=== PATIENT | male | born 1950 | race Caucasian/White ===

== ENCOUNTER 2016-09-10 08:25 | Emergency (ER) | payer OTHER, MEDICAID ==
--- NOTE | 2016-09-10 08:35 | EDPHY ---
H & P Time Seen by Provider: 09/10/16 08:34 HPI/ROS: CHIEF COMPLAINT: Right-sided rib pain HISTORY OF PRESENT ILLNESS: This 66-year-old man fell yesterday morning in the bathroom. He has chronic right-sided weakness after stroke and was getting up off the toilet and slipped. 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 He hit the right side of his chest on tub but was able to get up after about 5 minutes. He presents to the emergency department this morning with right-sided rib pain which started immediately after the fall. He drove himself to the hospital. Does not radiate and it is worse with movement or breathing. Moderate to severe in nature. Slightly alleviated by 1 Vicodin which he took at home. REVIEW OF SYSTEMS: Eye: no change in vision ENT: no sore throat Cardiac: HPI, no syncope. Traumatic chest pain only. Pulmonary: No coughing. Not short of breath. Right-sided chest pain worse with breathing. Abdomen: no vomiting, diarrhea, abdominal pain Musculoskeletal: no back pain or neck pain or extremity pain Skin: no rash Neuro: no headache or loss of consciousness. He has chronic right-sided weakness but walks with a cane and is able to drive. Constitutional: no fever : no urinary symptoms A comprehensive 10 point review of systems is otherwise negative aside from elements mentioned in the history of present illness. PAST MEDICAL HISTORY: Emergency department chart dated 07/28/2016 personally reviewed. Includes stroke in 2009, hypertension, cervical fusion, hepatitis-C, urinary retention, reactive airway disease. Social history: Nonsmoker, lives independently General Appearance: Alert and conversant, cooperative. Eyes: No scleral icterus. ENT, Mouth: Normal mucous membranes. No evidence of external head trauma on exam. Respiratory: Decreased respiratory effort from splinting, breath sounds equal, lungs are clear to auscultation. Cardiovascular: Regular rate and rhythm. Gastrointestinal: Right upper quadrant abdominal tenderness at the costal margin. No rebound or guarding. Neurological: Alert and oriented x3. Normally conversant. Patient has right- sided weakness but is able to move his right arm and leg and is able to walk with a cane. Skin: Scattered bruising. No laceration. Musculoskeletal: No cervical thoracic or lumbar spine tenderness. He is tender to palpation in the mid axillary line and anteriorly over the 10th 11th and 12th ribs on the right. Psychiatric: Not agitated. Emergency Department course/MDM: Percocet 1 p. o.. I-STAT and abdominal pelvis CT for right upper quadrant abdominal tenderness after trauma who is anticoagulated. Chest x-ray. 906: CBC noted but slightly elevated white blood cell count, hematocrit, and platelet count are similar to previous values. 1032: Results discussed, warned no driving, stable for discharge. Likely chest wall contusion without evidence for internal injury. Smoking Status: Never smoked Constitutional: Initial Vital Signs Temperature (C) 37 C 09/10/16 08:29 Heart Rate 78 09/10/16 08:29 Respiratory Rate 20 09/10/16 08:29 Blood Pressure 166/103 H 09/10/16 08:29 O2 Sat (%) 95 09/10/16 08:29 O2 Delivery Mode Room Air Allergies/Adverse Reactions: No Known Allergies Allergy (Verified 09/10/16 08:28) Home Medications: Medication Instructions Recorded Lisinopril 08/22/09 COUMADIN 04/27/11 Flomax 0.4 MG (RX) 07/29/13 Albuterol [Proventil Inhaler HFA 1 - 2 puffs IH Q4H 10/01/14 (RX)] amLODIPine BESYLATE [Norvasc 5 mg 5 mg PO DAILY 10/01/14 (RX)] oxyCODONE/APAP 5/325 [Percocet] 1 tab PO Q4-6PRN PRN #11 tab 09/10/16 Medical Decision Making - Diagnostics Imaging: Chest x-ray and left shoulder x-ray viewed by myself personally in the computer system are negative for acute traumatic injury. CT abdomen and pelvis to evaluate for liver injury reviewed personally by myself and discussed with Dr. Ravi at 10:25 a.m.. No traumatic injury. Specifically no chest pneumothorax or hemothorax, no rib fracture, no liver injury. Differential Diagnosis: Differential for right-sided pain after trauma considered including but not limited to pneumothorax, hemothorax, liver contusion, rib fracture. - Data Points Laboratory Results: Laboratory Results 09/10/16 08:49 09/10/16 09/10/16 08:49 08:48 WBC 12.46 H 10^3/uL (3.80-9.50) RBC 7.02 H 10^6/uL (4.40-6.38) Hgb 19.9 H g/dL (13.7-17.5) POC Hgb 20.7 H* gm/dL (14.5-17.3) Hct 56.5 H % (40.0-51.0) POC Hct 61 H* % (42.8-50.6) MCV 80.5 L fL (81.5-99.8) MCH 28.3 pg (27.9-34.1) MCHC 35.2 g/dL (32.4-36.7) RDW 19.8 H % (11.5-15.2) Plt Count 564 H 10^3/uL (150-400) MPV 10.3 fL (8.7-11.7) Neut % (Auto) 56.0 % (39.3-74.2) Lymph % (Auto) 27.5 % (15.0-45.0) Meagher % (Auto) 10.5 % (4.5-13.0) Eos % (Auto) 3.5 % (0.6-7.6) Baso % (Auto) 1.9 H % (0.3-1.7) Nucleat RBC Rel Count 0.0 % (0.0-0.2) Absolute Neuts (auto) 6.97 H 10^3/uL (1.70-6.50) Absolute Lymphs (auto) 3.43 H 10^3/uL (1.00-3.00) Absolute Monos (auto) 1.31 H 10^3/uL (0.30-0.80) Absolute Eos (auto) 0.43 H 10^3/uL (0.03-0.40) Absolute Basos (auto) 0.24 H 10^3/uL (0.02-0.10) Absolute Nucleated RBC 0.00 10^3/uL (0-0.01) Immature Gran % 0.6 % (0.0-1.1) Immature Gran # 0.08 10^3/uL (0.00-0.10) PT 27.5 H SEC (12.0-15.0) INR 2.53 H (0.83-1.16) POC Sodium 144 mEq/L (134-144) POC Potassium 3.7 mEq/L (3.3-5.0) POC Chloride 105 mEq/L (96-108) POC BUN 16 mg/dL (7-23) POC Creatinine 0.9 mg/dL (0.8-1.5) POC Glucose 122 H mg/dL (70-100) Medications Given: Discontinued Medications Hydromorphone HCl (Dilaudid) 0.5 mg IVP EDNOW ONE Stop: 09/10/16 08:46 Last Admin: 09/10/16 09:00 Dose: Not Given Ondansetron HCl (Zofran) 4 mg IVP EDNOW ONE Stop: 09/10/16 08:46 Last Admin: 09/10/16 09:17 Dose: Not Given Oxycodone/Acetaminophen (Percocet 5/325) 1 tab PO EDNOW ONE Stop: 09/10/16 08:47 Last Admin: 09/10/16 09:00 Dose: 1 tab Point of Care Test Results: 09/10/16 08:48 POC Sodium 144 POC Potassium 3.7 POC Chloride 105 POC BUN 16 POC Creatinine 0.9 POC Glucose 122 H Departure - Departure Disposition: Home, Routine, Self-Care Clinical Impression: Chest wall contusion Qualifiers: Encounter type: initial encounter Laterality: right Qualifier Code: (S20.211A) Contusion of right front wall of thorax, initial encounter Condition: Good Instructions: Contusion in Adults (ED) Referrals: Flower Daniel MD [Non Staff Provider (MD)] - As per Instructions Prescriptions: oxyCODONE/APAP 5/325 [Percocet] 1 tab PO Q4-6PRN PRN #11 tab PRN Reason: Pain
[2016-09-10] MEDS ORDERED: ONDANSETRON 4 MG/2 ML VIAL IVP ONE (08:45)
[2016-09-10] MEDS ORDERED: HYDROmorphONE/DILAUDID 1 MG/ML SYR IVP ONE (08:45)
[2016-09-10] MEDS ORDERED: OXYCODONE/APAP 5/325 TAB PO ONE (08:46)
[2016-09-10 09:03] LABS: % IMMATURE GRANULYOCYTES 0.6 % (0.0-1.1); ABSOLUTE IMMATURE GRANULOCYTES 0.08 10^3/uL (0.00-0.10); ADD DIFF? NO; ADD MORPH? NO; ADD SCAN? NO; ATYPICAL LYMPHOCYTE FLAG 0 (0-99); FRAGMENT RBC FLAG 20 (0-99); HEMATOCRIT 56.5 % (40.0-51.0); HEMOGLOBIN 19.9 g/dL (13.7-17.5); LEFT SHIFT FLG 0 (0-99); LIPEMIA HEMOLYSIS FLAG 90 (0-99); MEAN CELL HEMOGLOBIN 28.3 pg (27.9-34.1); MEAN CELL HEMOGLOBIN CONCENTR. 35.2 g/dL (32.4-36.7); MEAN CELL VOLUME 80.5 fL (81.5-99.8); MEAN PLATELET VOLUME 10.3 fL (8.7-11.7); PLATELET CLUMPS FLAG 10 (0-99); PLATELET COUNT 564 10^3/uL (150-400); RED BLOOD CELL COUNT 7.02 10^6/uL (4.40-6.38); RED CELL DISTRIBUTION WIDTH 19.8 % (11.5-15.2)
[2016-09-10 09:17] LABS: INR 2.53 (0.83-1.16); PROTIME(PATIENT) 27.5 SEC (12.0-15.0)
[2016-09-10] MEDS ORDERED: IOPAMIDOL (ISOVUE-300) 50 ML VIAL IV ONE (09:18)
--- NOTE | 2016-09-10 10:25 | DX ---
Left Shoulder, Three Views Clinical Indications: Pain. Findings: The humeral head is normally located in the glenoid fossa. No fracture or dislocation. Mi ld arthritis is present as expected for age. No calcifications of soft tissues. Impression: Mild arthritic changes. No fracture.
--- NOTE | 2016-09-10 10:33 | CT ---
CT Scan of the Abdomen and Pelvis With Contrast Indication: Pain following trauma. Technique: Multidetector CT images of the abdomen and pelvis were obtained following the uneventful i ntravenous administration of 95 mL Isovue-300 contrast. No oral contrast is administered. Axial image s are obtained at 5 mm intervals and reformatted at 1.5 mm thickness. The examination is reviewed on the workstation at multiple window/level settings. Sagittal and coronal reformations are performed. Dose reduction techniques were utilized for this examination. Abdomen: Lung bases: Bibasilar atelectasis is noted. The heart is enlarged. No displaced rib fracture is seen. No pneumothorax is identified. Liver: The liver enhances normally and the liver contour is normal. Biliary system: The gallbladder is contracted. There is no cholelithiasis. No abnormal fluid collecti ons are seen adjacent to the gallbladder. 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 Pancreas: Normal. Adrenals: Normal. Kidneys: No obstruction or solid masses. Nonobstructive renal calculi are seen bilaterally. Also, sim ple cyst are noted bilaterally with a 3 cm diameter cyst in the left and a 1.5 cm diameter cyst on th e right. Abdominal Aorta: Minimal calcified aortic plaque formation is seen with no aneurysmal dilatation iden tified. No bowel obstruction, ascites, or retroperitoneal lymphadenopathy. CT Pelvis Findings: By history, the appendix is surgically absent. No ascites is identified. The pros boggs is enlarged measuring 6 cm transverse x 5 cm AP x 5 cm cephalocaudal. Moderate fecal material is seen throughout the colon. There is mild straightening of the normal lumbar curvature. Multilevel spinal degenerative changes ar e seen most pronounced at L4-L5 where lumbar canal stenosis is suspected. Impression: 1. Negative for posttraumatic abnormality, specifically, a liver injury is not identified. 2. Basilar atelectasis and mild cardiac enlargement. Negative for pneumothorax. 3. See above report for additional findings. A preliminary report was called to Dr. Femi Reyes at 1030 hours in the Emergency Department.
--- NOTE | 2016-09-10 10:36 | DX ---
PA and Lateral Chest Clinical Indications: Chest pain. History of trauma. Findings: No focal pulmonary consolidation is identified. Basilar atelectasis is noted. Hilar and med iastinal contours are normal. There is no pneumothorax. A displaced rib fracture is not identified. T he heart is enlarged. Pulmonary vascularity is normal. No significant pleural effusions are seen. Postoperative changes of previous cervical spine surgery are noted. Impression: 1. Chest negative for acute posttraumatic sequela. 2. Cardiac enlargement without findings to suggest pulmonary edema.
[2016-09-10 10:37] VITALS: BP 174/104; PULSE 63; RESP 14; TEMP 97.3; O2SAT 92
== END 2016-09-10 10:41 | disposition home or self-care (01) ==
DX: S20.211A Contusion of right front wall of thorax, initial encounter (principal); I10 Essential (primary) hypertension; J45.909 Unspecified asthma, uncomplicated; Z79.01 Long term (current) use of anticoagulants; W18.11XA Fall from or off toilet without subsequent striking against object, initial encounter; Y92.002 Bathroom of unspecified non-institutional (private) residence as the place of occurrence of the external cause
CPT/HCPCS: 71020; 73030; 74177; 99285; Q9967; 82947-QW

== ENCOUNTER 2016-10-09 19:40 | Emergency (ER) | payer OTHER, MEDICAID ==
[2016-10-09 19:56] VITALS: TEMP 97.3
--- NOTE | 2016-10-09 19:58 | EDPHY ---
H & P Stated Complaint: urinary retention Time Seen by Provider: 10/09/16 19:57 - Medical/Surgical History Hx Asthma: Yes Hx Chronic Respiratory Disease: No Hx Diabetes: No Hx Cardiac Disease: Yes Hx Renal Disease: No Hx Cirrhosis: No Hx Alcoholism: No Hx HIV/AIDS: No Hx Splenectomy or Spleen Trauma: No Other PMH: CVA (2009), HTN, Cervical fusion, Chronic hep C, urinary retention, asthma. vertigo x 6 mos - Social History Smoking Status: Never smoked Constitutional: Initial Vital Signs Temperature (C) 36.3 C 10/09/16 19:55 Heart Rate 106 H 10/09/16 19:55 Respiratory Rate 20 10/09/16 19:55 Blood Pressure 202/119 H 10/09/16 19:55 O2 Sat (%) 91 L 10/09/16 19:55 O2 Delivery Mode Room Air Allergies/Adverse Reactions: No Known Allergies Allergy (Verified 10/09/16 19:55) Home Medications: Medication Instructions Recorded Lisinopril 08/22/09 COUMADIN 04/27/11 Flomax 0.4 MG (RX) 07/29/13 Albuterol [Proventil Inhaler HFA 1 - 2 puffs IH Q4H 10/01/14 (RX)] amLODIPine BESYLATE [Norvasc 5 mg 5 mg PO DAILY 10/01/14 (RX)] Medical Decision Making ED Course/Re-evaluation: CHIEF COMPLAINT: Urinary retention HISTORY OF PRESENT ILLNESS: The patient is a 66 y/o male complaining of urinary retention onset earlier this afternoon. He reports his last urination was around 14:00 today. He says, "I've been drinking beer all day" and apparently drove to the ED tonight. He is followed by a urologist for this issue and has required catheterization previously. REVIEW OF SYSTEMS: A 10 point review of systems was performed and is negative with the exception of the elements mentioned in the history of present illness. PHYSICAL EXAM: HR, BP, O2 Sat, RR. Temp noted General Appearance: Alert, well hydrated, appropriate, and non-toxic appearing. Smells of alcohol. Head: Atraumatic without scalp tenderness or obvious injury Eyes: Pupils equal, round, reactive to light and accommodation, EOMI, no trauma , bilateral conjunctival injection Ears: Clear bilaterally, no perforation, normal landmarks Nose: Atraumatic, no rhinorrhea, clear. Throat: There is no erythema or exudates, no lesions, normal tonsils, mucus membranes moist. Poor dentition Neck: Supple, 2+ carotid upstroke, nontender, no lymphadenopathy. Respiratory: No retractions, no distress, no wheezes, and no accessory muscle use. Lungs are clear to auscultation bilaterally. Cardiovascular: Regular rate and rhythm, no murmurs, rubs, or gallops. Bilateral carotid, radial, dorsalis pedis, and posterior tibial pulses intact. Good capillary refill all extremities. Gastrointestinal: Abdomen is soft, nontender, non-distended, no masses, no rebound, no guarding, no peritoneal signs. Musculoskeletal: Normal active ROM of all extremities, atraumatic. Neurological: Alert, appropriate, and interactive. The patient has normal DTRs and non-focal cranial nerves, motor, sensory, and cerebellar exam. Skin: No rashes, good turgor, no nodules on palpation. Face is flushed. Past medical history: Urinary retention, CVA, hepatitis C, asthma Past surgical history: cervical fusion Family history: noncontributory Social history: Heavy alcohol use DIFFERENTIAL DIAGNOSIS: The differential diagnosis for the patient's urinary retention included but was not limited to medication side effect, neurologic causes, outflow obstruction including prostatic hypertrophy, and infection. MEDICAL DECISION MAKING: This is a 66 y/o male presenting with 6 hours of urinary retention after "drinking beer all day." He has a history of urinary retention requiring catheterization previously. He denies other complaints. Bladder scan shows 600mL. Ruggiero catheter placed by RN with alleviation of patient's symptoms. Breathalyzer is below legal limit. Patient will be discharged home with leg bag and referral to urology for removal of catheter in 2 days. He agrees with plan. Departure - Departure Disposition: Home, Routine, Self-Care Clinical Impression: Urinary retention Condition: Good Instructions: [facility] Patient Education, Infection Prevention, Urinary Retention in Men (ED), Ruggiero Catheter Placement and Care (ED) Additional Instructions: Follow up with urology in 2 days for catheter removal. Return to ED for worsening of condition. [place]errals: [place],. [Primary Care Provider] - As per Instructions Jacob Darnell MD [Medical Doctor] - As per Instructions Report Scribed for: Wood Garibay Report Scribed by: Kaylah Carrera Date of Report: 10/09/16 Time of Report: 20:00
[2016-10-09 21:24] VITALS: BP 178/65; PULSE 85; RESP 18; O2SAT 94
== END 2016-10-09 21:24 | disposition home or self-care (01) ==
PROC: 0T9B70Z Drainage of Bladder with Drainage Device, Via Natural or Artificial Opening (ICD-10-PCS; principal; 2016-10-09)
DX: R33.9 Retention of urine, unspecified (principal); J45.909 Unspecified asthma, uncomplicated; I10 Essential (primary) hypertension; Z86.73 Personal history of transient ischemic attack (TIA), and cerebral infarction without residual deficits; Z79.01 Long term (current) use of anticoagulants

== ENCOUNTER → 2016-11-04 | Outpatient (CLI) | payer OTHER, MEDICAID | LOC: BHFA 10:00 | PROVIDERS: ATTEND Internal Medicine | DX: I10 Essential (primary) hypertension (principal); E78.5 Hyperlipidemia, unspecified; I27.2 Other secondary pulmonary hypertension; I73.9 Peripheral vascular disease, unspecified; I63.9 Cerebral infarction, unspecified ==

== ENCOUNTER → 2016-11-07 | Outpatient (CLI) | payer OTHER, MEDICAID | LOC: FIMAGING 10:13 | PROVIDERS: ATTEND Internal Medicine | DX: Z01.810 Encounter for preprocedural cardiovascular examination (principal); Z98.1 Arthrodesis status ==

== ENCOUNTER → 2016-11-14 | Outpatient (CLI) | payer OTHER, MEDICAID | LOC: BHFA 08:30 | PROVIDERS: ATTEND Internal Medicine Cardiovascular Disease | DX: R06.00 Dyspnea, unspecified (principal) ==

== ENCOUNTER → 2016-11-17 | Outpatient (CLI) | payer OTHER, MEDICAID | LOC: BHFA 13:00 | PROVIDERS: ATTEND Internal Medicine Cardiovascular Disease | DX: R06.09 Other forms of dyspnea (principal) | CPT/HCPCS: 78452; 93017; A9500; J2785 ==

== ENCOUNTER 2016-11-22 09:07 | Emergency (ER) | payer OTHER, MEDICAID ==
[2016-11-22 09:12] VITALS: BP 177/97; PULSE 88; RESP 18; O2SAT 92
--- NOTE | 2016-11-22 09:29 | EDPHY ---
H & P Stated Complaint: Wants pack removed-pranay Contreras - Personal History Current Tetanus/Diphtheria Vaccine: No - Medical/Surgical History Hx Asthma: Yes Hx Chronic Respiratory Disease: No Hx Diabetes: No Hx Cardiac Disease: Yes Hx Renal Disease: No Hx Cirrhosis: No Hx Alcoholism: No Hx HIV/AIDS: No Hx Splenectomy or Spleen Trauma: No Other PMH: CVA (2010), HTN, Cervical fusion, Chronic hep C, urinary retention, asthma. vertigo x 6 mos - Social History Smoking Status: Never smoked HPI/ROS: Chief complaint: Pack catheter removal History of present illness: This is a 66-year-old male with a history of BPH who presents to the emergency department requesting his Pack catheter be removed. Patient is followed by Dr. Lakhwinder Medina of Urology. He reports he had a catheter placed just over a month ago. It was replaced just over a week ago after it became heavily sedimented and bloody. He states the catheter has become sedimented and bloody again and would just like it removed. He denies any other complaints at this time. (Tj Adams) - Physical Exam Exam: General: Alert, nontoxic Abdomen: Soft, nondistended, nontender Genitourinary: Pack catheter in place, catheter bag does have some blood in it and is heavily sedimented (Tj Adams) Constitutional: Initial Vital Signs Heart Rate 88 11/22/16 09:10 Respiratory Rate 18 11/22/16 09:10 Blood Pressure 177/97 H 11/22/16 09:10 O2 Sat (%) 92 11/22/16 09:10 O2 Delivery Mode Room Air Allergies/Adverse Reactions: No Known Allergies Allergy (Verified 11/22/16 09:13) Home Medications: Medication Instructions Recorded Lisinopril 08/22/09 COUMADIN 04/27/11 Flomax 0.4 MG (RX) 07/29/13 Albuterol [Proventil Inhaler HFA 10/01/14 (RX)] amLODIPine BESYLATE [Norvasc 5 mg 10/01/14 (RX)] Medical Decision Making ED Course/Re-evaluation: Patient seen under the supervision of my secondary supervising physician Dr. Suze Negro. Patient presents to the emergency department requesting his Pack catheter be removed. He is afebrile, vital signs are stable. He is nontoxic. Pack catheter bag does appear to be heavily sedimented with blood in it. I have discussed options with him including following up with his urologist, just changing out the Pack catheter but he wants it to be completely removed and to be discharged. I have discussed that it is likely he will have recurrence of urinary retention. He states he will follow up with his urologist, Dr. Contreras. I have consulted with his Urology group, Dr. Willis who is aware the Pack catheter has been removed. (Tj Adams) This patient was primarily evaluated and managed by the physician planning assistant. I am the secondary supervising physician. (Suze Negro) Departure - Departure Disposition: Home, Routine, Self-Care Clinical Impression: Encounter for Pack catheter removal Condition: Good Instructions: Pack Catheter Placement and Care (ED) Additional Instructions: Follow-up with your urologist this week for recheck If symptoms worsen or new symptoms develop return to the emergency room for recheck Referrals: Cathy Ying, [Primary Care Provider] - As per Instructions
[2016-11-22 09:54] VITALS: TEMP 97.7
== END 2016-11-22 09:55 | disposition home or self-care (01) ==
DX: Z46.6 Encounter for fitting and adjustment of urinary device (principal); J45.909 Unspecified asthma, uncomplicated; I10 Essential (primary) hypertension; Z79.01 Long term (current) use of anticoagulants; Z86.73 Personal history of transient ischemic attack (TIA), and cerebral infarction without residual deficits

== ENCOUNTER 2016-12-22 10:16 | Observation (INO) | payer OTHER, MEDICAID ==
[~2016-12-22 10:16] MED LIST: levOFLOXACIN 500 MG/DEXTROSE 100 ML IV ONE
[2016-12-22] MEDS ORDERED: levOFLOXACIN 500 MG/DEXTROSE/100 ML BAG IV ONE (10:53)
[2016-12-22] MEDS ORDERED: LIDOCAINE 1% 2 ML INJ ONE (10:54)
[2016-12-22] MEDS ORDERED: LIDOCAINE 1% 5 ML SDV ID PRN (11:19)
[2016-12-22] MEDS ORDERED: LR 1,000 ML IV ONE (11:19)
[2016-12-22 11:36] LABS: INR 1.06 (0.83-1.16); PROTIME(PATIENT) 13.7 SEC (12.0-15.0)
[2016-12-22 11:37] LABS: APTT 31.5 SEC (23.0-38.0)
[2016-12-22] MEDS ORDERED: LIDOCAINE 2% 5 ML SDV ONE (16:49)
[2016-12-22] MEDS ORDERED: fentaNYL 100 MCG/2 ML INJ ONE ×3 (16:49→18:12)
[2016-12-22] MEDS ORDERED: PROPOFOL 200 MG/20 ML VIAL ONE ×2 (16:49)
[2016-12-22] MEDS ORDERED: DEXAMETHASONE 4 MG/ML VIAL ONE (16:50)
--- NOTE | 2016-12-22 16:50 | POSTOPPROG ---
Post Op Note Date of Operation: 12/22/16 Surgeon: Marina Medina (# [id number]) Anesthesia: GET(General Endotracheal) Pre-op Diagnosis: BPH w/ urinary retention Post-op Diagnosis: 1. BPH w/ urinary retention 2. Bladder calculi Procedure: 1. Complex cystolitholapaxy w/ holmium laser 2. Greenlight PVP Findings: See op note Inf/Abcess present in the surg proc area at time of surgery?: No EBL: 50-100 (100 cc) Complications: None Specimen(s): Bladder calculus fragments
[2016-12-22] MEDS ORDERED: DIAZEPAM 10 MG/2 ML SYR ONE (16:58)
[2016-12-22] MEDS ORDERED: LABETALOL HCL 5 MG/ML 20 ML MDV ONE (18:12)
[2016-12-22] MEDS ORDERED: morphINE *ANESTHESIA ONLY* 10 MG/ML VIAL ONE (18:33)
[2016-12-22] MEDS ORDERED: LIDOCAINE 2% JELLY 5 ML TUBE TP PRN (19:16)
[2016-12-22] MEDS ORDERED: ONDANSETRON 4 MG/2 ML VIAL IVP PRN (19:16)
[2016-12-22] MEDS ORDERED: OPIUM/BELLADONNA ALKALO SUPP PR PRN (19:16)
[2016-12-22] MEDS ORDERED: LABETALOL HCL 50 MG/10 ML SYR ONE (19:22)
[2016-12-22] MEDS ORDERED: D5W 1/2 NS 1,000 ML IV SCH (19:30)
--- NOTE | 2016-12-22 19:43 | GOP ---
[f rep st] OPERATIVE REPORT DATE OF OPERATION: 12/22/2016 SURGEON: Marina Medina MD ANESTHESIA: General endotracheal. PREOPERATIVE DIAGNOSIS: Benign prostatic hypertrophy with urinary retention. POSTOPERATIVE DIAGNOSIS: 1. Benign prostatic hypertrophy with urinary retention. 2. Bladder calculi. PROCEDURE PERFORMED: 1. Complex cystolitholapaxy with holmium laser. 2. GreenLight photovaporization of the prostate. FINDINGS: 1. Significant BPH. 2. Multiple wafer thin bladder calculi. SPECIMENS: Bladder calculus fragments. ESTIMATED BLOOD LOSS: Approximately 100 cc. INDICATIONS: This gentleman has had recurrent urinary retention requiring indwelling Ruggiero catheter for the last several months. He has been noted to have BPH with significant obstruction on office cystoscopy and urodynamics. He had an indwelling Ruggiero catheter until approximately 2 weeks ago when he requested to have it removed. He presents for operative management at this time. The indications for the procedures, as well as potential risks and complications, were discussed with the patient preoperatively. He appeared to understand, his questions were answered, and he wished to proceed. Written informed surgical consent was thereafter obtained. DESCRIPTION OF PROCEDURE: The patient was brought to the operating room and administered general endotracheal anesthesia. He was carefully placed in the dorsal lithotomy position on the cystoscopic table. The genital area was sterilely prepped with Betadine scrub and paint then draped in the usual sterile fashion. Cystoscopy was initially performed with the GreenLight XPS laser bridge and sheath utilizing the 30 degree lens. Anterior urethra was unremarkable. Posterior urethra revealed significant circumferential BPH and secondary obstruction with a prominent intravesical median lobe. Noted within the bladder were several wafer thin calculi that measured up to approximately 2 cm in length each. The bladder was heavily trabeculated. Full cystoscopy was previously performed and was not repeated here. These calculi were not present at the time of office cystoscopy, which was performed about 2 months ago. The 550 micron holmium laser fiber was advanced through the laser bridge and utilized to fragment the calculi into minute pieces. These were extracted from the bladder using an Ellik evacuator. I then turned my attention to performing the GreenLight photovaporization of the prostate. The GreenLight XPS fiber was brought onto the field and inserted through the laser bridge. Starting with 60 joshi of energy, I painted the prostatic mucosal surface from the bladder neck and extending back toward the verumontanum. I gradually increased to a maximum of 120 joshi of energy, which was the maximum setting used throughout the laser vaporization portion of the case. While vaporizing the anterior tissue near the bladder neck, I did encounter some significant venous bleeding, and possibly arterial bleeding, that I could not control with the laser. Therefore, I temporarily inserted the Sprague resectoscope with a button electrode and thoroughly cauterized the bleeding area until hemostasis was achieved. I then resumed GreenLight photovaporization of the prostate with the GreenLight XPS fiber. Vaporization was performed circumferentially down to approximately capsular fibers. The adenoma near the verumontanum was vaporized with no more than 100 joshi of energy in order to minimize heat exposure to the external urinary sphincter. At the conclusion of the procedure, the prostatic fossa was widely patent, ureteral orifices were well-preserved, and no vaporization had taken place distal to the verumontanum. The instruments were removed and a 22-Turkish, 3- way Ruggiero catheter inserted with the use of a catheter guide. 35 cc of sterile fluid was placed in the balloon and the catheter irrigated manually at the end of the case with the return being dark pink. The catheter was connected to continuous irrigation, and gauze traction was placed around the catheter against the penile glans to assist with initial hemostasis. The patient was then awakened, extubated, transferred to his bed, then taken to the recovery room. He tolerated the procedure well overall. COMPLICATIONS: None. DISPOSITION: He was transferred to the recovery room in stable condition. Because of his coagulopathy history and somewhat more bleeding that was encountered intraoperatively than would be typically seen, I will be admitting him overnight for continuous bladder irrigation. /[id number]/MODL MTDD
[2016-12-22] MEDS ORDERED: ENALAPRILAT DIHYDRATE 1.25 MG/ML VIAL ONE (19:49)
[2016-12-22] MEDS: HYDROCODONE/APAP 5/325 TAB PO PRN (21:21)
[2016-12-23] MEDS: HYDROCODONE/APAP 5/325 TAB PO PRN (01:52)
[2016-12-23] MEDS ORDERED: amLODIPine BESYLATE 5 MG TAB PO SCH (09:00)
[2016-12-23] MEDS ORDERED: ALBUTEROL 200 PUFFS/18 GM MDI IH SCH (09:00)
[2016-12-23 09:19] VITALS: RESP 18
--- NOTE | 2016-12-23 10:00 | SOAPPROG ---
SOAP Progress Note Assessment/Plan: Assessment: POD 1 s/p TURBT - doing well. Plan: D/C w/ Ruggiero. Office removal on Monday. Resume anticoags as ordered. Objective: Vital Signs Temp Pulse Resp BP Pulse Ox 36.4 C 72 18 130/85 H 92 12/23/16 07:32 12/23/16 09:11 12/23/16 09:11 12/23/16 08:24 12/23/16 09:11 12/22/16 12/23/16 12/24/16 05:59 05:59 05:59 Intake Total 1440 Output Total 0 1750 Balance 1440 -1750 PT 13.7 SEC (12.0-15.0) 12/22/16 11:00 INR 1.06 (0.83-1.16) 12/22/16 11:00 Physical Exam - Physical Exam General Appearance: WD/WN, alert, no apparent distress Abdomen: non-tender, soft Male Genitalia: other (urine slightly blood tinged off CBI) Skin: warm/dry Extremities: non-tender Neuro/Psych: alert, normal mood/affect ICD10 Worksheet Patient Problems: Problems Problem Status Onset Acute retention of urine Acute
[2016-12-23] MEDS ORDERED: chlorproMAZINE HCL 25 MG TAB PO ONE (11:30)
[2016-12-23 12:16] VITALS: BP 140/84; PULSE 71; TEMP 97.9; O2SAT 91
== END 2016-12-23 12:30 | disposition home or self-care (01) ==
LOC: FSGY 10:16 → F1N 19:15
PROVIDERS: ADMIT Specialist; ATTEND Specialist
DX: R33.9 Retention of urine, unspecified (principal); N40.0 Benign prostatic hyperplasia without lower urinary tract symptoms; R35.1 Nocturia; R03.0 Elevated blood-pressure reading, without diagnosis of hypertension; R97.20 Elevated prostate specific antigen [PSA]; Z87.442 Personal history of urinary calculi; Z85.828 Personal history of other malignant neoplasm of skin; Z86.19 Personal history of other infectious and parasitic diseases; Z86.73 Personal history of transient ischemic attack (TIA), and cerebral infarction without residual deficits; Z79.01 Long term (current) use of anticoagulants
CPT/HCPCS: 52317; 52648; J1100; J1956; J2704; J3010; J3490; 82365-90

== ENCOUNTER → 2017-12-08 | Outpatient (CLI) | payer OTHER, MEDICAID | LOC: FIMAGING 08:09 | PROVIDERS: ATTEND Internal Medicine | DX: K80.20 Calculus of gallbladder without cholecystitis without obstruction (principal); N28.1 Cyst of kidney, acquired; B18.2 Chronic viral hepatitis C ==

== ENCOUNTER 2018-06-20 09:49 | Emergency (ER) | payer OTHER, MEDICAID ==
[2018-06-20 10:03] VITALS: BP 153/100
--- NOTE | 2018-06-20 10:16 | EDPHY ---
H & P Stated Complaint: right foot- ingrown toenail big toe, blood blister pinky toe, heel problem Source: Patient Exam Limitations: No limitations - Personal History Current Tetanus Diphtheria and Acellular Pertussis (TDAP): Yes - Medical/Surgical History Hx Asthma: Yes Hx Chronic Respiratory Disease: No Hx Diabetes: No Hx Cardiac Disease: Yes Hx Renal Disease: No Hx Cirrhosis: No Hx Alcoholism: No Hx HIV/AIDS: No Hx Splenectomy or Spleen Trauma: No Other PMH: CVA (2010), HTN, Cervical fusion, Chronic hep C, urinary retention, asthma. vertigo x 6 mos - Social History Smoking Status: Never smoked Time Seen by Provider: 06/20/18 10:15 HPI/ROS: HPI: This is a 60-year-old male who presents with Chief Complaint: right foot- ingrown toenail big toe, blood blister pinky toe, heel problem Location: Right foot Quality: Ingrown toenail, blood blister, heel Duration: 1 month Signs and Symptoms: No bleeding, no radiation, no numbness, no weakness, no tingling, no incontinence, no decreased range of motion, no swelling, + pain, no fever Timing: Daily Severity: Mild Context: Patient has a history of CVA in 2009 On Coumadin, presents with multiple complaints on his right foot. He reports that his heel is dry and cracked, he has an ingrown toenail on his right great toe and his right pinky toe has a blood blister on the medial aspect. He saw Podiatry last week and was given antibiotics and had his ingrown toenail removed but he reports that he has not taken antibiotics and still has pain. Uses a cane to aid ambulation. Denies drainage, bleeding, radiation, weakness, decreased range of motion. Reports he had a blood draw this morning to determine if he has"bone cancer." Modifying Factors: See above Comment: ROS: A comprehensive 10 system review of systems is otherwise negative aside from elements mentioned in the history of present illness. MEDICAL/SURGICAL/SOCIAL HISTORY: Medical history: CVA (2010), HTN, Cervical fusion, Chronic hep C, urinary retention, asthma vertigo x 6 mos Surgical history: Denies Social history: Disabled. Never smoked. CONSTITUTIONAL: Nontoxic-appearing, chronically ill-appearing, elderly white male, awake and alert, no obvious distress HEENT: Atraumatic and normocephalic. NECK: supple. EXTREMITIES: 2/2 pulses, strength 5/5, right Ankle: Plantar flexion to 50, dorsiflexion to 20. Foot inversion to 35 degree. No tenderness/swelling Anterior talofibular ligament. No tenderness/swelling Calcaneofibular ligament , no tenderness/swelling posterior talofibular ligament, no tenderness/swelling posterior inferior tibiofibular ligament. Achilles tendon intact. Right great toe shows no significant erythema in the lateral or proximal nail fold; no fluctuance. Right little pinky toe on the medial aspect DIP/PIP/MCP flexion/ extension intact with good light touch sensation. no deformities, no clubbing, no cyanosis or edema. NEUROLOGICAL: no focal neuro deficits. GCS 15. Light touch sensation intact. SKIN: Warm and dry, no erythema. no rash. Good capillary refill. (Anisha Rizvi) Constitutional: Initial Vital Signs Temperature (C) 36.4 C 06/20/18 09:59 Heart Rate 78 06/20/18 09:59 Respiratory Rate 16 06/20/18 09:59 Blood Pressure 153/100 H 06/20/18 09:59 O2 Sat (%) 92 06/20/18 09:59 O2 Delivery Mode Room Air Allergies/Adverse Reactions: No Known Allergies Allergy (Verified 11/22/16 09:13) Home Medications: Medication Instructions Recorded Albuterol [Proventil Inhaler HFA 1 - 2 puffs IH DAILY PRN 12/22/16 (*)] Atorvastatin Calcium [Lipitor 40 40 mg PO DAILY 12/22/16 mg (*)] Gabapentin [Neurontin 100 MG (*)] 100 mg PO DAILY PRN 12/22/16 Lisinopril [Zestril 10 mg (*)] 10 mg PO DAILY 12/22/16 amLODIPine BESYLATE [Norvasc 5 mg 5 mg PO DAILY 12/22/16 (*)] Albuterol [Ventolin Hfa Inhaler] 2 puffs IH DAILY #0 mdi 12/23/16 Enoxaparin [Lovenox 80 MG (*)] 80 mg SQ [id number] #0 12/23/16 Hydrocodone/APAP 5/325 [[place] 1 - 2 tab PO Q4 PRN #15 tab 12/23/16 5/325 (*)] Warfarin Sodium [Coumadin 5MG (*)] 2.5 mg PO MOWEFR #0 12/23/16 Warfarin Sodium [Coumadin 5MG (*)] 5 mg PO SUTUTHSA #0 12/23/16 amLODIPine BESYLATE [Norvasc 5 mg 5 mg PO DAILY #0 tab 12/23/16 (*)] Medical Decision Making - Diagnostics Imaging Results: Imaging Impressions Foot X-Ray 06/20/18 10:40 Impression: 1. Mild degenerative changes right first toe with mild hallux valgus is detailed above. ED Course/Re-evaluation: Vital signs reviewed and show mildly elevated blood pressure. I provided local anesthesia of 1% lidocaine at his right great toe lateral nail folds for immediate relief and discomfort. Cleaned with soap and water; bacitracin and clean sterile dressing applied. Given Augmentin in the ER and advised to continue antibiotic prescribed by Podiatry. Right little toe overlaps the right 4th toe causing rubbing and abrasion; 2 x 2 gauze placed in between the 4th and 5th toes to prevent rubbing. Right foot x-ray my read shows degenerative changes, no calcaneal spur, no fracture. No signs of neurovascular compromise/tenting of skin/compartment syndrome/ extremities and joints examined above and below area of concern and are neurovascularly intact. This patient was seen under the supervision of my secondary supervising physician. I evaluated care for this patient independently. Discussed this patient with Dr. Quinonez. (Anisha Rizvi) Differential Diagnosis: Differential diagnosis includes but is not limited to ingrown toenail infection , blood blister, cellulitis, abscess, dry skin. (Anisha Rizvi) Other Provider: PHYSICIAN DOCUMENTATION: The patient was evaluated and managed by the Physician Helicopter Specialist. My co- signature indicates that I have reviewed this chart and I agree with the findings and plan of care as documented. I am the secondary supervising physician. (Erasmo Quinonez) - Data Points Medications Given: Discontinued Medications Amoxicillin/Clavulanate Potassium (Augmentin 875mg) 875 mg PO EDNOW ONE PRN Reason: Protocol Stop: 06/20/18 10:41 Last Admin: 06/20/18 10:43 Dose: 875 mg Departure - Departure Disposition: Home, Routine, Self-Care Clinical Impression: Ingrown nail of great toe of right foot, Cracked skin on feet Abrasion of toe, right, infected Qualifiers: Encounter type: initial encounter Qualified Code(s): S90.414A - Abrasion, right lesser toe(s), initial encounter Condition: Good Instructions: Ingrown Nail (ED), Bunion (ED) Additional Instructions: Place gauze in between the 4th and 5th toes on the right foot to prevent rubbing. Do not wear tight shoes. Wash feet daily with antibacterial soap and pat dry. Apply lotion to heels and wear socks at night. Take Tylenol 650 mg every 4 hours and/or Ibuprofen 600 mg every 8 hours with food as needed for pain. Take antibiotic as directed by Podiatry. Do not skip a dose. Complete entire course. Follow-up with primary care provider or Podiatry in 5-7 days if no improvement. Right foot X-rays today in the emergency room show degenerative changes but no fracture. Referrals: Cathy Ying, [Primary Care Provider] - 5-7 days, if not improved
[2018-06-20] MEDS ORDERED: AMOXICILLIN/CLAVULANATE POT 875/125 MG TAB PO ONE (10:40)
== END 2018-06-20 11:36 | disposition home or self-care (01) ==
DX: S90.414A Abrasion, right lesser toe(s), initial encounter (principal); L60.0 Ingrowing nail; B18.2 Chronic viral hepatitis C; I10 Essential (primary) hypertension

== ENCOUNTER 2018-07-10 13:19 | Inpatient (IN) | payer OTHER, MEDICAID ==
[2018-07-10] MEDS ORDERED: HYDROCODONE/APAP 5/325 TAB PO ONE (14:54)
[2018-07-10] MEDS ORDERED: fentaNYL 100 MCG/2 ML INJ IVP ONE (14:55)
--- NOTE | 2018-07-10 14:56 | EDPHY ---
H & P Stated Complaint: sent from pc for wound infection r foot - Personal History Current Tetanus Diphtheria and Acellular Pertussis (TDAP): Yes - Medical/Surgical History Hx Asthma: Yes Hx Chronic Respiratory Disease: No Hx Diabetes: No Hx Cardiac Disease: Yes Hx Renal Disease: No Hx Cirrhosis: No Hx Alcoholism: No Hx HIV/AIDS: No Hx Splenectomy or Spleen Trauma: No Other PMH: CVA (2009), HTN, Cervical fusion, Chronic hep C, urinary retention, asthma. vertigo x 6 mos - Social History Smoking Status: Never smoked <Jim Tripp N - Last Filed: 07/10/18 17:21> <Zoë Rowell - Last Filed: 07/10/18 21:03> Time Seen by Provider: 07/10/18 14:23 HPI/ROS: CLINICAL IMPRESSION: ASSESSMENT/PLAN: 60-year-old male with multiple comorbidities including polycythemia vera, previous CVA with chronic hemiparesis, atrial fibrillation, hypertension, and chronic anticoagulated presents to the emergency department by primary care for evaluation of chronic right foot ulcers associated with new temperature change to the right foot and new sensory changes to the foot. On exam, patient has chronic appearing ulcers to the right 5th toe and calcaneus of the right foot. He is a sensate to the medial aspect of the foot with reports of pain to palpation of the right 5th toe. No overlying erythema, purulent discharge, significant swelling. Unable to palpate or obtain Doppler pedal pulses or posterior tibialis pulses. Lower leg and upper leg are normal in temperature with no reproducible pain and patient has normal femoral pulses. Abdomen is soft with no focal peritoneal findings. Concern for vascular insufficiency as a cause for his chronic nonhealing wounds. Labs obtained and CTA abdomen with bilateral runoff ordered. Patient was signed out to Dr. Rowell at 5:30 p.m. Pending completion of diagnostic workup. He received IV and oral analgesics with improvement in pain and is stable at time of sign-out. DIFFERENTIAL DX: Differential diagnosis includes but not limited to chronic lower extremity ulcers, osteomyelitis, peripheral vascular insufficiency, vascular or arterial thrombus. ED PROCEDURES: ED COURSE: 1545: Labs reviewed, CT a orders, case discussed with Dr. Rowell CHIEF COMPLAINT: Chronic foot ulcers HPI: This is a 68-year-old male sent to the ED by [facility] with past medical history of polycythemia vera, atrial fibrillation on anticoagulation, CVA with hemiparesis, and chronic right foot ulcers who presents to the ED today with worsening foot pain, a loss of sensation to the inner aspect of the foot, and a cold sensation to the foot. Patient reports he has developed sores on the bottom of his foot over the last month. He has been working with primary care and wound care. He was supposed appointment with wound care today but did not attend due to pain. He ran out of Lyrica 3 days ago which was helping his pain and he did receive a refill today. He does not report a history of diabetes. No associated fever or chills. He was also working with Podiatry who advised he changed his footwear. No complaints of discharge or bleeding from his wounds. He does have increased pain over the right 5th toe and reports he has a new numbness to the inner aspect of the foot. No calf swelling or discomfort. No abdominal pain, nausea or vomiting. No chest pain or shortness of breath. His last INR was approximately week and half ago was 2.3. He is also working with [facility] for his polycythemia vera. PMH: Polycythemia vera, chronic hemiparesis secondary to CVA, asthma, chronic hep C, hypertension, peripheral vascular disease, atrial fibrillation Pertinent Past Surgical History: Noncontributory Family History: Not asked Social History: Nonsmoker ROS: All other systems negative Constitutional: No fever, no chills, appetite change. Cardiovascular: No chest pain, no palpitations. Respiratory: No cough, no shortness of breath. Gastrointestinal: No abdominal pain, no vomiting, diarrhea. Genitourinary: No hematuria, dysuria, flank pain, pelvic pain Musculoskeletal: No back pain, joint swelling, +joint pain, myalgias. Skin: No rashes, color change. Neurological: No headache, dizziness, weakness, positive numbness to right foot PHYSICAL EXAM: General Appearance: Alert, oriented, appropriate, cooperative, NAD, well hydrated, non-toxic appearing, VSS, no hypoxia. Respiratory: There are no retractions, lungs are clear to auscultation. Cardiac: Regular rate and rhythm, no murmurs or gallops. Gastrointestinal: Abdomen is soft, nontender, bowel sounds normal, no masses/ hernia, no rigidity, guarding or focal peritoneal findings. Neurological: Alert and oriented x 3, CN 2-12 grossly intact, decreased subjective sensation to dull and sharp touch on the inner aspect of the right foot. Intact sensation on the lateral right foot. Cap refill 3 sec on the right unable to palpate posterior tibialis and pedal pulses on the right Skin: Warm, dry, no rashes, no nodules on palpation, no cyanosis or pallor to the foot. Musculoskeletal: Extremities are symmetrical, full range of motion, necrotic ulcer to the tip of the right 5th toe, chronic appearing ulcer to the calcaneus of the right foot. No surrounding or overlying erythema, warmth, swelling, discharge. Reproducible pain to palpation of the right 5th toe. No pain or swelling to the right calf which is normal temperature although the right foot is cool to touch. Psychiatric: Patient is oriented X 3, there is no agitation. MEDICAL DECISION MAKING: Patient was seen independently by established practice protocols. Secondary supervising physician at time of evaluation was Dr. Rowell. Diagnosis: . New, requires workup Summary: See Assessment and Plan for summary of ED visit Clinical lab tests: ordered / reviewed. Independent visualization of images, tracing, or specimens: Yes. Decision to obtain medical records or history from someone other than the patient: Notes from [facility] Discussed patient with another provider: Dr. Rowell Risk of comlications, morbidity, mortality: Presenting problem moderate Diagnostic procedures mother Management Options mode Patient Progress: Stable at time of sign-out. (Jim Tripp) Constitutional: Initial Vital Signs Temperature (C) 36.5 C 07/10/18 13:27 Heart Rate 103 H 07/10/18 13:27 Respiratory Rate 17 07/10/18 13:27 Blood Pressure 153/103 H 07/10/18 13:27 O2 Sat (%) 94 07/10/18 13:27 O2 Delivery Mode Room Air Allergies/Adverse Reactions: No Known Allergies Allergy (Verified 07/10/18 13:25) Home Medications: Medication Instructions Recorded Albuterol [Proventil Inhaler HFA 1 - 2 puffs IH DAILY PRN 12/22/16 (*)] Atorvastatin Calcium [Lipitor 40 40 mg PO DAILY 12/22/16 mg (*)] amLODIPine BESYLATE [Norvasc 5 mg 5 mg PO DAILY 12/22/16 (*)] Ibuprofen [Ibuprofen] 800 mg PO TIDMEAL 07/10/18 Lisinopril/Hctz 20/12.5MG 1 tab PO DAILY 07/10/18 [Zestoretic/Prinzide 20/12.5MG (*)] Pregabalin [Lyrica 75mg (*)] 75 mg PO BID 07/10/18 Warfarin Sodium [Coumadin 5MG (*)] 2.5 mg PO SUMOWEFR@19 07/10/18 Warfarin Sodium [Coumadin 5MG (*)] 5 mg PO TUTHSA@19 07/10/18 Medical Decision Making <Jim Tripp - Last Filed: 07/10/18 17:21> - Diagnostics Imaging: Discussed imaging studies w/ call or contact centre operator Radiologist, I viewed and interpreted images myself <Zoë Rowell - Last Filed: 07/10/18 21:03> ED Course/Re-evaluation: This patient was seen and examined by me. He presents with a month long history of right lower extremity pain, now with inability to walk because of severe pain and numbness in the right foot. On physical exam his right foot is warm, no swelling, no palpable pulse. No pulse by Doppler. CT angiogram reveals a right SFA occlusion. Results were discussed with the patient. Risks and benefits of IV heparin discussed with the patient and he concurs with anticoagulation. Heparin per weight based protocol initiated. Dr. Zaldivar was consulted and saw the patient in the ED. The hospitalist service was consulted for admission. I spent a total of 35 minutes of critical care time in obtaining history, performing a physical exam, bedside monitoring of interventions, collecting and interpreting tests and discussion with consultants but not including time spent performing procedures. At risk: rt lower extremity (Zoë Rowell) Differential Diagnosis: Includes does not limited to DVT, cellulitis, osteomyelitis, necrotizing fasciitis, abscess (Zoë Rowell) - Data Points Laboratory Results: Laboratory Results 07/10/18 16:50 07/10/18 15:10 07/10/18 07/10/18 07/10/18 16:50 16:50 15:14 WBC 16.67 10^3/uL H 10^3/uL (3.80-9.50) RBC 7.45 10^6/uL H 10^6/uL (4.40-6.38) Hgb 17.9 g/dL H g/dL (13.7-17.5) Hct 54.1 % H % (40.0-51.0) MCV 72.6 fL L fL (81.5-99.8) MCH 24.0 pg L pg (27.9-34.1) MCHC 33.1 g/dL g/dL (32.4-36.7) RDW 21.2 % H % (11.5-15.2) Plt Count 760 10^3/uL H 10^3/uL (150-400) MPV 10.7 fL fL (8.7-11.7) Neut % (Auto) 67.7 % % (39.3-74.2) Lymph % (Auto) 17.8 % % (15.0-45.0) [place] % (Auto) 9.9 % % (4.5-13.0) Eos % (Auto) 2.3 % % (0.6-7.6) Baso % (Auto) 1.6 % % (0.3-1.7) Nucleat RBC Rel Count 0.0 % % (0.0-0.2) Absolute Neuts (auto) 11.29 10^3/uL H 10^3/uL (1.70-6.50) Absolute Lymphs (auto) 2.97 10^3/uL 10^3/uL (1.00-3.00) Absolute Monos (auto) 1.65 10^3/uL H 10^3/uL (0.30-0.80) Absolute Eos (auto) 0.38 10^3/uL 10^3/uL (0.03-0.40) Absolute Basos (auto) 0.27 10^3/uL H 10^3/uL (0.02-0.10) Absolute Nucleated RBC 0.00 10^3/uL 10^3/uL (0-0.01) Immature Gran % 0.7 % % (0.0-1.1) Immature Gran # 0.12 10^3/uL H 10^3/uL (0.00-0.10) RBC/WBC/PLT Morphology TNP Platelet Estimate INCREASED H (ADEQ) Large Platelets PRESENT H Giant Platelets PRESENT H Bizarre Platelets PRESENT H Polychromasia 1+ H Microcytic Cells 1+ H Target Cells 1+ H Oval Macrocytes 1+ H PT 19.6 SEC H SEC (12.0-15.0) INR 1.65 H (0.83-1.16) APTT 37.9 SEC SEC (23.0-38.0) Sodium Potassium Chloride Carbon Dioxide Anion Gap BUN Creatinine Estimated GFR Glucose Calcium Phosphorus POC Troponin I 0.00 ng/mL ng/mL (0.00-0.08) 07/10/18 07/10/18 07/10/18 15:10 15:10 15:10 WBC REJ RBC [employer]PER[employer]OR ROLL[employer] Hgb SUPERVISOR ROLL[employer]OP Hct SUPERVISOR [employer]LL[employer] MCV SUPER[employer] MCH [employer]PER[employer] MCHC [employer] RDW SUPER[employer] Plt Count SUPER[employer] MPV SUPERVISOR [employer] Neut % (Auto) Not Reported Lymph % (Auto) Not Reported [place] % (Auto) Not Reported Eos % (Auto) Not Reported Baso % (Auto) Not Reported Nucleat RBC Rel Count Not Reported Absolute Neuts (auto) Not Reported Absolute Lymphs (auto) Not Reported Absolute Monos (auto) Not Reported Absolute Eos (auto) Not Reported Absolute Basos (auto) Not Reported Absolute Nucleated RBC Not Reported Immature Gran % Not Reported Immature Gran # Not Reported RBC/WBC/PLT Morphology Platelet Estimate Not Reported Large Platelets Giant Platelets Bizarre Platelets Polychromasia Microcytic Cells Target Cells Oval Macrocytes PT REJ INR REJ APTT Sodium 142 mEq/L mEq/L (135-145) Potassium 4.8 mEq/L mEq/L (3.3-5.0) Chloride 109 mEq/L mEq/L (97-110) Carbon Dioxide 21 mEq/l L mEq/l (22-31) Anion Gap 12 mEq/L mEq/L (6-14) BUN 21 mg/dL mg/dL (7-23) Creatinine 0.9 mg/dL mg/dL (0.7-1.3) Estimated GFR > 60 Glucose 91 mg/dL mg/dL (70-100) Calcium 11.0 mg/dL H mg/dL (8.5-10.4) Phosphorus 3.0 mg/dL mg/dL (2.5-4.5) POC Troponin I Medications Given: Hydromorphone HCl (Dilaudid) 0.2 - 0.4 mg IVP Q4HRS PRN PRN Reason: Pain, Severe Unable to Take PO Stop: 07/20/18 18:13 Last Admin: 07/10/18 20:05 Dose: 0.4 mg Discontinued Medications Hydrocodone Bitart/Acetaminophen ([place] 5/325) 2 tab PO EDNOW ONE Stop: 07/10/18 14:55 Last Admin: 07/10/18 15:14 Dose: 2 tab Fentanyl (Sublimaze) 50 mcg IVP EDNOW ONE Stop: 07/10/18 14:56 Last Admin: 07/10/18 15:14 Dose: 50 mcg Heparin Sodium (Porcine) (Heparin Injection) 0 unit IVP EDNOW ONE Stop: 07/10/18 17:59 Last Admin: 07/10/18 18:14 Dose: 5,900 units Hydromorphone HCl (Dilaudid) 0.5 mg IVP EDNOW ONE Stop: 07/10/18 18:13 Last Admin: 07/10/18 18:30 Dose: 0.5 mg Heparin Sodium (Porcine) (Heparin 50 Units/Ml (Premix)) 500 mls @ 0 mls/hr IV EDNOW ONE; Per Protocol PRN Reason: Protocol Stop: 07/10/18 17:59 Last Admin: 07/10/18 18:15 Dose: 500 mls Ondansetron HCl (Zofran) 4 mg IVP EDNOW ONE Stop: 07/10/18 18:13 Last Admin: 07/10/18 18:31 Dose: 4 mg Point of Care Test Results: Chemistry 07/10/18 15:14 POC Troponin I 0.00 ng/mL ng/mL (0.00-0.08) Departure <Jim Tripp - Last Filed: 07/10/18 17:21> <Zoë Rowell - Last Filed: 07/10/18 21:03> - Departure Disposition: [facility] Acute Clinical Impression: Arterial occlusion Condition: Serious
[2018-07-10] MEDS ORDERED: IOPAMIDOL (ISOVUE 370) 100 ML BTL IV ONE (16:18)
[2018-07-10 17:30] LABS: PLATELET COUNT 760 10^3/uL (150-400)
[2018-07-10 17:40] LABS: INR 1.65 (0.83-1.16); PROTIME(PATIENT) 19.6 SEC (12.0-15.0)
[2018-07-10] MEDS ORDERED: HEPARIN 10,000 UNIT/10 ML MDV (1,000 UNIT/ML) IVP ONE (17:58)
[2018-07-10] MEDS ORDERED: HEPARIN/DEXTROSE 500 ML IV ONE (17:58)
[2018-07-10] MEDS ORDERED: HYDROmorphONE/DILAUDID 2 MG/ML INJ IVP ONE (18:12)
[2018-07-10] MEDS ORDERED: ONDANSETRON 4 MG/2 ML VIAL IVP ONE (18:12)
[2018-07-10] MEDS ORDERED: ACETAMINOPHEN 325 MG TAB PO PRN (18:14)
[2018-07-10] MEDS ORDERED: ONDANSETRON DISINTEGRATING 4 MG TAB PO PRN (18:14)
[2018-07-10] MEDS ORDERED: ONDANSETRON 4 MG/2 ML VIAL IVP PRN (18:14)
[2018-07-10] MEDS ORDERED: HEPARIN 10,000 UNIT/10 ML MDV (1,000 UNIT/ML) IVP PRN (18:16)
[2018-07-10 18:46] LABS: INR 1.57 (0.83-1.16); PROTIME(PATIENT) 18.9 SEC (12.0-15.0)
--- NOTE | 2018-07-10 19:38 | PDGENHP ---
History and Physical - Chief Complaint Right foot pain/infection - History of Present Illness 68 y/o male, who for the past month has been working with primary and wound care in regards to his chronic right foot ulcers, presents to the ED by [facility] for worsening right foot pain, loss of sensation to the inner aspect of the foot and a cold sensation to the foot. No pulse by Doppler. CT angiogram reveals a right SFA occlusion. Past Medical/Surgical History 1. A-fib (Warfarin) 2. CVA with hemiparesis 3. HTN 4. Polycythemia vera (working with [facility]) 5. Chronic right foot ulcers 6. Asthma 7. Chronic Hep C 8. PVD Social: Denies alcohol or cigarettes, smokes cannabis History Information - Allergies/Home Medication List Allergies/Adverse Reactions: No Known Allergies Allergy (Verified 07/10/18 13:25) Home Medications: Albuterol [Proventil Inhaler HFA (*)] 1 - 2 puffs IH DAILY PRN 12/22/16 [Last Taken Unknown] Atorvastatin Calcium [Lipitor 40 mg (*)] 40 mg PO DAILY 12/22/16 [Last Taken ] amLODIPine BESYLATE [Norvasc 5 mg (*)] 5 mg PO DAILY 12/22/16 [Last Taken ] Ibuprofen [Ibuprofen] 800 mg PO TIDMEAL 07/10/18 [Last Taken 07/10/18 09:00] Lisinopril/Hctz 20/12.5MG [Zestoretic/Prinzide 20/12.5MG (*)] 1 tab PO DAILY [Last Taken 07/10/18] Pregabalin [Lyrica 75mg (*)] 75 mg PO BID 07/10/18 [Last Taken 07/10/18 09:00] Warfarin Sodium [Coumadin 5MG (*)] 2.5 mg PO SUMOWEFR@19 07/10/18 [Last Taken ] Warfarin Sodium [Coumadin 5MG (*)] 5 mg PO TUTHSA@19 07/10/18 [Last Taken ] I have personally reviewed and updated: family history, medical history, social history, surgical history Past Medical History: See HPI List - Surgical History Additional surgical history: See HPI list - Family History Positive for: non-pertinent - Social History Smoking Status: Never smoked Alcohol Use: None Drug Use: Marijuana (Smokes) Review of Systems Review of Systems: ROS: 10pt was reviewed & negative except for what was stated in HPI & below Constitutional: Reports: other (Pain) EENMT: Reports: no symptoms Cardiac: Reports: no symptoms Respiratory: Reports: no symptoms Gastrointestinal: Reports: no symptoms Genitourinary: Reports: no symptoms Muscolosketal: Reports: no symptoms Skin: Reports: lesions (Right foot) Neurological: Reports: pre-existing deficit Hematologic/Lymphatic: Reports: other (Polycythemia vera) Immunologic/Allergy: Reports: no symptoms Physical Exam Physical Exam: Temp Pulse Resp BP Pulse Ox 36.9 C 69 18 162/107 H 98 07/10/18 16:54 07/10/18 18:32 07/10/18 18:32 07/10/18 18:32 07/10/18 18:32 O2 (L/minute) 6 Constitutional: appears nourished, uncomfortable Eyes: PERRL, anicteric sclera, EOMI Ears, Nose, Mouth, Throat: moist mucous membranes, hearing normal, ears appear normal, no oral mucosal ulcers Cardiovascular: regular rate and rhythym, no murmur, rub, or gallop, No edema Peripheral Pulses: 0: dorsalis-pedis (R) (Femoral pulse 2+, Radial 2+), 2+: dorsalis-pedis (L) (Radial 2+) Respiratory: no respiratory distress, no rales or rhonchi, clear to auscultation Gastrointestinal: normoactive bowel sounds, soft, non-tender abdomen, no palpable masses Genitourinary: no bladder fullness, no bladder tenderness Skin: warm, erythema, other (Right foot skin lesions noted; eschar wounds. Foot was warm to the touch, no sensation to touch per pt.) Musculoskeletal: full muscle strength, no muscle tenderness, normal joint ROM, no joint effusions Neurologic: AAOx3, numbness (RLE), CN II-XII Intact Psychiatric: interacting appropriately, not anxious, not encephalopathic, thought process linear Lymph, Heme, Immunologic: no cervical LAD, no supraclavicular LAD Lab Data & Imaging Review 07/10/18 16:50 07/10/18 15:10 WBC 16.67 10^3/uL (3.80-9.50) H 07/10/18 16:50 RBC 7.45 10^6/uL (4.40-6.38) H 07/10/18 16:50 Hgb 17.9 g/dL (13.7-17.5) H 07/10/18 16:50 Hct 54.1 % (40.0-51.0) H 07/10/18 16:50 MCV 72.6 fL (81.5-99.8) L 07/10/18 16:50 MCH 24.0 pg (27.9-34.1) L 07/10/18 16:50 MCHC 33.1 g/dL (32.4-36.7) 07/10/18 16:50 RDW 21.2 % (11.5-15.2) H 07/10/18 16:50 Plt Count 760 10^3/uL (150-400) H 07/10/18 16:50 MPV 10.7 fL (8.7-11.7) 07/10/18 16:50 Neut % (Auto) 67.7 % (39.3-74.2) 07/10/18 16:50 Lymph % (Auto) 17.8 % (15.0-45.0) 07/10/18 16:50 [place] % (Auto) 9.9 % (4.5-13.0) 07/10/18 16:50 Eos % (Auto) 2.3 % (0.6-7.6) 07/10/18 16:50 Baso % (Auto) 1.6 % (0.3-1.7) 07/10/18 16:50 Nucleat RBC Rel Count 0.0 % (0.0-0.2) 07/10/18 16:50 Absolute Neuts (auto) 11.29 10^3/uL (1.70-6.50) H 07/10/18 16:50 Absolute Lymphs (auto) 2.97 10^3/uL (1.00-3.00) 07/10/18 16:50 Absolute Monos (auto) 1.65 10^3/uL (0.30-0.80) H 07/10/18 16:50 Absolute Eos (auto) 0.38 10^3/uL (0.03-0.40) 07/10/18 16:50 Absolute Basos (auto) 0.27 10^3/uL (0.02-0.10) H 07/10/18 16:50 Absolute Nucleated RBC 0.00 10^3/uL (0-0.01) 07/10/18 16:50 Immature Gran % 0.7 % (0.0-1.1) 07/10/18 16:50 Immature Gran # 0.12 10^3/uL (0.00-0.10) H 07/10/18 16:50 RBC/WBC/PLT Morphology TNP 07/10/18 16:50 Platelet Estimate INCREASED (ADEQ) H 07/10/18 16:50 Large Platelets PRESENT H 07/10/18 16:50 Giant Platelets PRESENT H 07/10/18 16:50 Bizarre Platelets PRESENT H 07/10/18 16:50 Polychromasia 1+ H 07/10/18 16:50 Microcytic Cells 1+ H 07/10/18 16:50 Target Cells 1+ H 07/10/18 16:50 Oval Macrocytes 1+ H 07/10/18 16:50 PT 18.9 SEC (12.0-15.0) H 07/10/18 18:15 INR 1.57 (0.83-1.16) H 07/10/18 18:15 APTT 37.9 SEC (23.0-38.0) 07/10/18 18:15 Sodium 142 mEq/L (135-145) 07/10/18 15:10 Potassium 4.8 mEq/L (3.3-5.0) 07/10/18 15:10 Chloride 109 mEq/L (97-110) 07/10/18 15:10 Carbon Dioxide 21 mEq/l (22-31) L 07/10/18 15:10 Anion Gap 12 mEq/L (6-14) 07/10/18 15:10 BUN 21 mg/dL (7-23) 07/10/18 15:10 Creatinine 0.9 mg/dL (0.7-1.3) 07/10/18 15:10 Estimated GFR > 60 07/10/18 15:10 Glucose 91 mg/dL (70-100) 07/10/18 15:10 Calcium 11.0 mg/dL (8.5-10.4) H 07/10/18 15:10 Phosphorus 3.0 mg/dL (2.5-4.5) 07/10/18 15:10 POC Troponin I 0.00 ng/mL (0.00-0.08) 07/10/18 15:14 Assessment & Plan Plan: 68 y/o male, who for the past month has been working with primary and wound care in regards to his chronic right foot ulcers, presents to the ED by [facility] for worsening right foot pain, loss of sensation to the inner aspect of the foot and a cold sensation to the foot. No pulse by Doppler. CT angiogram reveals a right SFA occlusion. 1. R SFA occlusion -Dr. Mic Zaldivar consulted and aware; does not believe surgery is warranted at this time. RLE is warm and pulse ox on right hallux is 95%. Recommended for pt to walk, increasing his distance 5 ft each time. -IV Heparin drip started; possibly transition to Lovenox SubQ or PO anti-coag tomorrow -Cilostazol started -Manage pain with PO/IV 2. Right Foot wounds -Wound consult 3. HTN: continue home medications. 4. A-Fib: continue to monitor. Holding warfarin since on hep drip. May transition to warfarin once off hep drip. 5. Asthma: continue home medications Diet: Regular VTE ppx: Heparin Code: Full Dispo: Admit to inpatient
--- NOTE | 2018-07-10 19:45 | HOSPPROG ---
Hospitalist Progress Note Assessment/Plan: I have seen and evaluated patient independently and agree with plan outlined by Keke LAMB. Objective: Vital Signs Temp Pulse Resp BP Pulse Ox 36.9 C 93 18 168/113 H 96 07/10/18 16:54 07/10/18 19:36 07/10/18 19:36 07/10/18 19:36 07/10/18 19:36 PT 18.9 SEC (12.0-15.0) H 07/10/18 18:15 INR 1.57 (0.83-1.16) H 07/10/18 18:15 ICD10 Worksheet Patient Problems: Problems Problem Status Onset Acute retention of urine Acute
[2018-07-10] MEDS ORDERED: ALBUTEROL 60 PUFFS/8 GM MDI IH PRN (20:01)
[2018-07-10] MEDS: HYDROmorphONE/DILAUDID 1 MG/ML INJ IVP PRN (20:05)
--- NOTE | 2018-07-10 21:35 | GCON ---
REASON FOR CONSULTATION: Abnormal arterial runoff with focal ulcers, right foot. HISTORY: The patient is a 68-year-old male who complains of foot pain for the past month. It became somewhat worse in the last week. He has been seeing his family doctor, Dr. Cathy Ying, and a assistant professor of biochemistry. He has hard eschar approximately 4 mm in diameter on the lateral tip of his 5th digit, and approximately 3 mm similar change at the MTP joint laterally on the 5th digit. There is an approximately 2 x 10 area on the lateral aspect of his calcaneus, and a second smaller 1 more medially. He states that he is able to sleep through the night, though occasionally rolls onto his stomach. He does not report getting up and sitting at the side of the bed because of pain or stamping his feet (no rest pain). He is able to walk approximately 10 feet before pain interruption. He then stops, and then proceeds again. He has a history of atrial fibrillation and a CVA ( 10 years ago). He is currently on Coumadin because of the CVA. Note is made he is currently subtherapeutic. He has no history of myocardial infarction. He is a nonsmoker. He currently does not drink. His father had a CVA at age 55. He is not a diabetic. When seen in the ER, he had a CAT scan with runoff which shows that he has 3 right renal arteries, the inferior of which has a 95% stenosis. There is some cortical atrophy in the right kidney. There are some atherosclerotic changes and soft plaque in the aorta. There is approximately 50% stenosis of the proximal right common iliac artery. He has a complete occlusion of his right SFA. The profunda femoris artery is intact. There is reconstruction below the knee of his anterior tibial. There is a wispy presence of both the peroneal and the posterior tibial below the knee. There is no muscle atrophy. In the left leg, which is not currently a problem for him, in the mid SFA there are 2 areas of narrowing. There is an area of muscle atrophy in the left gastroc. PAST MEDICAL HISTORY: He has no known drug allergies. He does not drink. 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 CURRENT MEDICATIONS: Include amlodipine, lisinopril, another blood pressure medication. He uses an inhaler 2 puffs twice a day for asthma. He is chronically on Coumadin and Lyrica. 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 He had a bone marrow examination 3 weeks ago. He has been treated for melanoma in the past. He has had a "GreenLight" ablation of his prostate. There is no history of rheumatic fever or tuberculosis. He did develop hepatitis C after his heroin use, but he has been on Harvoni and is thought to be in remission. He did have, because of his polycythemia vera, a phlebotomy of 1 pint of blood last week. REVIEW OF SYSTEMS: He only has 2 lower teeth. He has upper and lower dentures , but does not use them. He does have asthma. He has a history of a kidney stone 20 years ago. ROS otherwise negative. PHYSICAL EXAMINATION: GENERAL: He is awake, alert, and quite pleasant. VITAL SIGNS: When on oxygen, his toe has a saturation of 95%. HEENT: His skull is normocephalic. He is missing all teeth except for the 2 lower teeth, which appear to be canines. NECK: I do not detect any carotid bruits. LUNGS: Clear to auscultation. Specifically, there is no wheezing. CARDIAC: Exam at this point shows a regular rate and rhythm. ABDOMEN: Soft, nontender, with normoactive bowel sounds. EXTREMITIES: Bilaterally, there are 2+ femoral pulses. As mentioned before, the left leg is not tender for him, he presented for pain in his right lower extremity, and currently does not bother him. As mentioned, the capillary refill is approximately 2 seconds. The foot is warm and pink. IMPRESSION: I feel we do not have a critically-threatened extremity at this time but rather claudication with possible embolic issues. Certainly, his right leg issue is a chronic one. Whether there is a critical stenosis that has resulted in total occlusion of his superficial femoral artery is probable. The stenosis at the proximal common iliac is 50% should not be necessarily hemodynamically compromising. A dilatation and a stent graft in his aorta to prevent any of these soft clots from breaking off would be a possibility. A femoral-popliteal bypass graft is a possibility, but I do not believe either are necessary at this time. I do recommend that we keep him on supplemental oxygen to keep the saturations up in his toe, that we treat the toe wounds with an agent which can penetrate intact eschar such as Bactroban or Sulfamylon. I do recommend we start him on rheologic agents and gauge his progress. We certainly can proceed to other interventions as they become necessary, but I certainly would recommend that we start him on a walking regimen of walking to the point of pain then 5 more steps , stopping, turning around and repeating the exercise at least twice a day. This should help him with auto revascularization. /[id number]/MODL MTDD
[2018-07-10] MEDS: PREGABALIN 75 MG CAP PO SCH (22:06)
[2018-07-10] MEDS: CILOSTAZOL 100 MG TAB PO SCH (22:06)
[2018-07-11] MEDS: HYDROmorphONE/DILAUDID 1 MG/ML INJ IVP PRN (05:50)
[2018-07-11 09:11] LABS: PLATELET COUNT 764 10^3/uL (150-400)
[2018-07-11] MEDS: PREGABALIN 75 MG CAP PO SCH ×2 (09:33→20:29)
[2018-07-11] MEDS: amLODIPine BESYLATE 5 MG TAB PO SCH (09:34)
[2018-07-11] MEDS: LISINOPRIL/HCTZ 20/12.5MG 1 EA TAB PO SCH (09:34)
[2018-07-11] MEDS: CILOSTAZOL 100 MG TAB PO SCH ×2 (09:34→22:40)
[2018-07-11] MEDS: ATORVASTATIN CALCIUM 40 MG TAB PO SCH (09:34)
--- NOTE | 2018-07-11 09:58 | PDMN ---
Medical Necessity Medical necessity: Pt meets IP criteria as of 07/10/2018 per and [facility] ( Vascular Disease). est los > 2 mn for ongoing tx and management of R SFA occlusion causing wounds with eschar to R foot; requiring heparin gtt, wound consult, therapies; comorbids PVD, HTN, CVA, A-fib, asthma, chronic hep C, polycythemia vera.
[2018-07-11] MEDS: HEPARIN/DEXTROSE 500 ML IV SCH (12:48)
[2018-07-11] MEDS: oxyCODONE IR 5 MG TAB PO PRN ×3 (12:58→20:29)
--- NOTE | 2018-07-11 13:17 | HOSPPROG ---
Hospitalist Progress Note Assessment/Plan: Rt SFA occlusion - discussed with surg and IR. Dr. Zaldivar advises against catheter directed thrombolysis given no resting pain and no current e/o ischemic limb. In addition, occlusive thrombus seems sub-acute, possibly chronic. -Cont heparin drip. Given no plans for intervention at this time, will resume coumadin and d/c heparin when INR near therapeutic -Cont Pletal -Manage pain with PO/IV Infrarenal abdominal aortic plaque/thrombus - consider outpt elective stenting to prevent further source of embolic phenomenon. Discussed with IR. L SFA mod - severe stenosis - again, outpt elective angioplasty is an option Right Foot wounds -cont wound care HTN: continue Norvasc, lisinopril / hctz A-Fib: Sinus on arrival, not on AV elisa blockers -resume warfarin, d/c heparin drip when INR near therapeutic Asthma: no e/o exacerbation -cont home meds PCV: received phlebotomy last week, hgb now >18.5 -with occlusive vascular disease, will proceed with therapeutic phlebotomy -recheck in am Diet: Regular VTE ppx: Heparin Code: Full Dispo: Change to inpt for ongoing management of occlusive vascular disease Subjective: Pt feels ok, denies LE pain. No fevers/chills. No CP or SOB. Objective: Vital Signs Temp Pulse Resp BP Pulse Ox 36.9 C 62 16 138/89 H 96 07/10/18 16:54 07/11/18 10:25 07/10/18 21:26 07/11/18 10:25 07/11/18 10:25 Laboratory Results 07/11/18 09:00 07/10/18 07/11/18 07/12/18 05:59 05:59 05:59 Intake Total 385 120 Output Total 350 50 Balance 35 70 PT 18.9 SEC (12.0-15.0) H 07/10/18 18:15 INR 1.57 (0.83-1.16) H 07/10/18 18:15 - Physical Exam Constitutional: no apparent distress Eyes: PERRL Ears, Nose, Mouth, Throat: moist mucous membranes Cardiovascular: regular rate and rhythym Respiratory: no respiratory distress, clear to auscultation Gastrointestinal: normoactive bowel sounds, soft, non-tender abdomen Skin: warm Musculoskeletal: full muscle strength, other (RLE with no palpable pulses distally, toe and heel ulcers with black eschar) Neurologic: AAOx3 Psychiatric: interacting appropriately ICD10 Worksheet Patient Problems: Problems Problem Status Onset Arterial occlusion Acute Acute retention of urine Acute
--- NOTE | 2018-07-11 13:49 | WOCRNPDOC ---
SYD Advanced Assessment Note - Skin Integrity Problem, Advanced Assess Right Lateral Heel Dressing Type: Open to Air Exudate Amount: None Wound Bed Constitution: Stable Eschar (100%) Site Measurement - Head-to-Toe Length X Width X Depth (cm): 2x1.8xeschar Pressure Injury Stage: Unstageable Pressure Injury Present on Admit: Yes Skin Integrity Problem Comment: This wound along with the other wounds on his foot are likely mixed etiology from pressure/ischemia due to significantly reduced blood flow. The lack of blood flow to the foot makes it extremely vulnerable to pressure injuries. This wound will be categorized as an unstagable pressure injury. It is at least a few months old. No sign of infection except there is pain and some erythema yeison wound, however erythema is only to 2-3 cm and is light pink. May be painful from ischemia rather than infection. Wound care will follow all wounds. Shu HOBBS in room for evaluation. Right Medial Heel Dressing Type: Open to Air Exudate Amount: None Wound Bed Constitution: Red/[place] - Non Granular Tissue (100%), Scab Site Measurement - Head-to-Toe Length X Width X Depth (cm): 0.9x0.4x0.2 Skin Integrity Problem Comment: Fissure in heel. Right Fifth Toe Dressing Type: Open to Air Exudate Amount: None Wound Bed Constitution: Stable Eschar (100%) Site Measurement - Head-to-Toe Length X Width X Depth (cm): 0.7x1.5xeschar Skin Integrity Problem Comment: Likely arterial ulcer. Do not moisten wound bed. Will paint with betadine. 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 Partial thickness. No sign of infection. Wound care will follow. Right Lateral Foot Dressing Type: Open to Air Exudate Amount: None Yeison Wound Tissue: Erythema (minimal yeison wound only), Painful/Tender Wound Bed Constitution: Stable Eschar (100%) Site Measurement - Head-to-Toe Length X Width X Depth (cm): 0.5x0.7xscab Pressure Injury Stage: Unstageable Pressure Injury Present on Admit: Yes Skin Integrity Problem Comment: Wound on lateral 5th metatarsal head. Unknown cause but may be from shoes. Older wound of at least a month or two. Patient reports it is painful to pressure.
[2018-07-11] MEDS ORDERED: NS 250 ML IV ONE (15:28)
[2018-07-11] MEDS ORDERED: WARFARIN SODIUM 5 MG TAB PO ONE (16:00)
--- NOTE | 2018-07-11 16:15 | ASMTCMCOM ---
CM Note CM Note Notes: Pt admitted for arterial occlusion and rt lower extremity vascular ulcers. Pt lives alone in an apartment and states he has friends who are helpful. Pt is current with [facility] and [facility] who support him in the home. PT is recommending SNF v [facility] and pt is refusing SNF. [facility] contacted, cannot accept him before Monday as he will need an RN for wound care, so referrals sent to other agencies as well. Deena Johnson at [facility] notified via email. D/C Plan: [facility] RN/PT/OT Date Signed: 07/11/2018 04:14 PM Electronically Signed By:Gosia Thompson
[2018-07-12 06:06] LABS: INR 1.85 (0.83-1.16); PROTIME(PATIENT) 21.4 SEC (12.0-15.0)
[2018-07-12] MEDS: oxyCODONE IR 5 MG TAB PO PRN ×3 (10:10→20:41)
[2018-07-12] MEDS: ATORVASTATIN CALCIUM 40 MG TAB PO SCH (10:11)
[2018-07-12] MEDS: amLODIPine BESYLATE 5 MG TAB PO SCH (10:11)
[2018-07-12] MEDS: PREGABALIN 75 MG CAP PO SCH ×2 (10:11→20:41)
[2018-07-12] MEDS: LISINOPRIL/HCTZ 20/12.5MG 1 EA TAB PO SCH (10:11)
[2018-07-12] MEDS: CILOSTAZOL 100 MG TAB PO SCH ×2 (11:32→20:55)
[2018-07-12] MEDS: HEPARIN/DEXTROSE 500 ML IV SCH (12:41)
[2018-07-12] MEDS ORDERED: HYDROmorphONE/DILAUDID 1 MG/ML INJ IVP PRN ×2 (12:43→12:53)
[2018-07-12] MEDS: traMADol 50 MG TAB PO PRN (13:15)
--- NOTE | 2018-07-12 15:25 | HOSPPROG ---
Hospitalist Progress Note Assessment/Plan: Rt SFA occlusion - discussed with surg and IR. Dr. Zaldivar advises against catheter directed thrombolysis given no resting pain and no current e/o ischemic limb. In addition, occlusive thrombus seems sub-acute, possibly chronic. -Cont heparin drip. Given no plans for intervention at this time, will resume coumadin and d/c heparin when INR near therapeutic, 1.85 today, goal 2-3 -Cont Pletal -Manage pain with PO/IV Infrarenal abdominal aortic plaque/thrombus - consider outpt elective stenting to prevent further source of embolic phenomenon. Discussed with IR. L SFA mod - severe stenosis - again, outpt elective angioplasty is an option Right Foot wounds -cont wound care HTN: continue Norvasc, lisinopril / hctz A-Fib: Sinus on arrival, not on AV elisa blockers -resume warfarin, d/c heparin drip when INR near therapeutic Asthma: no e/o exacerbation -cont home meds PCV: received phlebotomy last week, hgb now >18.5 -with occlusive vascular disease, s/p therapeutic phlebotomy -repeat 17.4 this AM Diet: Regular VTE ppx: Heparin Code: Full Dispo: Pending clinical course Subjective: Patient reports foot pain this morning Objective: Vital Signs Temp Pulse Resp BP Pulse Ox 36.9 C 77 18 124/74 H 92 07/12/18 11:57 07/12/18 11:57 07/12/18 11:57 07/12/18 11:57 07/12/18 11:57 Laboratory Results 07/12/18 05:19 07/11/18 07/12/18 07/13/18 05:59 05:59 05:59 Intake Total 385 1113 Output Total 350 650 350 Balance 35 463 -350 PT 21.4 SEC (12.0-15.0) H 07/12/18 05:19 INR 1.85 (0.83-1.16) H 07/12/18 05:19 - Physical Exam Constitutional: no apparent distress, unkempt Eyes: PERRL Ears, Nose, Mouth, Throat: moist mucous membranes, poor dentition Cardiovascular: regular rate and rhythym Respiratory: no respiratory distress Gastrointestinal: soft, non-tender abdomen Skin: normal color Neurologic: AAOx3 Psychiatric: interacting appropriately ICD10 Worksheet Patient Problems: Problems Problem Status Onset Arterial occlusion Acute Acute retention of urine Acute
[2018-07-12] MEDS ORDERED: WARFARIN SODIUM 5 MG TAB PO ONE (16:00)
[2018-07-13 05:52] LABS: INR 1.96 (0.83-1.16); PROTIME(PATIENT) 22.4 SEC (12.0-15.0)
[2018-07-13 07:57] VITALS: BP 140/76
[2018-07-13] MEDS: ATORVASTATIN CALCIUM 40 MG TAB PO SCH (07:57)
[2018-07-13] MEDS: PREGABALIN 75 MG CAP PO SCH (07:58)
[2018-07-13] MEDS: amLODIPine BESYLATE 5 MG TAB PO SCH (07:58)
[2018-07-13] MEDS: traMADol 50 MG TAB PO PRN (07:58)
[2018-07-13] MEDS: LISINOPRIL/HCTZ 20/12.5MG 1 EA TAB PO SCH (07:58)
[2018-07-13] MEDS ORDERED: LACTULOSE 20 GM/30 ML UDCUP PO PRN (08:15)
[2018-07-13] MEDS ORDERED: MAGNESIUM HYDROXIDE 30 ML UDCUP PO PRN (08:15)
[2018-07-13] MEDS ORDERED: POLYETHYLENE GLYCOL 3350 17 GM PKT PO PRN (08:15)
[2018-07-13] MEDS ORDERED: BISACODYL 10 MG SUPP PR PRN (08:15)
[2018-07-13] MEDS ORDERED: PROTOCOL POTASSIUM 1 DOSE MISC PRN (08:30)
[2018-07-13] MEDS ORDERED: SENNOSIDES/DOCUSATE SODIUM TAB PO SCH (09:00)
--- NOTE | 2018-07-13 09:30 | WOCRNPDOC ---
SYD Advanced Assessment Note - Skin Integrity Problem, Advanced Assess Right Lateral Heel Dressing Type: [place]lev[employer] Life Dressing Description: Clean/Dry, Intact Exudate Amount: Scant Exudate Characteristic(s): Serous Integumentary Issue Intervention: Visualized Under Dressing Wound Bed Constitution: Stable Eschar (100%) Site Measurement - Head-to-Toe Length X Width X Depth (cm): [id number] Pressure Injury Stage: Unstageable Pressure Injury Present on Admit: Yes Skin Integrity Problem Comment: No real change noted to wound. Patient states it is painful. Radha HOBBS informed me that the patient thought he should be resting his heel on the pillow rather than off-loading. Patient had heels offloaded when I went into the room. Wound care will round again next week. Right Medial Heel Dressing Type: Allevyn Life Dressing Description: Clean/Dry, Intact Wound Bed Constitution: Red/[place] - Non Granular Tissue (100%), Scab Site Measurement - Head-to-Toe Length X Width X Depth (cm): 1x0.5x0.2 Skin Integrity Problem Comment: Fissure in heel Right Fifth Toe Dressing Type: Open to Air Exudate Amount: None Wound Bed Constitution: Stable Eschar (100%) Site Measurement - Head-to-Toe Length X Width X Depth (cm): 0.8x1.5xeschar Skin Integrity Problem Comment: Painted with betadine Right Posterior Ankle Dressing Type: [place]lev[employer] Life Dressing Description: Clean/Dry, Intact Exudate Amount: None Integumentary Issue Intervention: Visualized Under Dressing Wound Bed Constitution: Red/[place] - Non Granular Tissue Site Measurement - Head-to-Toe Length X Width X Depth (cm): 0.8x0.8x0.2 Pressure Injury Stage: Stage 2, Sand Bobber Related Pressure Injury Pressure Injury Present on Admit: Yes Right Anterior Ankle Dressing Type: [place] Life Dressing Description: Clean/Dry, Intact Exudate Amount: None Integumentary Issue Intervention: Visualized Under Dressing Wound Bed Constitution: Red/[place] - Non Granular Tissue (100%) Site Measurement - Head-to-Toe Length X Width X Depth (cm): 0.5x1.5x0.1 Pressure Injury Stage: Stage 2 Pressure Injury Present on Admit: Yes Right Lateral Foot Dressing Type: Open to Air Exudate Amount: None Wound Bed Constitution: Stable Eschar (100%) Site Measurement - Head-to-Toe Length X Width X Depth (cm): 0.5x0.5xeschar Pressure Injury Stage: Unstageable Pressure Injury Present on Admit: Yes
[2018-07-13] MEDS ORDERED: POTASSIUM CL 10 MEQ TAB PO ONE (09:55)
[2018-07-13] MEDS: CILOSTAZOL 100 MG TAB PO SCH (10:08)
--- NOTE | 2018-07-13 11:08 | PDIAF ---
- Diagnosis Diagnosis: Peripheral Vascular Disease Code Status: Full Code - Medication Management Discharge Medications: electronically signed and located in the Home Medication List. - Orders Services needed: Registered Nurse, Physical Therapy, Occupational Therapy Additional Instructions: Please follow up within 3- 4 weeks of discharge with outpatient [facility]: You may reach them at [phone] for an appointment and continued management of your wounds. Please call them zane to schedule your appointment as they fill up quickly. If before that time you have any issues, please follow up with your PCP. [place] right lateral heel and lateral foot wound with betadine daily Change dressings to right ankle (anterior and posterior wounds) and right medial heel fissure every 2 days and prn. 1. Clean with ns and gauze 2. Silvasorb gel to wound bed 3. Cover with Allevyn Life gentle either 2x2 or 2x5 (can find in wound cart or from wound RN) Hetal Gauthier CWON - Labs/Radiology PT/INR Date: 07/16/18 - Follow Up Care Current Providers and Referrals: Cathy Ying DO [Primary Care Provider] - As per Instructions
[2018-07-13] MEDS ORDERED: WARFARIN SODIUM 5 MG TAB PO ONE (12:00)
--- NOTE | 2018-07-13 12:07 | ASDISCHSUM ---
Discharge Information Plan Status:Home with Home Health Medically Cleared to Leave:07/12/2018 Discharge Date:07/12/2018 CM D/C Disposition: ADT D/C Disposition: Projected Discharge Date:07/13/2018 11:00 AM Transportation at D/C: Discharge Delay Reason: Follow-Up Date:07/13/2018 11:00 AM Discharge Slot: Final Diagnosis: Placement Information Referral Type:*Home Health Care Services Referral ID:[id number] Provider Name:[facility] ([facility]) Address 1:[address] [facility] Address 2: City:[place] Selection Factors: State:[place] Patient Contact Information Contact Name:MIGUEL Relationship:Son Address: Work Phone: City:[facility] Phone: State/Zip Code:[place] Email: Financial Information Financial Class:Medicare Primary Plan Desc:MEDICARE INPATIENT Primary Plan Number:[id number] Secondary Plan Desc:MED[place] Secondary Plan Number:[id number] Assessment Information [facility] CM Progress Note CM Note CM Note Notes: Pt admitted for arterial occlusion and rt lower extremity vascular ulcers. Pt lives alone in an apartment and states he has friends who are helpful. Pt is current with [facility] and [facility] who support him in the home. PT is recommending SNF v [facility] and pt is refusing SNF. [facility] contacted, cannot accept him before Monday as he will need an RN for wound care, so referrals sent to other agencies as well. Deena Johnson at [facility] notified via email. D/C Plan: [facility] RN/PT/OT Date Signed: 07/11/2018 04:14 PM Electronically Signed By:Gosia Thompson Case Management Discharge Plan Note Case Management Discharge Discharge Order Complete? Answers: Yes Patient to Obtain Answers: via Family Medications Transportation Arranged Answers: Family/Friends EMTALA Complete Answers: No Case Management Transport Answers: No Form Complete Faxed Final Orders Answers: Yes Agency/Facility Transfer Answers: Yes Report Printed & Faxed to Receiving Agency Family Notified Answers: No Discharge Comments Notes: CM spoke to Dr. Urias. Pt is being discharged today. CM notified Becki kincaid/ [facility]. Becki stopped by to speak w/ pt. DC orders sent. CM available for changes. Plan: [facility]; PT, OT, RN Date Signed: 07/13/2018 11:50 AM Electronically Signed By:ADRYAN Bhandari Intervention Information
--- NOTE | 2018-07-13 12:55 | PDDCSUM ---
Discharge Summary Discharge Summary: Date of Admission: 07/10/2018 Date of Discharge: 07/13/2018 Consults: Vascular Surgery, IR Procedures: CTA lower extremities, Duplex U/S LE F/u: PCP, IR Hospital Course problem List: Rt SFA occlusion - discussed with surg and IR. Dr. Zaldivar advises against catheter directed thrombolysis given no resting pain and no current e/o ischemic limb. In addition, occlusive thrombus seems sub-acute, possibly chronic. -Transitioned from Heparin gtt, back to home coumadin, goal INR 2-3 -Cont Pletal, will discharge on -Manage pain with PO Tramadol Infrarenal abdominal aortic plaque/thrombus - consider outpt elective stenting to prevent further source of embolic phenomenon. Discussed with IR. L SFA mod - severe stenosis - again, outpt elective angioplasty is an option Right Foot wounds -cont wound care, ordered home health care upon d/c HTN: continue Norvasc, lisinopril / hctz A-Fib: Sinus on arrival, not on AV elisa blockers -resume warfarin Asthma: no e/o exacerbation -cont home meds PCV: received phlebotomy last week, hgb now >18.5 -with occlusive vascular disease, s/p therapeutic phlebotomy -repeat 17.4 Time spent on d/c was >35 minutes with > 50% of time spent on patient education and counseling.
--- NOTE | 2018-07-13 16:26 | ASMTLACE ---
LACE Length of stay for Answers: 3 days current admission Acuity / Level of Answers: Yes Care: Did the patient have an inpatient admission? Comorbidities - select Answers: Cerebrovascular disease all that apply (CVA, TIA, aneurysms, vasc ular dementia) Peripheral vascular disease Other Notes: HTN; Hep C; AFib # of Emergency department Answers: 1-2 visits in the last 6 months Score: 10 Date Signed: 07/13/2018 04:25 PM Electronically Signed By:ADRYAN Bhandari
== END 2018-07-13 12:24 | disposition home health service (06) | DRG 300 ==
LOC: F2N 19:50 → F3E 07-11 18:35
PROVIDERS: ADMIT Internal Medicine; ATTEND Internal Medicine
DX: I70.203 Unspecified atherosclerosis of native arteries of extremities, bilateral legs (principal); I69.359 Hemiplegia and hemiparesis following cerebral infarction affecting unspecified side; I70.235 Atherosclerosis of native arteries of right leg with ulceration of other part of foot; I70.0 Atherosclerosis of aorta; J45.909 Unspecified asthma, uncomplicated; L89.610 Pressure ulcer of right heel, unstageable; L89.512 Pressure ulcer of right ankle, stage 2; I10 Essential (primary) hypertension; D45 Polycythemia vera; I48.91 Unspecified atrial fibrillation; B18.2 Chronic viral hepatitis C; Z79.01 Long term (current) use of anticoagulants
CPT/HCPCS: 84484-PO; 85520-90; 96374; 97162-GP; G8978-GP-CK; G8979-GP-CJ; J1170; J1644; J2405; J3010; Q9967

== ENCOUNTER → 2018-07-27 | Outpatient (CLI) | payer OTHER, MEDICAID | LOC: FIMAGING 18:52 | PROVIDERS: ATTEND Family Medicine | DX: M79.671 Pain in right foot (principal) ==

== ENCOUNTER 2018-08-13 10:41 | Inpatient (IN) | payer OTHER, MEDICAID ==
[2018-08-13] MEDS ORDERED: FLUMAZENIL 0.5 MG/5 ML MDV IVP PRN (12:36)
[2018-08-13] MEDS ORDERED: PROTAMINE SULFATE 50 MG/5 ML VIAL IVP PRN (12:36)
[2018-08-13] MEDS ORDERED: MEPERIDINE 25 MG/ML SYR IVP PRN (12:36)
[2018-08-13] MEDS ORDERED: HEPARIN 10,000 UNIT/10 ML MDV (1,000 UNIT/ML) IVP PRN (12:36)
[2018-08-13] MEDS ORDERED: ALTEPLASE 2 MG VIAL IVP PRN (12:36)
[2018-08-13] MEDS ORDERED: NALOXONE HCL 0.4 MG/ML INJ IVP PRN (12:36)
[2018-08-13 12:38] LABS: PLATELET COUNT 913 10^3/uL (150-400)
[2018-08-13 13:07] LABS: INR 1.55 (0.83-1.16); PROTIME(PATIENT) 18.7 SEC (12.0-15.0)
[2018-08-13] MEDS: NS 1,000 ML IV SCH (14:20)
[2018-08-13] MEDS: fentaNYL 100 MCG/2 ML INJ IVP PRN (14:21)
[2018-08-13] MEDS: MIDAZOLAM 2 MG/2 ML VIAL IVP PRN (14:21)
[2018-08-13] MEDS ORDERED: MIDAZOLAM 2 MG/2 ML VIAL ONE (14:48)
[2018-08-13] MEDS ORDERED: fentaNYL 100 MCG/2 ML INJ ONE (14:48)
[2018-08-13] MEDS ORDERED: HYDROmorphONE/DILAUDID 1 MG/ML INJ IVP PRN (15:00)
[2018-08-13] MEDS ORDERED: HEPARIN/DEXTROSE 25,000 UNIT/500 ML BAG ONE (15:23)
[2018-08-13] MEDS ORDERED: HYDROmorphONE/DILAUDID 2 MG/ML INJ ONE (15:27)
[2018-08-13] MEDS ORDERED: ALTEPLASE 5 MG in NS 100 ML IV SCH (15:30)
[2018-08-13] MEDS ORDERED: PROMETHAZINE HCL 25 MG/ML INJ IVP PRN (15:50)
--- NOTE | 2018-08-13 16:03 | PDRADPRE ---
Radiology History & Physical Indication for procedure: thromboembolism Home medications: Albuterol [Proventil Inhaler HFA (*)] 1 - 2 puffs IH DAILY PRN 12/22/16 [Last Taken 08/07/18] Atorvastatin Calcium [Lipitor 40 mg (*)] 40 mg PO DAILY 12/22/16 [Last Taken ] amLODIPine BESYLATE [Norvasc 5 mg (*)] 5 mg PO DAILY 12/22/16 [Last Taken ] Ibuprofen 800 mg PO TIDMEAL 07/10/18 [Last Taken 08/09/18] Lisinopril/Hctz 20/12.5MG [Zestoretic/Prinzide 20/12.5MG (*)] 1 tab PO DAILY [Last Taken 08/09/18] Pregabalin [Lyrica 75mg (*)] 75 mg PO BID 07/10/18 [Last Taken 08/09/18] Warfarin Sodium [Coumadin 5MG (*)] 2.5 mg PO SUMOWEFR@19 07/10/18 [Last Taken ] Warfarin Sodium [Coumadin 5MG (*)] 5 mg PO TUTHSA@19 07/10/18 [Last Taken ] Allergies/Adverse Reactions: No Known Allergies Allergy (Verified 07/10/18 13:25) Mental status: A&Ox3
--- NOTE | 2018-08-13 16:03 | PDPROPOC ---
Sedation Plan of Care ASA Classification: ASA 2 Mallampati Score: Class 2 Mallampati Reference Image:
--- NOTE | 2018-08-13 16:04 | PDRADPN ---
Radiology Procedure Note Date of Procedure: 08/13/18 Radiologist: Wallace Russell Anesthesia: IV Sedation Pre-op Diagnosis: SFA occlusion Post-op Diagnosis: same Procedure: Day 1 lysis Finding(s): complete occlusion of SFA with chronic thrombus; lysis catheter extends from CHECK GRADER to popliteal Inf/Abcess present in the surg proc area at time of surgery?: No
[2018-08-13] MEDS ORDERED: ACETAMINOPHEN 325 MG TAB PO PRN (16:08)
[2018-08-13] MEDS ORDERED: ONDANSETRON 4 MG/2 ML VIAL IVP PRN (16:08)
[2018-08-13] MEDS ORDERED: ONDANSETRON DISINTEGRATING 4 MG TAB PO PRN (16:08)
--- NOTE | 2018-08-13 16:11 | PDGENHP ---
History and Physical - Chief Complaint SFA Occlusion - History of Present Illness Doc Zelaya is a 68 yo M with a PMHx of PVD, Asthma, HLD, HTN who presents to [facility] for SFA occlusion. He had lysis of R SFA today by IR and will be receiving tPA. Patient was recently admitted last month for chronic right foot ulcers. CT angiogram at that time revealed a right SFA occlusion. He reports pain in R foot with ambulation. He is currently having 8/10 pain in RLE after procedure today. He was given IV Dilaudid with some improvement in pain. History Information - Allergies/Home Medication List Allergies/Adverse Reactions: No Known Allergies Allergy (Verified 07/10/18 13:25) Home Medications: Albuterol [Proventil Inhaler HFA (*)] 1 - 2 puffs IH DAILY PRN 12/22/16 [Last Taken 08/07/18] Atorvastatin Calcium [Lipitor 40 mg (*)] 40 mg PO DAILY 12/22/16 [Last Taken ] amLODIPine BESYLATE [Norvasc 5 mg (*)] 5 mg PO DAILY 12/22/16 [Last Taken ] Ibuprofen 800 mg PO TIDMEAL PRN 07/10/18 [Last Taken 08/09/18] Lisinopril/Hctz 20/12.5MG [Zestoretic/Prinzide 20/12.5MG (*)] 1 tab PO DAILY [Last Taken 08/13/18] Pregabalin [Lyrica 75mg (*)] 75 mg PO BID 07/10/18 [Last Taken 08/13/18 08:00] Warfarin Sodium [Coumadin 5MG (*)] 2.5 mg PO SUMOWEFR@19 07/10/18 [Last Taken ] Warfarin Sodium [Coumadin 5MG (*)] 5 mg PO TUTHSA@19 07/10/18 [Last Taken ] Hydrocodone/APAP 5/325 [[place] 5/325 (*)] 1 tab PO BID PRN 08/13/18 [Last Taken 08/13/18] I have personally reviewed and updated: family history, medical history, social history, surgical history Past Medical History: See HPI List - Past Medical History hypertension, hyperlipidemia, peripheral artery disease - Surgical History Additional surgical history: See HPI list - Family History Positive for: non-pertinent - Social History Smoking Status: Never smoked Review of Systems Review of Systems: ROS: 10pt was reviewed & negative except for what was stated in HPI & below Physical Exam Physical Exam: Temp Pulse Resp BP Pulse Ox 36.9 C 85 20 179/106 H 95 08/13/18 13:21 18 13:21 08/13/18 13:21 08/13/18 15:48 08/13/18 15:50 Constitutional: no apparent distress Eyes: PERRL Ears, Nose, Mouth, Throat: moist mucous membranes Cardiovascular: regular rate and rhythym Respiratory: no respiratory distress Gastrointestinal: soft, non-tender abdomen Skin: warm Musculoskeletal: pain with ROM Neurologic: AAOx3 Psychiatric: interacting appropriately Lab Data & Imaging Review 08/14/18 06:00 08/14/18 06:00 WBC 14.32 10^3/uL (3.80-9.50) H 08/13/18 12:15 RBC 7.33 10^6/uL (4.40-6.38) H 08/13/18 12:15 Hgb 17.5 g/dL (13.7-17.5) 08/13/18 12:15 Hct 52.7 % (40.0-51.0) H 08/13/18 12:15 MCV 71.9 fL (81.5-99.8) L 08/13/18 12:15 MCH 23.9 pg (27.9-34.1) L 08/13/18 12:15 MCHC 33.2 g/dL (32.4-36.7) 08/13/18 12:15 RDW 21.9 % (11.5-15.2) H 08/13/18 12:15 Plt Count 913 10^3/uL (150-400) H 08/13/18 12:15 MPV 10.5 fL (8.7-11.7) 08/13/18 12:15 Neut % (Auto) 71.2 % (39.3-74.2) 08/13/18 12:15 Lymph % (Auto) 15.0 % (15.0-45.0) 08/13/18 12:15 [place] % (Auto) 8.9 % (4.5-13.0) 08/13/18 12:15 Eos % (Auto) 2.2 % (0.6-7.6) 08/13/18 12:15 Baso % (Auto) 2.0 % (0.3-1.7) H 08/13/18 12:15 Nucleat RBC Rel Count 0.0 % (0.0-0.2) 08/13/18 12:15 Absolute Neuts (auto) 10.18 10^3/uL (1.70-6.50) H 08/13/18 12:15 Absolute Lymphs (auto) 2.15 10^3/uL (1.00-3.00) 08/13/18 12:15 Absolute Monos (auto) 1.28 10^3/uL (0.30-0.80) H 08/13/18 12:15 Absolute Eos (auto) 0.32 10^3/uL (0.03-0.40) 08/13/18 12:15 Absolute Basos (auto) 0.29 10^3/uL (0.02-0.10) H 08/13/18 12:15 Absolute Nucleated RBC 0.00 10^3/uL (0-0.01) 08/13/18 12:15 Immature Gran % 0.7 % (0.0-1.1) 08/13/18 12:15 Immature Gran # 0.10 10^3/uL (0.00-0.10) 08/13/18 12:15 PT 18.7 SEC (12.0-15.0) H 08/13/18 12:15 INR 1.55 (0.83-1.16) H 08/13/18 12:15 APTT 33.4 SEC (23.0-38.0) 08/13/18 12:15 Fibrinogen 346 mg/dL (214-456) 08/13/18 12:15 Creatinine 0.9 mg/dL (0.7-1.3) 08/13/18 12:15 Estimated GFR > 60 08/13/18 12:15 Assessment & Plan Assessment: R SFA occlusion- Acute - S/p Lysis by IR today - Per IR patient will require multiple days of tPA therefore admitted to ICU - IR to manage tPA, f/u their recommendations - Holding home Warfarin on tPA - NPO at midnight per IR - Pain medications PRN PAD - Management of SFA occlusion as above - Continue home meds pending med rec including Gabapentin, Lyrica Right Foot wounds - S/p R SFA lysis as above, followed by [facility] as OP - WBC elevated on admission, will hold off on abx for now - Wound care consulted Hypertensive Urgency - BP elevated on admission, 170/100's - Restart home Norvasc, lisinopril / hctz this evening - PRN Hydralazine for SBP >180 A-Fib - HR WNL, not on home AV elisa blockers - Holding coumadin in setting of tPA as above Asthma - no e/o exacerbation - cont home meds including Albuterol pending med rec PCV - has received phlebotomy in the past - Continue to monitor H/H FEN: Regular, IVF Code: FULL Dispo: Admit to Medicine, pending clinical course
[2018-08-13] MEDS: HYDROCODONE/APAP 5/325 TAB PO PRN ×2 (17:22→21:50)
[2018-08-13] MEDS: LISINOPRIL/HCTZ 20/12.5MG 1 EA TAB PO SCH (17:22)
[2018-08-13] MEDS: DEXMEDETOMIDINE HCL 400 MCG in NS 100 ML IV SCH (18:16)
[2018-08-13] MEDS: HYDROmorphONE/DILAUDID 1 MG/ML INJ IVP PRN (18:16)
[2018-08-13] MEDS: amLODIPine BESYLATE 5 MG TAB PO SCH (18:17)
--- NOTE | 2018-08-13 19:21 | PDMN ---
Medical Necessity Medical necessity: Pt meets IP criteria as of 08/13/2018 per and MCG MG-VAS ( vascular disease GRG); est los > 2 mn for ongoing tx and evaluation of SFA occlusion causing pain as well as wounds to the limb; requiring multiple days of tPA, ICU level care, IR consultation with planned intervention, pain management and wound care.
[2018-08-14 06:51] LABS: PLATELET COUNT 793 10^3/uL (150-400)
[2018-08-14] MEDS: ALTEPLASE 5 MG in NS 100 ML IV SCH ×4 (07:00→19:48)
[2018-08-14] MEDS ORDERED: IOPAMIDOL (ISOVUE-300) 100 ML BTL ONE ×3 (08:42→15:47)
[2018-08-14] MEDS ORDERED: ALBUTEROL 60 PUFFS/8 GM MDI IH PRN (09:11)
--- NOTE | 2018-08-14 09:11 | HOSPPROG ---
Hospitalist Progress Note Assessment/Plan: #SFA occlusion: s/p lysis by IR. Cont heparin gtt #PAD: statin #Chronic right foot wounds: no acute infection. Wound care #Hypertensive urgency: improved with home meds #Permanent a fib: not on rate-control med. On heparin gtt #Asthma: no signs of exacerbation #Polycythemia vera: stable #Diet: resume after IR today #Disp: inpatient admission for lysis, heparin Subjective: pain in right foot Objective: Vital Signs Temp Pulse Resp BP Pulse Ox 36.6 C 67 22 H 123/76 H 93 08/13/18 22:00 08/14/18 06:00 08/14/18 06:00 08/14/18 06:00 08/14/18 06:00 Laboratory Results 08/14/18 06:00 08/14/18 06:00 08/13/18 08/14/18 08/15/18 05:59 05:59 05:59 Intake Total 1946 Output Total 1125 Balance 821 PT 18.7 SEC (12.0-15.0) H 08/13/18 12:15 INR 1.55 (0.83-1.16) H 08/13/18 12:15 - Time Spent With Patient Time Spent with Patient: greater than 35 minutes Time Spent with Patient: Greater than 35 minutes spent on this patients care, greater than 50% of time spent counseling, educating, and coordinating care regarding the above mentioned plan. - Physical Exam Constitutional: unkempt Ears, Nose, Mouth, Throat: poor dentition Cardiovascular: regular rate and rhythym Respiratory: no respiratory distress Gastrointestinal: normoactive bowel sounds Genitourinary: no bladder fullness Skin: other Musculoskeletal: other (right pedal pulse by doppler. Chronic wounds right foot with escar. No cellulitis) Neurologic: AAOx3, CN II-XII Intact Psychiatric: interacting appropriately, flat affect ICD10 Worksheet Patient Problems: Problems Problem Status Onset Acute retention of urine Acute Arterial occlusion Acute
[2018-08-14] MEDS: LISINOPRIL/HCTZ 20/12.5MG 1 EA TAB PO SCH (09:39)
[2018-08-14] MEDS: LORazepam 1 MG TAB PO PRN ×2 (09:39→19:48)
[2018-08-14] MEDS: HYDROmorphONE/DILAUDID 1 MG/ML INJ IVP PRN ×5 (09:39→22:30)
[2018-08-14] MEDS: amLODIPine BESYLATE 5 MG TAB PO SCH (09:40)
--- NOTE | 2018-08-14 09:50 | GCON ---
SHIPPING AND RECEIVING CONSULTATION REASON FOR ADMISSION: Peripheral vascular disease, SFA occlusion, status post localized tPA and lysi s per Interventional Radiology. HISTORY OF PRESENT ILLNESS: The patient is a very pleasant 68-year-old white male with a past medica l history including hypertension, peripheral vascular disease, and asthma. He presented with complai nts of leg pain. He has a history of chronic foot ulcers. CT angio of the lower extremity revealed a right SFA occlusion. He has undergone localized tPA with Interventional Radiology. Currently, he is resting comfortably and only complaining of some leg pain. He denies any cough or production of s putum. There is no chest pain, pleuritic-type chest pain or angina equivalent. There is no fever or night sweats. He is currently resting comfortably. REVIEW OF SYSTEMS: Ten-point review of systems is performed and negative, except for what is listed in HPI. PAST MEDICAL HISTORY: Significant for peripheral vascular disease, asthma, hypertension. ALLERGIES: No known allergies to medications. FAMILY HISTORY: Noncontributory. SOCIAL HISTORY: No history of tobacco use. MEDICATIONS: At home include Coumadin, Lyrica, Zestoretic, ibuprofen, Norvasc, Lipitor, and Proventi l. PHYSICAL EXAM: VITAL SIGNS: Blood pressure is 123/76, pulse 67, respirations 22, temperature 36.6, oxygen saturation 92% on room air. GENERALL he is a thin, but well-developed elderly white male who is resting comfortably, in no acute distress. HEENT: Eyes: PERRL, EOMI. Throat shows no erythema or tonsillar hypertrophy. NECK: Supple. There is no cervical adenopathy. HEART: Regular rate an d rhythm, without murmurs, rubs, or gallops. LUNGS: Diminished breath sounds, but no wheeze. ABDOM EN: Soft, nontender. Bowel sounds are present. EXTREMITIES: No clubbing, cyanosis, or edema. LABORATORIES: White count is 17.3, hemoglobin 16, hematocrit 50, platelet count of 793. Sodium 143, potassium 3.9, chloride 116. CO2 is 19, BUN 17, creatinine 0.7. Glucose is 135. IMPRESSION: 1. Peripheral vascular disease with superficial femoral artery occlusion. 2. History of asthma. 3. History of peripheral vascular disease. 4. Leg pain. RECOMMENDATIONS: 1. Adequate pain control. 2. DVT and PE prophylaxis. 3. Stress ulcer prophylaxis. 4. Continue the majority of his home medications. 5. Continue with Interventional Radiology. /[id number]/MODL
--- NOTE | 2018-08-14 09:56 | ASMTCMCOM ---
CM Note CM Note Notes: 68yo male admitted for Arterial occlusion, Urinary retention. He has a Hx of PVD, Asthma, HLD, HTN. Last month admitted for R foot ulcers. Getting TPA Wound Care to eval, Therapies to eval. Patient lives alone. CM to follow. Date Signed: 08/14/2018 09:55 AM Electronically Signed By:Gaby Boswell LCSW
[2018-08-14] MEDS ORDERED: CILOSTAZOL 100 MG TAB PO SCH (10:00)
[2018-08-14] MEDS: NS 1,000 ML IV SCH ×2 (11:17→17:12)
[2018-08-14] MEDS: HYDROCODONE/APAP 5/325 TAB PO PRN ×2 (12:01→18:46)
[2018-08-14] MEDS ORDERED: FLUMAZENIL 0.5 MG/5 ML MDV IVP ONE (14:39)
[2018-08-14] MEDS ORDERED: fentaNYL 100 MCG/2 ML INJ ONE ×2 (14:39→16:28)
[2018-08-14] MEDS ORDERED: MIDAZOLAM 2 MG/2 ML VIAL ONE ×2 (14:39→16:28)
[2018-08-14] MEDS ORDERED: fentaNYL 100 MCG/2 ML INJ IVP PRN (14:40)
[2018-08-14] MEDS ORDERED: NALOXONE HCL 0.4 MG/ML INJ IVP PRN (14:40)
[2018-08-14] MEDS ORDERED: NALOXONE HCL 0.4 MG/ML INJ ONE (14:40)
[2018-08-14] MEDS ORDERED: FLUMAZENIL 0.5 MG/5 ML MDV IVP PRN (14:40)
[2018-08-14] MEDS ORDERED: MIDAZOLAM 2 MG/2 ML VIAL IVP PRN (14:40)
[2018-08-14] MEDS ORDERED: NS 1,000 ML IV SCH (14:45)
--- NOTE | 2018-08-14 16:27 | WOCRNPDOC ---
SYD Advanced Assessment Note - Skin Integrity Problem, Advanced Assess Right Lateral Heel Dressing Type: Honey Alginate, Telfa, Other Dressing Description: Intact, Shadowed Exudate Amount: Minimal Exudate Color: Reddish/Yellow Exudate Characteristic(s): Serosanguinous Integumentary Issue Intervention: Dressing Changed Yeison Wound Tissue: Macerated, Painful/Tender Wound Bed Color: Brown Wound Bed Constitution: Unstable Eschar Wound Edges: Well Defined Site Measurement - Head-to-Toe Length X Width X Depth (cm): [id number] Pressure Injury Stage: Unstageable Pressure Injury Present on Admit: Yes Skin Integrity Problem Comment: Patient states that he has been [facility] and has a home health extrusion press supervisor a few times a week to change dressings to his foot. Removal of dressings is very painful to the patient. RN Jaime medicated for pain. Once dressing removed, wound bed found to be wet and boggy. Gently mechanical debridement attempted but patient was unable to tolerate. Wound cleaned with NS and gauze and skin prep applied to yeison-wound tissue. I supplied honey gel to the patient for further debridement of the wound but he preferred the Medihoney he uses at home. Covered with Mepilex Border Ag and reinforced with medipore tape. Aside from continued wound care, heel should be elevated on pillows as restrictions allow. If patient is able to tolerate, he may be placed in heel boots. Wound care will round again early next week. This wound previously noted by wound care at this facility to be a pressure injury. Right Fifth Toe Dressing Type: Open to Air Exudate Amount: None Yeison Wound Tissue: Intact Wound Bed Color: Brown Wound Bed Constitution: Stable Eschar (100%) Wound Edges: Attached, Well Defined Site Measurement - Head-to-Toe Length X Width X Depth (cm): 0.9p9epfuafy Skin Integrity Problem Comment: Likely arterial wound, noted present at last admission in June. Continue to paint with betadine BID and keep wound dry. Right Posterior Ankle Dressing Type: Honey Alginate, Telfa, Other Other Dressing Type: medipore tape Dressing Description: Intact, Shadowed Closure Description: Not Approximated Exudate Amount: Minimal Exudate Color: Reddish/Yellow Exudate Characteristic(s): Serosanguinous Integumentary Issue Intervention: Dressing Changed Yeison Wound Tissue: Intact, Thin, Painful/Tender Wound Bed Color: [place] Wound Bed Constitution: Red/[place] - Non Granular Tissue Wound Edges: Attached, Well Defined Site Measurement - Head-to-Toe Length X Width X Depth (cm): 0.8x0.8x0.2 Pressure Injury Stage: Stage 3, Iron Miner Related Pressure Injury Pressure Injury Present on Admit: Yes Skin Integrity Problem Comment: This wound was documented on prior admission in June as a er medical technician related pressure injury related to a dressing. At the time, it was documented as a stage 2 wound. Currently, this is a full thickness wound so, if it originated as a pressure injury, it is now considered a stage 3 wound. Wound cleaned with NS and gauze. Skin prep applied to yeison- wound tissue, Medihoney placed in wound bed, covered with Mepilex Border Ag and reinforced with medipore tape. Wound care will round again early next week. Right Lateral Distal Foot Dressing Type: Open to Air Exudate Amount: None Yeison Wound Tissue: Intact, Dry Wound Bed Color: Brown Wound Bed Constitution: Stable Eschar (100%) Wound Edges: Attached Site Measurement - Head-to-Toe Length X Width X Depth (cm): 0.5x0.5xeschar Pressure Injury Stage: Unstageable Pressure Injury Present on Admit: Yes Skin Integrity Problem Comment: Wound of unknown etiology, but documented on last admission as pressure injury. Wound bed with stable eschar. Will paint with betadine.
[2018-08-14] MEDS ORDERED: ceFAZolin 2 GM/DEXTROSE 100 ML IV ONE (16:30)
[2018-08-14] MEDS ORDERED: NITROGLYCERIN/D5W 50 MG/250 ML BOTTLE IV ONE (16:42)
--- NOTE | 2018-08-14 17:01 | PDRADPN ---
Radiology Procedure Note Date of Procedure: 08/14/18 Radiologist: Indy Webb Anesthesia: IV Sedation Pre-op Diagnosis: TPA LYSIS Post-op Diagnosis: SAME Indication: FOLLOW UP ARTERIAL THROMBOSIS Procedure: LYSIS FOLLOW UP, ANGIOPLASTY, CONTINUED LYSIS Finding(s): RECONSTITUTED ANTERIOR TIBIAL ARTERY ONLY IF CATHETER IS DOWN THE POP. NO ANTEGRADE FLOW FROM SMALL BUSINESS CONSULTANT. NOT MUCH COLLATERALS. CONTINUING TPA IN HOPES OF OPENING MORE COLLATERALS. Inf/Abcess present in the surg proc area at time of surgery?: No
[2018-08-14] MEDS: fentaNYL 100 MCG/2 ML INJ IVP PRN (17:12)
[2018-08-14] MEDS: MIDAZOLAM 2 MG/2 ML VIAL IVP PRN (17:12)
[2018-08-14] MEDS: hydrALAZINE 20 MG/ML VIAL IVP PRN (17:44)
[2018-08-14] MEDS: PREGABALIN 75 MG CAP PO SCH (19:48)
[2018-08-14] MEDS: DEXMEDETOMIDINE HCL 400 MCG in NS 100 ML IV SCH (22:30)
[2018-08-14] MEDS ORDERED: ALTEPLASE 5 MG in NS 100 ML IV SCH (23:30)
[2018-08-15] MEDS: NS 1,000 ML IV SCH ×3 (01:13→21:06)
[2018-08-15] MEDS: DEXMEDETOMIDINE HCL 400 MCG in NS 100 ML IV SCH ×2 (01:13→16:17)
[2018-08-15] MEDS: HYDROmorphONE/DILAUDID 1 MG/ML INJ IVP PRN (03:08)
[2018-08-15] MEDS: LORazepam 1 MG TAB PO PRN ×2 (04:08→18:45)
[2018-08-15] MEDS: HYDROCODONE/APAP 5/325 TAB PO PRN ×3 (04:08→16:03)
[2018-08-15] MEDS ORDERED: HYDROmorphONE/DILAUDID 1 MG/ML INJ IVP PRN (05:21)
[2018-08-15] MEDS ORDERED: ALTEPLASE 5 MG in NS 100 ML IV ONE (06:30)
[2018-08-15] MEDS: HEPARIN/DEXTROSE 500 ML IV SCH ×2 (06:39→14:26)
[2018-08-15] MEDS: amLODIPine BESYLATE 5 MG TAB PO SCH (08:24)
[2018-08-15] MEDS: LISINOPRIL/HCTZ 20/12.5MG 1 EA TAB PO SCH (08:24)
[2018-08-15] MEDS: PREGABALIN 75 MG CAP PO SCH ×2 (08:24→21:04)
[2018-08-15] MEDS: ATORVASTATIN CALCIUM 40 MG TAB PO SCH (08:24)
[2018-08-15] MEDS: ALTEPLASE 5 MG in NS 100 ML IV SCH ×2 (08:24→14:25)
--- NOTE | 2018-08-15 08:46 | PDINTPN ---
Sausage Smoker Progress Note Assessment/Plan: Assessment/plan: * Peripheral vascular disease * SFA occlusion-status post tPA -per interventional Radiology -continue bedrest * Pain-well controlled * History of asthma * Hypertension-well controlled Subjective: Resting comfortably. No current complaints. Pain well tolerated. Objective: Vital Signs Temp Pulse Resp BP Pulse Ox 36.6 C 75 19 120/77 95 08/15/18 04:00 08/15/18 08:00 08/15/18 08:00 08/15/18 08:00 08/15/18 08:00 Laboratory Results 08/14/18 06:00 08/14/18 06:00 08/14/18 08/15/18 08/16/18 05:59 05:59 05:59 Intake Total 1946 3942 Output Total 1125 1250 275 Balance 821 2692 -275 PT 18.7 SEC (12.0-15.0) H 08/13/18 12:15 INR 1.55 (0.83-1.16) H 08/13/18 12:15 - Time Spent With Patient Time Spent With Patient: 35 min of time spent with patient, over 1/2 involved with coordination of care or counseling. Case discussed with nursing Physical Exam - Physical Exam General Appearance: WD/WN, alert, no apparent distress EENT: PERRL/EOMI Neck: non-tender, full range of motion Respiratory: chest non-tender, lungs clear, normal breath sounds Cardiac/Chest: normal peripheral pulses, regular rate, rhythm Abdomen: normal bowel sounds, non-tender, soft Male Genitalia: deferred Rectal: deferred Skin: normal color, warm/dry Extremities: normal inspection Neuro/Psych: no motor/sensory deficits, alert, normal mood/affect, oriented x 3 ICD10 Worksheet Patient Problems: Problems Problem Status Onset Acute retention of urine Acute Arterial occlusion Acute
[2018-08-15] MEDS ORDERED: amLODIPine BESYLATE 5 MG TAB PO SCH (09:00)
--- NOTE | 2018-08-15 10:38 | SOAPPROG ---
SOAP Progress Note Assessment/Plan: Assessment/Plan: 68 Y M c hx PAD, asthma, HTN c painful R leg for several months now s/p angioplasty of R BUSINESS PROCESS COORDINATOR, SFA, popliteal A. c compromised runoff now undergoing TPA lysis. Seen and examined c Dr. Oconnell last evening and this am. Yesterday RLE c cyanotic , cold, and painful c loss of sensation. Today shows some improvement--more pink , more warm, less painful, +sensation but still cannot appreciate any doppler pedal pulses. Dr. Oconnell d/w'ed Dr. Webb. Repeat angiography later today. If runoff is open but limb still symptomatic then could evaluate for revascularization surgery. Patient is at risk for amputation. 08/15/18 10:33 Objective: Vital Signs Temp Pulse Resp BP Pulse Ox 36.6 C 73 25 H 138/76 H 91 L 08/15/18 04:00 08/15/18 10:00 08/15/18 10:00 08/15/18 10:00 08/15/18 10:00 Laboratory Results 08/14/18 06:00 08/14/18 06:00 08/14/18 08/15/18 08/16/18 05:59 05:59 05:59 Intake Total 1946 3942 Output Total 1125 1250 275 Balance 821 2692 -275 PT 18.7 SEC (12.0-15.0) H 08/13/18 12:15 INR 1.55 (0.83-1.16) H 08/13/18 12:15 ICD10 Worksheet Patient Problems: Problems Problem Status Onset Acute retention of urine Acute Arterial occlusion Acute
--- NOTE | 2018-08-15 11:16 | HOSPPROG ---
Hospitalist Progress Note Assessment/Plan: #SFA occlusion: foot warmer, pinker today. Cannot get pulses with doppler. -cont TPA lysis -may need revascularization surgery #PAD: statin #Chronic right foot wounds: no acute infection. Wound care #Hypertensive urgency: normotensive now back on home meds #Permanent a fib: not on rate-control med. On heparin gtt #Asthma: no signs of exacerbation #Polycythemia vera: stable #Diet: resume after IR today #Disp: inpatient admission for lysis, heparin Subjective: less pain today in foot Objective: Vital Signs Temp Pulse Resp BP Pulse Ox 36.6 C 73 25 H 138/76 H 91 L 08/15/18 04:00 08/15/18 10:00 08/15/18 10:00 08/15/18 10:00 08/15/18 10:00 Laboratory Results 08/14/18 06:00 08/14/18 06:00 08/14/18 08/15/18 08/16/18 05:59 05:59 05:59 Intake Total 1946 3942 Output Total 1125 1250 385 Balance 821 2692 -385 PT 18.7 SEC (12.0-15.0) H 08/13/18 12:15 INR 1.55 (0.83-1.16) H 08/13/18 12:15 - Time Spent With Patient Time Spent with Patient: greater than 35 minutes Time Spent with Patient: Greater than 35 minutes spent on this patients care, greater than 50% of time spent counseling, educating, and coordinating care regarding the above mentioned plan. - Physical Exam Constitutional: unkempt Ears, Nose, Mouth, Throat: poor dentition Cardiovascular: irregularly irregular Respiratory: no respiratory distress Gastrointestinal: normoactive bowel sounds Musculoskeletal: other (right foot more pink and warmer today. No palpable pulse. Chronic wound 5th toe, heel.) Neurologic: CN II-XII Intact Psychiatric: interacting appropriately ICD10 Worksheet Patient Problems: Problems Problem Status Onset Acute retention of urine Acute Arterial occlusion Acute
[2018-08-15] MEDS ORDERED: MIDAZOLAM 2 MG/2 ML VIAL IVP PRN (16:17)
[2018-08-15] MEDS ORDERED: fentaNYL 100 MCG/2 ML INJ IVP PRN (16:17)
[2018-08-15] MEDS ORDERED: FLUMAZENIL 0.5 MG/5 ML MDV IVP PRN (16:17)
[2018-08-15] MEDS ORDERED: NALOXONE HCL 0.4 MG/ML INJ IVP PRN (16:17)
[2018-08-15] MEDS ORDERED: NS 1,000 ML IV SCH (16:30)
--- NOTE | 2018-08-15 17:41 | PDRADPN ---
Radiology Procedure Note Date of Procedure: 08/15/18 Radiologist: Jay Guerrero Anesthesia: IV Sedation Pre-op Diagnosis: PAD, RLE SFA-pop-MENDEZ thrombosis Post-op Diagnosis: PAD, RLE SFA-pop-MENDEZ thrombosis Indication: PAD, RLE SFA-pop-MENDEZ thrombosis Procedure: Followup angiogram Finding(s): Orthodox of wide patency of Anterior tibial artery. Multifocal, chronic appearing stenoses throughout SFA and Pop. Discussed with Dr. Oconnell and plan to bypass tomorrow. Resume full heparin anticoagulation now. Inf/Abcess present in the surg proc area at time of surgery?: No EBL: Minimal
[2018-08-15] MEDS ORDERED: HEPARIN 10,000 UNIT/10 ML MDV (1,000 UNIT/ML) IVP PRN (18:07)
[2018-08-16] MEDS: DEXMEDETOMIDINE HCL 400 MCG in NS 100 ML IV SCH ×2 (01:57→22:24)
[2018-08-16] MEDS: NS 1,000 ML IV SCH (06:44)
[2018-08-16] MEDS ORDERED: IOPAMIDOL (ISOVUE-300) 100 ML BTL ONE (08:18)
--- NOTE | 2018-08-16 08:21 | SOAPPROG ---
SOAP Progress Note Assessment/Plan: Assessment: FOOT WARMER BUT STILL PAINFUL ANT TIB VESSEL REASONABLY OPEN RISKS AND OPTIONS FULLY DISCUSSED Plan:FEM-TIB BYPASS/ POSSIBLY WILL NEED FASCIOTOMIES/ WILL SCHEDULE IN AM PROBABLY 08/16/18 08:19 Objective: Vital Signs Temp Pulse Resp BP Pulse Ox 36.6 C 72 21 H 147/76 H 95 08/16/18 04:00 08/16/18 06:00 08/16/18 06:00 08/16/18 06:00 08/16/18 06:00 Laboratory Results 08/16/18 06:15 08/14/18 06:00 08/15/18 08/16/18 08/17/18 05:59 05:59 05:59 Intake Total 3942 3135.7 Output Total 1250 1940 Balance 2692 1195.7 PT 18.7 SEC (12.0-15.0) H 08/13/18 12:15 INR 1.55 (0.83-1.16) H 08/13/18 12:15 ICD10 Worksheet Patient Problems: Problems Problem Status Onset Acute retention of urine Acute Arterial occlusion Acute
--- NOTE | 2018-08-16 08:26 | PDINTPN ---
Keg Raiser Progress Note Assessment/Plan: Assessment/plan: * Peripheral vascular disease * SFA occlusion-status post tPA -to OR tomorrow for fem-pop bypass * Pain-well controlled * History of asthma * Hypertension-well controlled Subjective: Resting comfortably. No complaints. Objective: Vital Signs Temp Pulse Resp BP Pulse Ox 36.6 C 72 21 H 147/76 H 95 08/16/18 04:00 08/16/18 06:00 08/16/18 06:00 08/16/18 06:00 08/16/18 06:00 Laboratory Results 08/16/18 06:15 08/14/18 06:00 08/15/18 08/16/18 08/17/18 05:59 05:59 05:59 Intake Total 3942 3135.7 Output Total 1250 1940 Balance 2692 1195.7 PT 18.7 SEC (12.0-15.0) H 08/13/18 12:15 INR 1.55 (0.83-1.16) H 08/13/18 12:15 - Time Spent With Patient Time Spent With Patient: 35 min of time spent with patient, over 1/2 involved with coordination of care counseling. Case discussed with nursing Physical Exam - Physical Exam General Appearance: alert, no apparent distress, moderate distress EENT: normal ENT inspection Neck: non-tender, full range of motion Respiratory: chest non-tender, lungs clear, normal breath sounds Cardiac/Chest: normal peripheral pulses, regular rate, rhythm Abdomen: normal bowel sounds, non-tender, soft Male Genitalia: deferred Skin: normal color, warm/dry Extremities: non-tender Neuro/Psych: no motor/sensory deficits, alert, normal mood/affect, oriented x 3 ICD10 Worksheet Patient Problems: Problems Problem Status Onset Acute retention of urine Acute Arterial occlusion Acute
[2018-08-16] MEDS: LISINOPRIL/HCTZ 20/12.5MG 1 EA TAB PO SCH (10:08)
[2018-08-16] MEDS: ATORVASTATIN CALCIUM 40 MG TAB PO SCH (10:08)
[2018-08-16] MEDS: amLODIPine BESYLATE 5 MG TAB PO SCH (10:08)
[2018-08-16] MEDS: PREGABALIN 75 MG CAP PO SCH ×2 (10:08→20:00)
[2018-08-16] MEDS: HYDROCODONE/APAP 5/325 TAB PO PRN ×3 (11:07→19:43)
[2018-08-16] MEDS: HEPARIN/DEXTROSE 500 ML IV SCH (11:08)
--- NOTE | 2018-08-16 13:39 | HOSPPROG ---
Hospitalist Progress Note Assessment/Plan: #SFA occlusion: foot warmer, pinker today. No pulse with doppler. -s/p TPA lysis. On heparin gtt -plan for fem-pop bypass in morning by Dr. Oconnell #PAD: statin #Chronic right foot wounds: no acute infection. Wound care #Hypertensive urgency: normotensive now back on home meds #Permanent a fib: not on rate-control med. On heparin gtt #Asthma: no signs of exacerbation #Polycythemia vera: stable #Diet: NPO after MN #Disp: inpatient admission for lysis, heparin Subjective: mild pain right foot this morning Objective: Vital Signs Temp Pulse Resp BP Pulse Ox 36.6 C 69 22 H 162/77 H 94 08/16/18 04:00 08/16/18 10:00 08/16/18 10:00 08/16/18 10:00 08/16/18 10:00 Laboratory Results 08/16/18 06:15 08/14/18 06:00 08/15/18 08/16/18 08/17/18 05:59 05:59 05:59 Intake Total 3942 3135.7 Output Total 1250 1940 Balance 2692 1195.7 PT 18.7 SEC (12.0-15.0) H 08/13/18 12:15 INR 1.55 (0.83-1.16) H 08/13/18 12:15 - Time Spent With Patient Time Spent with Patient: greater than 35 minutes Time Spent with Patient: Greater than 35 minutes spent on this patients care, greater than 50% of time spent counseling, educating, and coordinating care regarding the above mentioned plan. - Physical Exam Constitutional: unkempt Ears, Nose, Mouth, Throat: poor dentition Cardiovascular: regular rate and rhythym Respiratory: no respiratory distress Gastrointestinal: normoactive bowel sounds Musculoskeletal: other (left groin site with mild surrounding erythema, no induration. Right foot 5th toe, heel wound with eschar) Neurologic: AAOx3, CN II-XII Intact Psychiatric: interacting appropriately ICD10 Worksheet Patient Problems: Problems Problem Status Onset Acute retention of urine Acute Arterial occlusion Acute
[2018-08-16] MEDS: hydrALAZINE 20 MG/ML VIAL IVP PRN (20:48)
[2018-08-16] MEDS: LORazepam 1 MG TAB PO PRN (21:59)
[2018-08-17] MEDS: NS 1,000 ML IV SCH (00:57)
[2018-08-17] MEDS: HEPARIN/DEXTROSE 500 ML IV SCH (03:59)
[2018-08-17] MEDS: DEXMEDETOMIDINE HCL 400 MCG in NS 100 ML IV SCH (04:43)
--- NOTE | 2018-08-17 09:07 | PDINTPN ---
Diamond Sizer And Grader Progress Note Assessment/Plan: Assessment/plan: * Peripheral vascular disease * SFA occlusion-status post tPA. -to OR today for fem-pop bypass * Acute blood-loss anemia-greater than 24 hr after pulling sheath * Pain-well controlled * History of asthma * Atrial fibrillation * Hypertension-well controlled Subjective: Resting comfortably. Currently on Precedex. Objective: Vital Signs Temp Pulse Resp BP Pulse Ox 36.8 C 71 21 H 114/67 94 08/17/18 04:00 08/17/18 04:00 08/17/18 04:00 08/17/18 04:00 08/17/18 04:00 Laboratory Results 08/16/18 06:15 08/14/18 06:00 08/16/18 08/17/18 08/18/18 05:59 05:59 05:59 Intake Total 3135.7 3720.6 Output Total 1940 1055 Balance 1195.7 2665.6 PT 18.7 SEC (12.0-15.0) H 08/13/18 12:15 INR 1.55 (0.83-1.16) H 08/13/18 12:15 - Time Spent With Patient Time Spent With Patient: 35 min of time spent with patient, over 1/2 involved with coordination of care or counseling. Case discussed with nursing Physical Exam - Physical Exam General Appearance: alert, no apparent distress EENT: PERRL/EOMI Neck: non-tender, supple Respiratory: prolonged expiration, No respiratory distress, No wheezing Cardiac/Chest: systolic murmur, irregularly irregular Abdomen: normal bowel sounds, non-tender, soft Male Genitalia: deferred Rectal: deferred Skin: normal color, warm/dry Extremities: non-tender Neuro/Psych: alert ICD10 Worksheet Patient Problems: Problems Problem Status Onset Acute retention of urine Acute Arterial occlusion Acute
--- NOTE | 2018-08-17 09:56 | HOSPPROG ---
Hospitalist Progress Note Assessment/Plan: #SFA occlusion: foot warmer, pinker today. No pulse with doppler. -s/p TPA lysis. On heparin gtt -plan for fem-pop bypass today #Left groin hematoma: bleeding last night at sheath site. H/H stable #PAD: statin #Chronic right foot wounds: no acute infection. Wound care #Hypertensive urgency: normotensive now back on home meds #Permanent a fib: not on rate-control med. On heparin gtt #Asthma: no signs of exacerbation #Polycythemia vera: stable #Diet: NPO after MN #Disp: inpatient admission for lysis, heparin Subjective: sheath site bled last night, now with left groin hematoma Objective: Vital Signs Temp Pulse Resp BP Pulse Ox 36.8 C 68 27 H 124/70 H 92 08/17/18 04:00 08/17/18 08:00 08/17/18 08:00 08/17/18 08:00 08/17/18 08:00 Laboratory Results 08/14/18 06:00 08/16/18 08/17/18 08/18/18 05:59 05:59 05:59 Intake Total 3135.7 3720.6 Output Total 1940 1055 Balance 1195.7 2665.6 PT 18.7 SEC (12.0-15.0) H 08/13/18 12:15 INR 1.55 (0.83-1.16) H 08/13/18 12:15 - Time Spent With Patient Time Spent with Patient: greater than 35 minutes Time Spent with Patient: Greater than 35 minutes spent on this patients care, greater than 50% of time spent counseling, educating, and coordinating care regarding the above mentioned plan. - Physical Exam Constitutional: no apparent distress Ears, Nose, Mouth, Throat: poor dentition Cardiovascular: regular rate and rhythym Respiratory: no respiratory distress Gastrointestinal: normoactive bowel sounds Musculoskeletal: other (left sheath site with moderate hematoma/hard. No TTP) Neurologic: AAOx3, CN II-XII Intact Psychiatric: interacting appropriately ICD10 Worksheet Patient Problems: Problems Problem Status Onset Acute retention of urine Acute Arterial occlusion Acute
[2018-08-17 10:33] LABS: PLATELET COUNT 728 10^3/uL (150-400)
[2018-08-17] MEDS ORDERED: IOTHALAMATE MEG (CONRAY) 50 ML VIAL IV ONE ×4 (10:53→18:06)
[2018-08-17] MEDS ORDERED: PROTAMINE SULFATE 50 MG/5 ML VIAL IVP ONE (10:53)
[2018-08-17] MEDS ORDERED: BUPIVACAINE 0.5% 30 ML SDV ONE (10:53)
[2018-08-17] MEDS ORDERED: ceFAZolin 2 GM/DEXTROSE 100 ML IV ONE (11:00)
--- NOTE | 2018-08-17 11:23 | PDANEPAE ---
ANE History of Present Illness Right SFA occlusion ANE Past Medical History - Cardiovascular History Hx Hypertension: Yes Hx Arrhythmias: Yes Hx Chest Pain: Yes Hx Coronary Artery / Peripheral Vascular Disease: Yes Hx CHF / Valvular Disease: Yes Hx Palpitations: No Cardiovascular History Comment: afib. chf. htn. pvd. see's dr whalen at [facility] - Pulmonary History Hx COPD: No Hx Asthma/Reactive Airway Disease: No Hx Recent Upper Respiratory Infection: No Hx Oxygen in Use at Home: No Hx Sleep Apnea: No Sleep Apnea Screening Result - Last Documented: Positive Pulmonary History Comment: yobany triggers no dx. has inhaler-instructed pt to bring dos. asthma. pulmonary htn - Neurologic History Hx Cerebrovascular Accident: Yes Hx Seizures: No Hx Dementia: No Neurologic History Comment: hx of neck surgery. cva 11/2009- right sided weakness. right leg and foot has neuropathy - Endocrine History Hx Diabetes: No Hypothyroid: No Hyperthyroid: No Obesity: no - Renal History Hx Renal Disorders: No Renal History Comment: bph. urinary retention. current catheter - Liver History Hx Hepatic Disorders: Yes Hepatic History Comment: hepatitis C - recieved cure about 6 months ago 2017 - Neurological & Psychiatric Hx Hx Neurological and Psychiatric Disorders: No - Cancer History Hx Cancer: Yes Cancer History Comment: melanoma - Congenital Disorder History Hx Congenital Disorders: No - GI History GERD: no Hx Gastrointestinal Disorders: No - Other Health History Other Health History: only has 2 teeth - wears dentures. - Chronic Pain History Chronic Pain: Yes - Surgical History Prior Surgeries: neck surgery. hernia. appy. splenectomy. cancer surgery- melanoma removed ANE Review of Systems Review of systems is: negative Review of Systems: - Exercise capacity Exercise capacity: limited by disability METS (RN): 2 METS ANE Patient History - Allergies Allergies/Adverse Reactions: No Known Allergies Allergy (Verified 07/10/18 13:25) - Home Medications Home medications: home medication list seen and reviewed Home Medications: Albuterol [Proventil Inhaler HFA (*)] 1 - 2 puffs IH DAILY PRN 12/22/16 [Last Taken 08/07/18] Atorvastatin Calcium [Lipitor 40 mg (*)] 40 mg PO DAILY 12/22/16 [Last Taken ] amLODIPine BESYLATE [Norvasc 5 mg (*)] 5 mg PO DAILY 12/22/16 [Last Taken ] Ibuprofen 800 mg PO TIDMEAL PRN 07/10/18 [Last Taken 08/09/18] Lisinopril/Hctz 20/12.5MG [Zestoretic/Prinzide 20/12.5MG (*)] 1 tab PO DAILY [Last Taken 08/13/18] Pregabalin [Lyrica 75mg (*)] 75 mg PO BID 07/10/18 [Last Taken 08/13/18 08:00] Warfarin Sodium [Coumadin 5MG (*)] 2.5 mg PO SUMOWEFR@19 07/10/18 [Last Taken ] Warfarin Sodium [Coumadin 5MG (*)] 5 mg PO TUTHSA@07/10/18 [Last Taken ] Hydrocodone/APAP 5/325 [[place] 5/325 (*)] 1 tab PO BID PRN 08/13/18 [Last Taken 08/13/18] - NPO status NPO Status: no food or drink >8 hours - Anes Hx Anes Hx: no prior problems - Smoking Hx Smoking Status: Never smoked - Family Anes Hx Family Hx Anesthesia Complications: none ANE Labs/Vital Signs - Labs Result Diagrams: 08/17/18 09:37 08/14/18 06:00 - Vital Signs Vital Signs: reviewed preoperatively; see RN documention for details Blood Pressure: 124/70 Heart Rate: 68 Respiratory Rate: 27 O2 Sat (%): 92 Height: 172.72 cm Weight: 73.936 kg ANE Physical Exam - Airway Neck exam: FROM Mallampati Score: Class 2 Mouth exam: poor dentition - Pulmonary Pulmonary: no respiratory distress - Cardiovascular Cardiovascular: regular rate and rhythym - ASA Status ASA Status: IV ANE Anesthesia Plan Anesthesia Plan: general endotracheal anesthesia Lines/Monitors: arterial line
[2018-08-17] MEDS ORDERED: fentaNYL 100 MCG/2 ML INJ ONE (14:00)
[2018-08-17] MEDS ORDERED: PROPOFOL 200 MG/20 ML VIAL ONE (14:01)
[2018-08-17] MEDS ORDERED: ROCURONIUM 50 MG/5 ML VIAL ONE (14:02)
[2018-08-17] MEDS ORDERED: ONDANSETRON 4 MG/2 ML VIAL ONE (14:06)
[2018-08-17] MEDS ORDERED: LIDOCAINE 2% 5 ML SDV ONE (14:06)
[2018-08-17] MEDS ORDERED: DEXAMETHASONE 4 MG/ML VIAL ONE ×2 (14:08→14:09)
[2018-08-17] MEDS: ATORVASTATIN CALCIUM 40 MG TAB PO SCH (14:17)
[2018-08-17] MEDS: amLODIPine BESYLATE 5 MG TAB PO SCH (14:17)
[2018-08-17] MEDS: PREGABALIN 75 MG CAP PO SCH ×2 (14:18→21:35)
[2018-08-17] MEDS: LISINOPRIL/HCTZ 20/12.5MG 1 EA TAB PO SCH (14:18)
[2018-08-17] MEDS ORDERED: HYDROmorphONE/DILAUDID 2 MG/ML INJ ONE ×2 (14:51→16:00)
[2018-08-17] MEDS ORDERED: PHENYLEPHRINE HCL 100 MCG/ML SYR ONE (15:07)
[2018-08-17] MEDS ORDERED: ceFAZolin 1 GM VIAL ONE ×2 (18:54)
--- NOTE | 2018-08-17 20:19 | POSTOPPROG ---
Post Op Note Date of Operation: 08/17/18 Surgeon: Rangel Oconnell Fullerette: Tristen Anesthesiologist: Billy Anesthesia: GET(General Endotracheal) Pre-op Diagnosis: PVD, R foot pain Post-op Diagnosis: same Indication: same Procedure: R fem-tib bypass with saphenous vein graft, SFA&profunda endarterectomy Findings: Dissected R popliteal artery Inf/Abcess present in the surg proc area at time of surgery?: No Depth: Deep Incisional (Fascial) EBL: 100-500
[2018-08-17] MEDS: ASPIRIN 81 MG CHEWABLE TAB PO SCH (21:35)
[2018-08-17] MEDS: HYDROCODONE/APAP 5/325 TAB PO PRN (22:04)
[2018-08-17] MEDS: LORazepam 1 MG TAB PO PRN (23:13)
[2018-08-18] MEDS: DEXMEDETOMIDINE HCL 400 MCG in NS 100 ML IV SCH ×3 (00:37→23:57)
[2018-08-18] MEDS: NS 1,000 ML IV SCH ×2 (04:14→13:03)
[2018-08-18] MEDS: PREGABALIN 75 MG CAP PO SCH ×2 (08:23→19:21)
[2018-08-18] MEDS: amLODIPine BESYLATE 5 MG TAB PO SCH (08:23)
[2018-08-18] MEDS: ATORVASTATIN CALCIUM 40 MG TAB PO SCH (08:23)
[2018-08-18] MEDS: LISINOPRIL/HCTZ 20/12.5MG 1 EA TAB PO SCH (08:23)
[2018-08-18] MEDS: ASPIRIN 81 MG CHEWABLE TAB PO SCH (08:23)
--- NOTE | 2018-08-18 09:36 | PDINTPN ---
Chemical Laboratory Tester Progress Note Assessment/Plan: Assessment/plan: * Peripheral vascular disease * SFA occlusion-status post right fem- tib bypass with saphenous vein graft, SFA and profunda endarterectomy * Acute blood-loss anemia-greater than 24 hr after pulling sheath * Pain-well controlled * History of asthma * Atrial fibrillation * Hypertension-well controlled * VT prophylaxis * Stress ulcer prophylaxis * PT/OT Subjective: Resting comfortably. No current complaints. Objective: Vital Signs Temp Pulse Resp BP Pulse Ox 36.3 C 78 21 H 117/68 94 08/18/18 03:54 08/18/18 08:03 08/18/18 08:03 08/18/18 08:23 08/18/18 08:03 Laboratory Results 08/18/18 05:59 08/18/18 05:59 08/17/18 08/18/18 08/19/18 05:59 05:59 05:59 Intake Total 3720.6 1752.6 Output Total 1055 385 Balance 2665.6 1367.6 PT 18.7 SEC (12.0-15.0) H 08/13/18 12:15 INR 1.55 (0.83-1.16) H 08/13/18 12:15 - Time Spent With Patient Time Spent With Patient: 35 min of time spent with patient, over 1/2 involved with coordination of care counseling. Physical Exam - Physical Exam General Appearance: alert, no apparent distress EENT: PERRL/EOMI Neck: non-tender Respiratory: chest non-tender, lungs clear Cardiac/Chest: normal peripheral pulses, regular rate, rhythm Abdomen: normal bowel sounds, non-tender, soft Male Genitalia: deferred Rectal: deferred Skin: normal color, warm/dry Extremities: non-tender Neuro/Psych: alert ICD10 Worksheet Patient Problems: Problems Problem Status Onset Acute retention of urine Acute Arterial occlusion Acute
--- NOTE | 2018-08-18 14:48 | SOAPPROG ---
ELVIS Progress Note Assessment/Plan: Assessment: FOOT WARMER BUT STILL PAINFUL ANT TIB VESSEL REASONABLY OPEN RISKS AND OPTIONS FULLY DISCUSSED Plan:FEM-TIB BYPASS/ POSSIBLY WILL NEED FASCIOTOMIES/ WILL SCHEDULE IN AM PROBABLY 08/16/18 08:19 08/18/18 14:47 STATUS POST FEM ANTERIOR TIBIAL BYPASS WITH SAPHENOUS VEIN/REASONABLY COMFORTABLE WITH NO COMPLAINTS AFEBRILE/VITAL SIGNS STABLE/URINE OUTPUT SLUGGISH WOUND OKAY/PALPABLE PEDAL PULSE AND PINK WARM TOES IMPRESSION: STABLE WITH THE VIABLE FOOT/NO NEED FOR FASCIOTOMIES AT THIS TIME Objective: Vital Signs Temp Pulse Resp BP Pulse Ox 36 C 64 24 H 122/62 H 94 08/18/18 11:59 08/18/18 11:59 08/18/18 11:59 08/18/18 11:59 08/18/18 11:59 Laboratory Results 08/18/18 05:59 08/18/18 05:59 08/17/18 08/18/18 08/19/18 05:59 05:59 05:59 Intake Total 3720.6 1752.6 Output Total 1055 385 Balance 2665.6 1367.6 PT 18.7 SEC (12.0-15.0) H 08/13/18 12:15 INR 1.55 (0.83-1.16) H 08/13/18 12:15 ICD10 Worksheet Patient Problems: Problems Problem Status Onset Acute retention of urine Acute Arterial occlusion Acute
--- NOTE | 2018-08-18 15:30 | PDGENHP ---
History & Physical Chief Complaint: RIGHT LEG PAIN History of Present Illness: 68-YEAR-OLD MALE WITH SEVERE PAIN IN HIS RIGHT LEG REQUIRING PRECEDEX AND OTHER NARCOTICS. HE HAS HAD THIS PAIN FOR OVER A MONTH HAS BEEN SEEN IN THE HOSPITAL TWICE. HE WAS DISCHARGED IN JUNE ON COUMADIN BUT APPARENTLY HAS NOT BEEN TAKING. HE HAS BEEN HERE FOR 2 DAYS WITH IR IT HIM SET OPENING UP HIS RIGHT SFA BUT WITH LITTLE SUCCESS. HE HAS ONLY SINGLE- VESSEL RUNOFF TO THE LEG THROUGH THE ANTERIOR TIBIAL ARTERY WHICH HAS BEEN OCCLUDED PROXIMALLY. I WAS CONSULTED FOR POSSIBLE LIMB SALVAGE HIS THROMBOLYSIS IS NOT SUCCEEDING. AT THE PRESENT TIME HE CAN BARELY MOVE HIS FOOT CANNOT WIGGLE HIS TOES AND HAS POOR PROPRIOCEPTION IN HIS TOES WITH NO PALPABLE PULSES AND NO SIGNIFICANT CAPILLARY REFILL Pertinent Past, Social, Family History: PAST MEDICAL HISTORY: HYPERTENSION, PERIPHERAL VASCULAR DISEASE, ASTHMA. ALLERGIES NONE. MEDICATIONS WARFARIN, ALUPENT, ASPIRIN. REVIEW OF SYSTEMS IS NEGATIVE ON A 10 POINT REVIEW FOR ANY MAJOR MEDICAL PROBLEMS. SPECIFICALLY DENIES SMOKING AND DIABETES. FAMILY HISTORY NONCONTRIBUTORY. SOCIAL HISTORY REVEALS HE DOES NOT SMOKE A MAY BE HOMELESS AT TIMES Relevant Physical Exam: 68-YEAR-OLD MALE APPEARING MUCH OLDER THAN HIS STATED AGE WHO IS IN SOME DISCOMFORT. HEENT NONICTERIC, NO ADENOPATHY, PERRLA, POOR DENTITION WITH MULTIPLE MISSING TEETH. NECK SUPPLE, FULL RANGE OF MOTION, NO BRUITS. CHEST CLEAR AND SYMMETRIC. COR REGULAR RHYTHM WITH MILD TACHYCARDIA. ABDOMEN SOFT NONTENDER WITHOUT MASSES OR HERNIAS. GENITALIA NORMAL. EXTREMITIES: LEFT LEG PALPABLE PULSES WITH FULL RANGE OF MOTION/ RIGHT LEG HAS ABSENT PEDAL AND POPLITEAL PULSES BUT GOOD FEMORAL PULSE. RIGHT FOOT IS CYANOTIC COLD AND PAINFUL WELL THE CALF IS PAINFUL AND HE HAS DECREASED RANGE OF MOTION. NEURO EXAM IS PHYSIOLOGIC AND SYMMETRIC EXCEPT FOR THE PAIN IN HIS RIGHT LOWER EXTREMITY. PSYCH EXAM HE IS ALERT, ORIENTED AND COOPERATIVE Cardiorespiratory Assessment: IMPRESSION: SEVERE LIFE-THREATENING PERIPHERAL VASCULAR DISEASE WITH RIGHT LEG SEVERELY COMPROMISED. THE PRESENT TIME HE HAS NO TARGETS FOR BYPASS BUT HE IS UNDERGOING THROMBOLYSIS OF THE ANTERIOR TIBIAL ARTERY. IF THAT IS SUCCESSFUL IN OPENING UP THAN HE MAY HAVE A TARGET FOR A FEMORAL TIBIAL BYPASS FOR LIMB SALVAGE. RISKS AND OPTIONS BEEN FULLY DISCUSSED AND HE UNDERSTANDS THAT HE IS AT HIGH RISK FOR AMPUTATION. PLAN: FOLLOW-UP TPA LYSIS OF THE ANTERIOR TIBIAL WITH FOLLOW-UP ANGIOGRAPHY AND FEMORAL TIBIAL BYPASS IF PATENT TO THE FOOT. OTHERWISE HE IS PROBABLY FACING A BK AMPUTATION. THIS IS ALL BEEN DISCUSSED WITH DR. JENNIFER BRUCE WITH DR. SOTO
--- NOTE | 2018-08-18 15:37 | SOAPPROG ---
ELVIS Progress Note Assessment/Plan: Assessment: FOOT WARMER BUT STILL PAINFUL ANT TIB VESSEL REASONABLY OPEN RISKS AND OPTIONS FULLY DISCUSSED Plan:FEM-TIB BYPASS/ POSSIBLY WILL NEED FASCIOTOMIES/ WILL SCHEDULE IN AM PROBABLY 08/16/18 08:19 08/18/18 14:47 STATUS POST FEM ANTERIOR TIBIAL BYPASS WITH SAPHENOUS VEIN/REASONABLY COMFORTABLE WITH NO COMPLAINTS AFEBRILE/VITAL SIGNS STABLE/URINE OUTPUT SLUGGISH WOUND OKAY/PALPABLE PEDAL PULSE AND PINK WARM TOES IMPRESSION: STABLE WITH THE VIABLE FOOT/NO NEED FOR FASCIOTOMIES AT THIS TIME 08/18/18 15:35 LEG HAS SHOWN SOME IMPROVEMENT IN ANGIOGRAPHY SHOWS A PATENT ANTERIOR TIBIAL ARTERY DOWN TO THE ANKLE WITH SOME RUNOFF TO THE DORSALIS PEDIS. HOWEVER TODAY HEAD ARTERIAL STUDY OF HIS LEG REVEALS NO FLOW IN THAT ANTERIOR TIBIAL ARTERY. RISKS AND OPTIONS BEEN FULLY DISCUSSED AND HE WISHES TO PROCEED WITH POSSIBLE FEM TIBIAL BYPASS FOR LIMB SALVAGE. HE FULLY UNDERSTANDS THE RISK THAT HE IS FACING INCLUDING NEED FOR AMPUTATION IF THIS IS UNSUCCESSFUL NO PALPABLE OR DOPPLERABLE PEDAL PULSES/MULTIPLE ISCHEMIC LESIONS IN HIS RIGHT FOOT CHEST CLEAR COR REGULAR RHYTHM Objective: Vital Signs Temp Pulse Resp BP Pulse Ox 36 C 64 24 H 122/62 H 94 08/18/18 11:59 08/18/18 11:59 08/18/18 11:59 08/18/18 11:59 08/18/18 11:59 Laboratory Results 08/18/18 05:59 08/18/18 05:59 08/17/18 08/18/18 08/19/18 05:59 05:59 05:59 Intake Total 3720.6 1752.6 Output Total 1055 385 Balance 2665.6 1367.6 PT 18.7 SEC (12.0-15.0) H 08/13/18 12:15 INR 1.55 (0.83-1.16) H 08/13/18 12:15 ICD10 Worksheet Patient Problems: Problems Problem Status Onset Acute retention of urine Acute Arterial occlusion Acute
[2018-08-18] MEDS ORDERED: WARFARIN SODIUM 5 MG TAB PO SCH (16:00)
--- NOTE | 2018-08-18 16:43 | HOSPPROG ---
Hospitalist Progress Note Assessment/Plan: * PVD with critical limb ischemia RLE -s/p fem - anterior tib bypass - attempt at limb salvage -s/p failed tpa lysis -on ASA/statin -at risk for amputation -IV precedex Gtt - difficult pain control RLE * Groin hematoma -follow * afib -resume warfarin -h/o non-compliance - presented with subtherapeutic INR * Chronic foot wounds -wound care * Polycythemia vera * HTN -home meds Subjective: Trying to wean precedex gtt Objective: Vital Signs Temp Pulse Resp BP Pulse Ox 36.4 C 79 24 H 138/71 H 98 08/18/18 15:42 08/18/18 15:42 08/18/18 15:42 08/18/18 15:42 08/18/18 15:42 Laboratory Results 08/18/18 05:59 08/18/18 05:59 08/17/18 08/18/18 08/19/18 05:59 05:59 05:59 Intake Total 3720.6 1752.6 Output Total 1055 385 Balance 2665.6 1367.6 PT 18.7 SEC (12.0-15.0) H 08/13/18 12:15 INR 1.55 (0.83-1.16) H 08/13/18 12:15 d/w Dr. Diaz regarding icu plan - wean precedex as able US - negative for DVT - Physical Exam Constitutional: no apparent distress, appears nourished, not in pain Cardiovascular: regular rate and rhythym, no murmur, rub, or gallop Respiratory: no respiratory distress, no rales or rhonchi, clear to auscultation Gastrointestinal: normoactive bowel sounds, soft, non-tender abdomen, no palpable masses Skin: no rashes or abrasions, no fluctuance, no induration Neurologic: AAOx3, sensation intact bilaterally Psychiatric: interacting appropriately, not anxious, not encephalopathic, thought process linear ICD10 Worksheet Patient Problems: Problems Problem Status Onset Acute retention of urine Acute Arterial occlusion Acute
[2018-08-18] MEDS: HYDROCODONE/APAP 5/325 TAB PO PRN (17:12)
[2018-08-18] MEDS: LORazepam 1 MG TAB PO PRN (19:21)
[2018-08-19 06:22] LABS: INR 1.46 (0.83-1.16); PROTIME(PATIENT) 17.9 SEC (12.0-15.0)
[2018-08-19 06:37] LABS: PLATELET COUNT 723 10^3/uL (150-400)
[2018-08-19] MEDS: PREGABALIN 75 MG CAP PO SCH ×2 (08:29→19:57)
[2018-08-19] MEDS: ASPIRIN 81 MG CHEWABLE TAB PO SCH (08:29)
[2018-08-19] MEDS: LISINOPRIL/HCTZ 20/12.5MG 1 EA TAB PO SCH (08:29)
[2018-08-19] MEDS: amLODIPine BESYLATE 5 MG TAB PO SCH (08:30)
[2018-08-19] MEDS: ATORVASTATIN CALCIUM 40 MG TAB PO SCH (08:30)
[2018-08-19] MEDS ORDERED: PROTOCOL POTASSIUM 1 DOSE MISC PRN (08:36)
[2018-08-19] MEDS ORDERED: POTASSIUM CL 10 MEQ TAB PO ONE (09:05)
--- NOTE | 2018-08-19 09:07 | PDINTPN ---
Production Trainer Progress Note Assessment/Plan: Assessment/plan: * Peripheral vascular disease * SFA occlusion-status post right fem- tib bypass with saphenous vein graft, SFA and profunda endarterectomy * Acute blood-loss anemia-stable -follow * Pain-poorly controlled. * History of asthma * Atrial fibrillation * Hypertension-well controlled * VT prophylaxis * Stress ulcer prophylaxis * PT/OT-unable to work with PT secondary to pain Subjective: Complains of pain Objective: Vital Signs Temp Pulse Resp BP Pulse Ox 36.3 C 71 18 131/67 H 95 08/19/18 08:00 08/19/18 08:00 08/19/18 08:00 08/19/18 08:30 08/19/18 08:00 Laboratory Results 08/19/18 06:00 08/19/18 06:00 08/18/18 08/19/18 08/20/18 05:59 05:59 05:59 Intake Total 1752.6 4457 Output Total 385 1625 Balance 1367.6 2832 PT 17.9 SEC (12.0-15.0) H 08/19/18 06:00 INR 1.46 (0.83-1.16) H 08/19/18 06:00 Laboratory Results 08/19/18 06:00 08/19/18 06:00 08/19/18 08/19/18 08/17/18 06:00 06:00 01:00 PT 17.9 SEC H SEC (12.0 - 15.0) INR 1.46 H (0.83 - 1.16) Heparin Anti-Xa, Unfract 0.72 IU/mL H* IU/mL (0.32 - 0.67) Calcium 8.0 mg/dL L mg/dL (8.5 - 10.4) 08/16/18 08/16/18 19:48 11:51 PT INR Heparin Anti-Xa, Unfract 0.63 IU/mL IU/mL 0.69 IU/mL H IU/mL (0.32 - 0.67) (0.32 - 0.67) Calcium - Time Spent With Patient Time Spent With Patient: 35 min of time spent with patient, over 1/2 involved with coordination of care or counseling. Case discussed with nursing Physical Exam - Physical Exam General Appearance: alert, mild distress EENT: PERRL/EOMI Neck: non-tender, supple Respiratory: lungs clear, No wheezing Cardiac/Chest: normal peripheral pulses, regular rate, rhythm, systolic murmur Abdomen: non-tender, soft Male Genitalia: deferred Rectal: deferred Skin: warm/dry Neuro/Psych: no motor/sensory deficits, alert, normal mood/affect, oriented x 3 ICD10 Worksheet Patient Problems: Problems Problem Status Onset Acute retention of urine Acute Arterial occlusion Acute
[2018-08-19] MEDS: HYDROCODONE/APAP 5/325 TAB PO PRN ×3 (09:19→23:20)
[2018-08-19] MEDS ORDERED: oxyCODONE IR 5 MG TAB PO PRN (11:41)
--- NOTE | 2018-08-19 12:23 | ASMTCMCOM ---
CM Note CM Note Notes: 08/19/2018 Case Management Note Met w/pt to discuss discharge needs. Pt had previous stay at [facility]. Faxed referrals to [facility] and [facility]. Discharge date unclear. Case Management d/c poc: SNF rehab pending acceptance. Case Management to follow. Date Signed: 08/19/2018 12:22 PM Electronically Signed By:Becky Kunz RN
--- NOTE | 2018-08-19 13:41 | GOP ---
DATE OF OPERATION: 08/17/2018 SURGEON: Rangel Oconnell MD SPA THERAPIST: Cathy Ramon, nurse-practitioner ANESTHESIOLOGIST: Jose Cervantes MD PREOPERATIVE DIAGNOSIS: Severe ischemia of the right leg. POSTOPERATIVE DIAGNOSIS: Severe ischemia of the right leg. PROCEDURE PERFORMED: Right femoral anterior tibial bypass with reverse saphenous vein graft, femoral and profunda femoris endarterectomies with patch graft, intraoperative angiography, and ultrasound v ein mapping and exploration of the popliteal artery. FINDINGS: The patient was found to have a reasonably adequate saphenous vein. The popliteal artery was a single vessel with no evidence of a tibioperoneal trunk leading right into the anterior tibial artery; however, the proximal portion of the popliteal artery was completely dissected probably from the previous angioplastic intervention and we could not maintain open flow in the vessel on angiograp hy. The distal anterior tibial artery was adequate and showed flow into the foot. The vein graft wa s adequate, but was insufficient in length to reach the common femoral artery requiring endarterectom y of the SFA, common femoral artery, and profunda femoral artery junction. DESCRIPTION OF PROCEDURE: The patient was taken to the operating room where he received a satisfacto ry general endotracheal anesthesia. He was prepped and draped in the usual sterile fashion. Incision was made in the medial aspect of the lower leg. Dissection extended down through the subcut aneous tissue. Prior to this, the saphenous vein had been mapped with ultrasound and appeared to be adequate for use as a conduit. This was marked on the skin with a marker to avoid injury. The incis ion was above this into the popliteal space and the popliteal artery was dissected free. It appeared to be an adequate artery, was dissected free, and isolated with vessel loops. A second incision was then made in the inguinal area and the common femoral, profunda femoris, and superficial femoral art eries were carefully dissected free and controlled with vessel loops. At that point, the saphenous vein was then mobilized and harvested with a long incision extending oscar n the medial aspect of the leg and well below the popliteal incision. The vein was mobilized. All b ranches were multiply ligated and divided. The vein was then divided distally and tested with hepari nized saline injection and any leakage spots were controlled with 6-0 Prolene sutures or with hemocli ps. The fossa ovalis was then doubly ligated with silk and the vein was divided and prepared for use as a conduit. At that point, the patient was systemically heparinized. The popliteal artery was occluded with vess el loops and an incision was made in the side of the popliteal artery, and entering the artery, there was some flow, however, appeared to be completely dissected. Multiple attempts to pass catheters rafael mendoza met with no real success. The angiography showed no flow distally despite having some run marielena k flow and inflow as well. It was felt necessary to abandon any attempt at successful anastomosis at that area. Incision was then made in the anterior compartment of the lower leg distally and dissection extended down between the extensor muscles down to the neurovascular bundle, and the anterior tibial artery wa s dissected free and controlled with vessel loops at that level, appeared to be an adequate vessel. Arteriotomy was then performed showing a patent artery going into the foot. Selected to proceed with a direct anastomosis. This was done with a running 6-0 Prolene suture securing the saphenous vein t o the artery. Suture line appeared to be hemostatic. It was irrigated with heparinized saline. The vein graft was then tunneled subcutaneously along the outside of the leg up to the groin incision wi th much care to avoid any twisting or kinking of the graft. The graft would just barely reach the co mmon femoral artery under significant tension and was elected to do an endarterectomy of the superfic ial femoral artery to reduce the tension on the anastomosis. Incision was made in the distal end of the common femoral artery into the superficial femoral artery. Superficial femoral was completely occluded. Endarterectomy was done for the first inch of the sup erficial femoral artery, as well as the origin of the profunda femorals, and the distal portion of th e common femoral artery with markedly improved backflow from the profunda femoris and established goo d inflow from the common femoral. The graft would not reach all the way to cover the arteriotomy inc ision, so it was sutured to the distal end of the endarterectomy incision with a running 6-0 Prolene suture, and then, a Satsop-Serjio patch graft was used to complete the closure of the common femoral arter iotomy. That was secured in place. The running 7 0 Hemashield suture. Flow was first established through the superficial femoral artery, then through the profunda, and the n finally through the vein graft. There was excellent pulse in the vein graft and subsequent pedal p ulse in the foot. Suture lines appeared to be hemostatic. Heparin was partially reversed with prota mine for better hemostasis. Wounds were copiously irrigated and hemostasis was thoroughly obtained. The wounds were sprayed with some topical thrombin. The groin incision was closed with 2-0 Vicryl f or the fascia, 3-0 Vicryl for the subcu, and skin david for the skin. The saphenous vein harvestin g site was closed with a running 2-0 Vicryl for the subcutaneous tissue, and skin david for the ski n. The distal anastomotic site was closed with short interrupted 2-0 Vicryl sutures in the subcutane ous tissue and skin david for the skin. He maintained a good pulse in the bypass graft and into th e foot. All wounds were infiltrated with 0.5% Marcaine, and he tolerated the procedure quite well. He was taken to the recovery room in satisfactory condition. /[id number]/MODL
[2018-08-19] MEDS ORDERED: WARFARIN SODIUM 5 MG TAB PO ONE (16:00)
--- NOTE | 2018-08-19 16:24 | HOSPPROG ---
Hospitalist Progress Note Assessment/Plan: * PVD with critical limb ischemia RLE -s/p fem-anterior tib bypass - attempt at limb salvage -s/p failed tpa lysis -on ASA/statin -at risk for amputation * Groin hematoma -follow * afib -resume warfarin -h/o non-compliance - presented with subtherapeutic INR -d/w Dr. Oconnell - no need for bridging heparin * Chronic foot wounds -wound care * Polycythemia vera * HTN -home meds * SIRS -very elevated WBC and tachycardia -doubt infection - suspect inflammation due to limb ischemia Subjective: Lots of leg pain still Objective: Vital Signs Temp Pulse Resp BP Pulse Ox 37.3 C 108 H 17 162/89 H 93 08/19/18 16:00 08/19/18 16:00 08/19/18 16:00 08/19/18 16:00 08/19/18 16:00 Laboratory Results 08/19/18 06:00 08/19/18 06:00 08/18/18 08/19/18 08/20/18 05:59 05:59 05:59 Intake Total 1752.6 4457 Output Total 385 1625 Balance 1367.6 2832 PT 17.9 SEC (12.0-15.0) H 08/19/18 06:00 INR 1.46 (0.83-1.16) H 08/19/18 06:00 d/w Dr. Diaz regarding transfer out of ICU tele - NSR - Physical Exam Constitutional: no apparent distress, appears nourished, not in pain Cardiovascular: regular rate and rhythym, no murmur, rub, or gallop Respiratory: no respiratory distress, no rales or rhonchi, clear to auscultation Gastrointestinal: normoactive bowel sounds, soft, non-tender abdomen, no palpable masses Skin: no rashes or abrasions, no fluctuance, no induration Neurologic: AAOx3, weakness (RLE) Psychiatric: interacting appropriately, not anxious, not encephalopathic, thought process linear ICD10 Worksheet Patient Problems: Problems Problem Status Onset Acute retention of urine Acute Arterial occlusion Acute
[2018-08-19] MEDS: hydrALAZINE 20 MG/ML VIAL IVP PRN (19:56)
[2018-08-19] MEDS: LORazepam 1 MG TAB PO PRN (23:21)
[2018-08-20 05:29] LABS: INR 2.01 (0.83-1.16); PROTIME(PATIENT) 22.8 SEC (12.0-15.0)
[2018-08-20 05:34] LABS: CREATINE KINASE 552 IU/L (0-224)
[2018-08-20 05:36] LABS: PLATELET COUNT 867 10^3/uL (150-400)
[2018-08-20] MEDS ORDERED: POTASSIUM CL 10 MEQ TAB PO ONE ×2 (07:24→20:48)
[2018-08-20] MEDS: hydrALAZINE 20 MG/ML VIAL IVP PRN ×2 (08:13→17:05)
--- NOTE | 2018-08-20 09:45 | SOAPPROG ---
ELVIS Progress Note Assessment/Plan: Assessment: FOOT WARMER BUT STILL PAINFUL ANT TIB VESSEL REASONABLY OPEN RISKS AND OPTIONS FULLY DISCUSSED Plan:FEM-TIB BYPASS/ POSSIBLY WILL NEED FASCIOTOMIES/ WILL SCHEDULE IN AM PROBABLY 08/16/18 08:19 08/18/18 14:47 STATUS POST FEM ANTERIOR TIBIAL BYPASS WITH SAPHENOUS VEIN/REASONABLY COMFORTABLE WITH NO COMPLAINTS AFEBRILE/VITAL SIGNS STABLE/URINE OUTPUT SLUGGISH WOUND OKAY/PALPABLE PEDAL PULSE AND PINK WARM TOES IMPRESSION: STABLE WITH THE VIABLE FOOT/NO NEED FOR FASCIOTOMIES AT THIS TIME 08/18/18 15:35 LEG HAS SHOWN SOME IMPROVEMENT IN ANGIOGRAPHY SHOWS A PATENT ANTERIOR TIBIAL ARTERY DOWN TO THE ANKLE WITH SOME RUNOFF TO THE DORSALIS PEDIS. HOWEVER TODAY HEAD ARTERIAL STUDY OF HIS LEG REVEALS NO FLOW IN THAT ANTERIOR TIBIAL ARTERY. RISKS AND OPTIONS BEEN FULLY DISCUSSED AND HE WISHES TO PROCEED WITH POSSIBLE FEM TIBIAL BYPASS FOR LIMB SALVAGE. HE FULLY UNDERSTANDS THE RISK THAT HE IS FACING INCLUDING NEED FOR AMPUTATION IF THIS IS UNSUCCESSFUL NO PALPABLE OR DOPPLERABLE PEDAL PULSES/MULTIPLE ISCHEMIC LESIONS IN HIS RIGHT FOOT CHEST CLEAR COR REGULAR RHYTHM 08/20/18 09:43 COMFORTABLE/FOOT WARM/GOOD PALPABLE PULSES/WOUNDS OKAY LABS REASONABLY GOOD BUT WBC STILL 26 K AND CPK 500 MAJOR COMPLAINT IS HICCUPS/ NO NEED FOR FURTHER FASCIOTOMY YET/AMBULATING ADEQUATELY/WANTS TO GO HOME TOMORROW Objective: Vital Signs Temp Pulse Resp BP Pulse Ox 37.0 C 108 H 18 176/84 H 91 L 08/20/18 07:54 08/20/18 07:54 08/20/18 07:54 08/20/18 08:13 08/20/18 07:54 Laboratory Results 08/20/18 05:07 08/20/18 05:07 08/19/18 08/20/18 08/21/18 05:59 05:59 05:59 Intake Total 4457 2606 Output Total 1625 2400 850 Balance 2832 206 -850 PT 22.8 SEC (12.0-15.0) H 08/20/18 05:07 INR 2.01 (0.83-1.16) H 08/20/18 05:07 ICD10 Worksheet Patient Problems: Problems Problem Status Onset Acute retention of urine Acute Arterial occlusion Acute
[2018-08-20] MEDS: PREGABALIN 75 MG CAP PO SCH ×2 (09:47→21:12)
[2018-08-20] MEDS: LISINOPRIL/HCTZ 20/12.5MG 1 EA TAB PO SCH (09:47)
[2018-08-20] MEDS: ATORVASTATIN CALCIUM 40 MG TAB PO SCH (09:47)
[2018-08-20] MEDS: amLODIPine BESYLATE 5 MG TAB PO SCH (09:47)
[2018-08-20] MEDS: ASPIRIN 81 MG CHEWABLE TAB PO SCH (09:48)
--- NOTE | 2018-08-20 13:11 | WOCRNPDOC ---
[facility] Advanced Assessment Note - Skin Integrity Problem, Advanced Assess Right Lateral Heel Dressing Type: Allevyn Life Exudate Amount: Minimal Exudate Characteristic(s): Serosanguinous Integumentary Issue Intervention: Dressing Removed Yeison Wound Tissue: Erythema (yeison wound to 2 cm), Painful/Tender Wound Bed Constitution: Mixed Loose & Adhered Slough/Eschar (100%) Site Odor: Very Strong, Foul, Pungent Site Measurement - Head-to-Toe Length X Width X Depth (cm): 2.2x2.4x0.3 Pressure Injury Stage: Unstageable Pressure Injury Present on Admit: Yes Skin Integrity Problem Comment: Soft moist odiferous wound. Patient refusing heel offloading boots. Education done with patient about the consequence of not offloading the heel and patient verbalizes "I know, I know". Heel offloaded with pillow. Wound will likely need surgical debridement if blood flow to foot is adequete, as autolytic debridment will be too slow. Discussed plan with Riddhi LAMB and will update wound care orders. Will D/C autolytic debridement and instead initiate painting with betadine to dry out all wounds, try and stabilize the eschar and reduce the chance of infection for now. Wound care will follow. Right Anterior Ankle Dressing Type: Open to Air Wound Bed Constitution: Scab, Stable Eschar Site Measurement - Head-to-Toe Length X Width X Depth (cm): 0.3x0.9xscab/eschar Pressure Injury Stage: Unstageable Skin Integrity Problem Comment: Likely from TEDS or other wrap/cover. Right Fifth Toe Dressing Type: Open to Air Site Measurement - Head-to-Toe Length X Width X Depth (cm): 1x1x0 Skin Integrity Problem Comment: Ischemic distal toe. No sign of infection. Peebles with betadine BID. Right Posterior Ankle Dressing Type: Allevyn Life Yeison Wound Tissue: Erythema, Painful/Tender Wound Bed Constitution: Mixed Loose & Adhered Slough/Eschar (100% soft/moist eschar), Unstable Eschar Site Measurement - Head-to-Toe Length X Width X Depth (cm): 1.7x1.3x0.3 Pressure Injury Stage: Unstageable, Veneer Lathe Operator Related Pressure Injury Pressure Injury Present on Admit: Yes Right Lateral Distal Foot Dressing Type: Open to Air Wound Bed Constitution: Stable Eschar Site Measurement - Head-to-Toe Length X Width X Depth (cm): 0.8x0.8x0 Pressure Injury Stage: Unstageable Pressure Injury Present on Admit: Yes
[2018-08-20] MEDS: chlorproMAZINE HCL 25 MG TAB PO PRN (13:16)
--- NOTE | 2018-08-20 14:36 | HOSPPROG ---
Hospitalist Progress Note Assessment/Plan: * PVD with critical limb ischemia RLE - s/p fem-anterior tib bypass - attempt at limb salvage, s/p failed tpa lysis -cont ASA/statin plus coumadin -discussed with Dr. Oconnell * Groin hematoma -follow * afib - on warfarin, INR therapeutic today at 2.0. Note h/o non-compliance - presented with subtherapeutic INR -cont warfarin, BB * tachycardia - doesn't seem volume depleted. H&H stable. He was sub- therapeutic on coumadin until this am and post-op status raises concern for PE -check ekg (sinus) -CTA now to r/o PE (neg) -add metoprolol * Chronic foot wounds -wound care * Polycythemia vera * HTN - poor control -cont norvasc, adding metoprolol * SIRS - elevated wbc's (36K --> 24K) and tachycardia. Doubt infection - suspect inflammation due to limb ischemia -CTA as above -trend wbc's * Full code * Dispo - cont inpt Subjective: Pt says his leg hurts. Also c/o SOB. Denies CP or pleuritic symptoms. No fevers. No cough. Taking po well, drinking a lot, urine is clear and copious. Objective: Vital Signs Temp Pulse Resp BP Pulse Ox 36.8 C 139 H 20 179/99 H 91 L 08/20/18 11:48 08/20/18 11:48 08/20/18 11:48 08/20/18 11:48 08/20/18 11:48 Laboratory Results 08/20/18 05:07 08/20/18 05:07 08/19/18 08/20/18 08/21/18 05:59 05:59 05:59 Intake Total 4457 2606 Output Total 1625 2400 1650 Balance 2832 206 -1650 PT 22.8 SEC (12.0-15.0) H 08/20/18 05:07 INR 2.01 (0.83-1.16) H 08/20/18 05:07 - Physical Exam Constitutional: no apparent distress Eyes: PERRL Ears, Nose, Mouth, Throat: moist mucous membranes Cardiovascular: tachycardia Respiratory: no respiratory distress, clear to auscultation Gastrointestinal: normoactive bowel sounds, soft, non-tender abdomen Skin: warm Musculoskeletal: full muscle strength, other (distal extremities warm, pulses present by doppler) Neurologic: AAOx3 Psychiatric: interacting appropriately ICD10 Worksheet Patient Problems: Problems Problem Status Onset Acute retention of urine Acute Arterial occlusion Acute
[2018-08-20] MEDS ORDERED: amLODIPine BESYLATE 5 MG TAB PO ONE (14:42)
[2018-08-20] MEDS ORDERED: IOPAMIDOL (ISOVUE 370) 100 ML BTL IV ONE (15:28)
[2018-08-20] MEDS: BACLOFEN 10 MG TAB PO SCH ×2 (16:51→21:12)
[2018-08-20] MEDS: WARFARIN SODIUM 5 MG TAB PO SCH (16:51)
[2018-08-20] MEDS: METOPROLOL TARTRATE 25 MG TAB PO SCH ×2 (17:00→21:12)
[2018-08-20] MEDS: LORazepam 1 MG TAB PO PRN (19:36)
[2018-08-20] MEDS: HYDROCODONE/APAP 5/325 TAB PO PRN (19:36)
[2018-08-21 05:04] LABS: PLATELET COUNT 931 10^3/uL (150-400)
[2018-08-21 05:13] LABS: INR 2.59 (0.83-1.16); PROTIME(PATIENT) 27.7 SEC (12.0-15.0)
[2018-08-21] MEDS: LISINOPRIL/HCTZ 20/12.5MG 1 EA TAB PO SCH (08:37)
[2018-08-21] MEDS: PREGABALIN 75 MG CAP PO SCH ×2 (08:37→21:13)
[2018-08-21] MEDS: ATORVASTATIN CALCIUM 40 MG TAB PO SCH (08:37)
[2018-08-21] MEDS: ASPIRIN 81 MG CHEWABLE TAB PO SCH (08:37)
[2018-08-21] MEDS: METOPROLOL TARTRATE 25 MG TAB PO SCH ×2 (08:37→21:13)
[2018-08-21] MEDS: BACLOFEN 10 MG TAB PO SCH ×3 (08:38→21:13)
[2018-08-21] MEDS ORDERED: amLODIPine BESYLATE 5 MG TAB PO SCH ×2 (09:00)
[2018-08-21] MEDS: chlorproMAZINE HCL 25 MG TAB PO PRN (09:47)
--- NOTE | 2018-08-21 10:00 | SOAPPROG ---
ELVIS Progress Note Assessment/Plan: Assessment: FOOT WARMER BUT STILL PAINFUL ANT TIB VESSEL REASONABLY OPEN RISKS AND OPTIONS FULLY DISCUSSED Plan:FEM-TIB BYPASS/ POSSIBLY WILL NEED FASCIOTOMIES/ WILL SCHEDULE IN AM PROBABLY 08/16/18 08:19 08/18/18 14:47 STATUS POST FEM ANTERIOR TIBIAL BYPASS WITH SAPHENOUS VEIN/REASONABLY COMFORTABLE WITH NO COMPLAINTS AFEBRILE/VITAL SIGNS STABLE/URINE OUTPUT SLUGGISH WOUND OKAY/PALPABLE PEDAL PULSE AND PINK WARM TOES IMPRESSION: STABLE WITH THE VIABLE FOOT/NO NEED FOR FASCIOTOMIES AT THIS TIME 08/18/18 15:35 LEG HAS SHOWN SOME IMPROVEMENT IN ANGIOGRAPHY SHOWS A PATENT ANTERIOR TIBIAL ARTERY DOWN TO THE ANKLE WITH SOME RUNOFF TO THE DORSALIS PEDIS. HOWEVER TODAY HEAD ARTERIAL STUDY OF HIS LEG REVEALS NO FLOW IN THAT ANTERIOR TIBIAL ARTERY. RISKS AND OPTIONS BEEN FULLY DISCUSSED AND HE WISHES TO PROCEED WITH POSSIBLE FEM TIBIAL BYPASS FOR LIMB SALVAGE. HE FULLY UNDERSTANDS THE RISK THAT HE IS FACING INCLUDING NEED FOR AMPUTATION IF THIS IS UNSUCCESSFUL NO PALPABLE OR DOPPLERABLE PEDAL PULSES/MULTIPLE ISCHEMIC LESIONS IN HIS RIGHT FOOT CHEST CLEAR COR REGULAR RHYTHM 08/20/18 09:43 COMFORTABLE/FOOT WARM/GOOD PALPABLE PULSES/WOUNDS OKAY LABS REASONABLY GOOD BUT WBC STILL 26 K AND CPK 500 MAJOR COMPLAINT IS HICCUPS/ NO NEED FOR FURTHER FASCIOTOMY YET/AMBULATING ADEQUATELY/WANTS TO GO HOME TOMORROW 08/21/18 09:59 DOING WELL THIS MORNING/AMBULATING/GOOD PULSE/SOME EDEMA IN HIS FOOT/COUMADIN THERAPEUTIC/INR 2.6/WBC IMPROVED TO 21 K PLAN TO REHAB SOON Objective: Vital Signs Temp Pulse Resp BP Pulse Ox 36.6 C 111 H 20 160/101 H 95 08/21/18 07:33 08/21/18 08:37 08/21/18 07:33 08/21/18 08:38 08/21/18 07:33 Laboratory Results 08/21/18 04:52 08/21/18 04:52 08/20/18 08/21/18 08/22/18 05:59 05:59 05:59 Intake Total 2606 2375 200 Output Total 2400 3900 475 Balance 206 -1525 -275 PT 27.7 SEC (12.0-15.0) H 08/21/18 04:52 INR 2.59 (0.83-1.16) H 08/21/18 04:52 ICD10 Worksheet Patient Problems: Problems Problem Status Onset Acute retention of urine Acute Arterial occlusion Acute
[2018-08-21] MEDS ORDERED: amLODIPine BESYLATE 5 MG TAB PO ONE (10:59)
--- NOTE | 2018-08-21 11:01 | HOSPPROG ---
Hospitalist Progress Note Assessment/Plan: * PVD with critical limb ischemia RLE - s/p fem-anterior tib bypass - attempt at limb salvage, s/p failed tpa lysis -cont ASA/statin plus coumadin * Groin hematoma -follow * afib - on warfarin, INR therapeutic. Note h/o non-compliance - presented with subtherapeutic INR -cont warfarin, BB * tachycardia - CTA neg for PE. HR improved on metoprolol -cont BB, pain control * Chronic foot wounds -wound care * Polycythemia vera * HTN - poor control -increase norvasc -cont metoprolol * SIRS - Likely inflammatory response to limb ischemia. Better today, wbc's cont to trend down. HR improved. * Full code * Dispo - cont inpt, likely to SNF 1-2 days Subjective: Pt feels well today. No CP or SOB. Pain controlled. He is weak. Appetite good. No complaints. Objective: Vital Signs Temp Pulse Resp BP Pulse Ox 36.6 C 111 H 20 160/101 H 95 08/21/18 07:33 08/21/18 08:37 08/21/18 07:33 08/21/18 08:38 08/21/18 07:33 Laboratory Results 08/21/18 04:52 08/21/18 04:52 08/20/18 08/21/18 08/22/18 05:59 05:59 05:59 Intake Total 2606 2375 200 Output Total 2400 3900 475 Balance 206 -1525 -275 PT 27.7 SEC (12.0-15.0) H 08/21/18 04:52 INR 2.59 (0.83-1.16) H 08/21/18 04:52 - Physical Exam Constitutional: no apparent distress Eyes: PERRL Ears, Nose, Mouth, Throat: moist mucous membranes Cardiovascular: regular rate and rhythym Respiratory: no respiratory distress, clear to auscultation Gastrointestinal: normoactive bowel sounds, soft, non-tender abdomen Skin: warm Musculoskeletal: full muscle strength, other (distal LE's warm) Neurologic: AAOx3 Psychiatric: interacting appropriately ICD10 Worksheet Patient Problems: Problems Problem Status Onset Acute retention of urine Acute Arterial occlusion Acute
--- NOTE | 2018-08-21 13:40 | ASMTCMCOM ---
CM Note CM Note Notes: [facility] pt and the other 2 SNFs are pending onsite. Can likely dc Monday to SNF. DC Plan: SNF/ [facility] Date Signed: 08/21/2018 01:39 PM Electronically Signed By:Faith Butler RN
[2018-08-21] MEDS: HYDROCODONE/APAP 5/325 TAB PO PRN (13:46)
[2018-08-21] MEDS ORDERED: WARFARIN SODIUM 5 MG TAB PO SCH (16:00)
[2018-08-21] MEDS ORDERED: WARFARIN SODIUM 2.5 MG TAB PO ONE (16:00)
[2018-08-21] MEDS ORDERED: POTASSIUM CL 10 MEQ TAB PO ONE (19:58)
[2018-08-21] MEDS: LORazepam 1 MG TAB PO PRN (20:30)
[2018-08-21] MEDS: hydrALAZINE 20 MG/ML VIAL IVP PRN (23:48)
[2018-08-22] MEDS: LORazepam 1 MG TAB PO PRN ×2 (04:08→21:34)
[2018-08-22] MEDS: chlorproMAZINE HCL 25 MG TAB PO PRN (04:11)
[2018-08-22 05:18] LABS: INR 2.38 (0.83-1.16)
[2018-08-22 05:44] LABS: PLATELET COUNT 1057 10^3/uL (150-400)
--- NOTE | 2018-08-22 07:57 | POSTANESTH ---
Post Anesthetic Evaluation Cardiovascular Status: Normal, Stable Respiratory Status: Normal, Stable Level of Consciousness/Mental Status: Can Participate in Eval Pain Control: Adequate, Prn Tx Ordered Nausea/Vomiting Control: Adequate, Prn Tx Ordered Complications Possibly Related to Anesthesia: None Noted (for 08/17/18)
[2018-08-22] MEDS: ASPIRIN 81 MG CHEWABLE TAB PO SCH (09:06)
[2018-08-22] MEDS: ATORVASTATIN CALCIUM 40 MG TAB PO SCH (09:06)
[2018-08-22] MEDS: PREGABALIN 75 MG CAP PO SCH ×2 (09:06→21:34)
[2018-08-22] MEDS: METOPROLOL TARTRATE 25 MG TAB PO SCH ×2 (09:06→21:34)
[2018-08-22] MEDS: BACLOFEN 10 MG TAB PO SCH ×3 (09:06→21:34)
[2018-08-22] MEDS: LISINOPRIL/HCTZ 20/12.5MG 1 EA TAB PO SCH (09:07)
[2018-08-22] MEDS: amLODIPine BESYLATE 5 MG TAB PO SCH (09:07)
--- NOTE | 2018-08-22 16:10 | HOSPPROG ---
Hospitalist Progress Note Assessment/Plan: * PVD with critical limb ischemia RLE - s/p fem-anterior tib bypass - attempt at limb salvage, s/p failed tpa lysis -cont ASA/statin plus coumadin * Groin hematoma -follow * afib - on warfarin, INR therapeutic. Note h/o non-compliance - presented with subtherapeutic INR -cont warfarin, BB * tachycardia - CTA neg for PE. HR improved on metoprolol -cont BB, pain control * Chronic foot wounds -wound care * Polycythemia vera * HTN - poor control -increase norvasc -cont metoprolol * SIRS - Likely inflammatory response to limb ischemia. Better today, wbc's cont to trend down. HR improved. * Thrombocytosis - suspect APR, inflammatory response to limb ischemia * Full code * Dispo - cont inpt, likely to SNF 1-2 days Subjective: Pt feels ok. Pain controlled. No Cp or SOB. Eating well. Still weak. Objective: Vital Signs Temp Pulse Resp BP Pulse Ox 36.9 C 106 H 17 141/94 H 93 08/22/18 15:30 08/22/18 15:30 08/22/18 15:30 08/22/18 15:30 08/22/18 15:30 Laboratory Results 08/22/18 04:43 08/22/18 04:43 08/21/18 08/22/18 08/23/18 05:59 05:59 05:59 Intake Total 2375 200 200 Output Total 3900 1650 300 Balance -1525 -1450 -100 PT 26.0 SEC (12.0-15.0) H 08/22/18 04:43 INR 2.38 (0.83-1.16) H 08/22/18 04:43 - Physical Exam Constitutional: no apparent distress Eyes: PERRL Ears, Nose, Mouth, Throat: moist mucous membranes Cardiovascular: regular rate and rhythym Respiratory: no respiratory distress Gastrointestinal: normoactive bowel sounds, soft, non-tender abdomen Skin: warm Musculoskeletal: full muscle strength Neurologic: AAOx3 Psychiatric: interacting appropriately ICD10 Worksheet Patient Problems: Problems Problem Status Onset Acute retention of urine Acute Arterial occlusion Acute
--- NOTE | 2018-08-22 16:19 | ASMTCMCOM ---
CM Note CM Note Notes: Updates sent to [facility] pt. [facility] with [facility] here to complete on-stie. [facility] unable to accept pt. D/c plan of care: [facility] Date Signed: 08/22/2018 04:18 PM Electronically Signed By:KEVIN Mcleod
[2018-08-22] MEDS: WARFARIN SODIUM 5 MG TAB PO SCH (16:32)
[2018-08-22] MEDS: HYDROCODONE/APAP 5/325 TAB PO PRN (16:33)
[2018-08-23 05:02] LABS: INR 2.42 (0.83-1.16); PROTIME(PATIENT) 26.3 SEC (12.0-15.0)
[2018-08-23 05:13] LABS: PLATELET COUNT 1176 10^3/uL (150-400)
[2018-08-23] MEDS: HYDROCODONE/APAP 5/325 TAB PO PRN ×2 (07:35→20:02)
[2018-08-23] MEDS: amLODIPine BESYLATE 5 MG TAB PO SCH (09:20)
[2018-08-23] MEDS: LISINOPRIL/HCTZ 20/12.5MG 1 EA TAB PO SCH (09:20)
[2018-08-23] MEDS: ASPIRIN 81 MG CHEWABLE TAB PO SCH (09:20)
[2018-08-23] MEDS: ATORVASTATIN CALCIUM 40 MG TAB PO SCH (09:20)
[2018-08-23] MEDS: BACLOFEN 10 MG TAB PO SCH ×3 (09:21→21:32)
[2018-08-23] MEDS: METOPROLOL TARTRATE 25 MG TAB PO SCH ×2 (09:21→20:03)
[2018-08-23] MEDS: PREGABALIN 75 MG CAP PO SCH ×2 (09:21→20:03)
--- NOTE | 2018-08-23 09:33 | CPEKG ---
Test Reason : OPEN Blood Pressure : / mmHG Vent. Rate : 121 BPM Atrial Rate : 125 BPM P-R Int : 116 ms QRS Dur : 090 ms QT Int : 324 ms P-R-T Axes : 053 054 013 degrees QTc Int : 460 ms Sinus tachycardia with irregular rate Probable left atrial enlargement Borderline T wave abnormalities Ectopic PAC Confirmed by Tim Maddox ([id number]) on 08/23/2018 9:33:06 AM Referred By: Confirmed By:Tim Maddox
--- NOTE | 2018-08-23 15:42 | HOSPPROG ---
Hospitalist Progress Note Assessment/Plan: * PVD with critical limb ischemia RLE - s/p fem-anterior tib bypass POD #6 - attempt at limb salvage, s/p failed tpa lysis -cont ASA/statin plus coumadin -surgery following * afib - on warfarin, INR therapeutic. Note h/o non-compliance - presented with subtherapeutic INR -cont warfarin, pharmacy dosing -cont BB * Polycythemia vera * Thrombocytosis - suspect related to PCV, plus APR / inflammatory response to limb ischemia. plts cont to rise, now ~1,100 -discussed with Dr. Perry, who will consult tomorrow (Monday) * tachycardia - CTA neg for PE. HR improved on metoprolol -cont BB, pain control * Chronic foot wounds -wound care * HTN - improved control on increased norvasc, cont metop * SIRS - Likely inflammatory response to limb ischemia. Better today, HR improved. CTA neg for PE. * Groin hematoma -follow * Full code * Dispo - cont inpt, d/c to SNF when ready Subjective: Pt doing ok, has some pain in leg with ambulation. No fevers/ chills. No CP or SOB. He is in good spirits. Good appetite. Objective: Vital Signs Temp Pulse Resp BP Pulse Ox 36.6 C 87 16 138/78 H 92 08/23/18 15:16 08/23/18 15:16 08/23/18 15:16 08/23/18 15:16 08/23/18 15:16 Laboratory Results 08/23/18 04:31 08/23/18 04:31 08/22/18 08/23/18 08/24/18 05:59 05:59 05:59 Intake Total 200 1300 Output Total 1650 1425 Balance -1450 -125 PT 26.3 SEC (12.0-15.0) H 08/23/18 04:31 INR 2.42 (0.83-1.16) H 08/23/18 04:31 - Physical Exam Constitutional: no apparent distress Eyes: PERRL Ears, Nose, Mouth, Throat: moist mucous membranes Cardiovascular: regular rate and rhythym Respiratory: no respiratory distress, clear to auscultation Gastrointestinal: normoactive bowel sounds, soft, non-tender abdomen Skin: warm, other (RLE dressed, extremities warm) Musculoskeletal: full muscle strength Neurologic: AAOx3 Psychiatric: interacting appropriately ICD10 Worksheet Patient Problems: Problems Problem Status Onset Acute retention of urine Acute Arterial occlusion Acute
[2018-08-23] MEDS: WARFARIN SODIUM 5 MG TAB PO SCH (16:43)
[2018-08-23] MEDS: LORazepam 1 MG TAB PO PRN (20:03)
[2018-08-24 06:08] LABS: INR 2.53 (0.83-1.16); PLATELET COUNT 1201 10^3/uL (150-400); PROTIME(PATIENT) 27.2 SEC (12.0-15.0)
[2018-08-24] MEDS: BACLOFEN 10 MG TAB PO SCH ×3 (09:03→21:01)
[2018-08-24] MEDS: METOPROLOL TARTRATE 25 MG TAB PO SCH ×2 (09:04→21:01)
[2018-08-24] MEDS: PREGABALIN 75 MG CAP PO SCH ×2 (09:05→21:02)
[2018-08-24] MEDS: LISINOPRIL/HCTZ 20/12.5MG 1 EA TAB PO SCH (09:05)
[2018-08-24] MEDS: amLODIPine BESYLATE 5 MG TAB PO SCH (09:05)
[2018-08-24] MEDS: ASPIRIN 81 MG CHEWABLE TAB PO SCH (09:05)
[2018-08-24] MEDS: ATORVASTATIN CALCIUM 40 MG TAB PO SCH (09:05)
[2018-08-24] MEDS: HYDROCODONE/APAP 5/325 TAB PO PRN ×2 (11:04→18:14)
--- NOTE | 2018-08-24 11:20 | ASMTCMCOM ---
CM Note CM Note Notes: Met with pt, understands he will be going to SNF when medically stable. He wants to go to [facility], [facility] sent updates. DC date uncertain. DC Plan: SNF/ [facility] Date Signed: 08/24/2018 11:20 AM Electronically Signed By:Faith Butler RN
--- NOTE | 2018-08-24 11:52 | HOSPPROG ---
Hospitalist Progress Note Assessment/Plan: Doc Zelaya is a 68 yo M with a PMHx of PVD, Asthma, HLD, HTN who presents to [facility] for SFA occlusion. First encounter, chart reviewed. * PVD with critical limb ischemia RLE - s/p fem-anterior tib bypass POD #7- attempt at limb salvage, s/p failed tpa lysis - ASA/statin plus Coumadin - surgery following * afib - on warfarin, INR therapeutic. Note h/o non-compliance - presented with subtherapeutic INR -cont warfarin, pharmacy dosing -cont BB * Polycythemia vera * Thrombocytosis - suspect related to PCV, plus APR / inflammatory response to limb ischemia. - Dr. Perry, will consult today, appreciate his involvment. * tachycardia - CTA neg for PE. HR improved on metoprolol -cont BB, pain control -tachycardia has resolved * Chronic foot wounds -wound care * HTN - Norvasc + metoprolol * SIRS - Likely inflammatory response to limb ischemia. * Groin hematoma -follow * Plan: Dr Perry to see today, will need a SNF. Subjective: Yovanny said he is feeling fine, wants to go home, but can't care for himself. Objective: Vital Signs Temp Pulse Resp BP Pulse Ox 36.5 C 82 18 137/64 H 92 08/24/18 08:00 08/24/18 08:00 08/24/18 08:00 08/24/18 08:00 08/24/18 08:00 Laboratory Results 08/24/18 05:06 08/23/18 04:31 08/23/18 08/24/18 08/25/18 05:59 05:59 05:59 Intake Total 1300 1000 Output Total 1425 925 Balance -125 75 PT 27.2 SEC (12.0-15.0) H 08/24/18 05:06 INR 2.53 (0.83-1.16) H 08/24/18 05:06 - Physical Exam Constitutional: appears nourished, chronically ill appearing, uncomfortable Eyes: PERRL Ears, Nose, Mouth, Throat: hearing normal Cardiovascular: regular rate and rhythym Respiratory: no respiratory distress Skin: warm, other (right leg in a large justin wrap) Musculoskeletal: generalized weakness, other (hx of CVA so has residual r sided weakness) Neurologic: AAOx3 Psychiatric: interacting appropriately ICD10 Worksheet Patient Problems: Problems Problem Status Onset Acute retention of urine Acute Arterial occlusion Acute
[2018-08-24] MEDS: HYDROXYUREA 500 MG CAP PO SCH (16:28)
[2018-08-24] MEDS: WARFARIN SODIUM 5 MG TAB PO SCH (16:28)
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
--- NOTE | 2018-08-24 19:11 | SOAPPROG ---
SOAP Progress Note Assessment/Plan: Assessment: FOOT WARMER BUT STILL PAINFUL ANT TIB VESSEL REASONABLY OPEN RISKS AND OPTIONS FULLY DISCUSSED Plan:FEM-TIB BYPASS/ POSSIBLY WILL NEED FASCIOTOMIES/ WILL SCHEDULE IN AM PROBABLY 08/16/18 08:19 08/18/18 14:47 STATUS POST FEM ANTERIOR TIBIAL BYPASS WITH SAPHENOUS VEIN/REASONABLY COMFORTABLE WITH NO COMPLAINTS AFEBRILE/VITAL SIGNS STABLE/URINE OUTPUT SLUGGISH WOUND OKAY/PALPABLE PEDAL PULSE AND PINK WARM TOES IMPRESSION: STABLE WITH THE VIABLE FOOT/NO NEED FOR FASCIOTOMIES AT THIS TIME 08/18/18 15:35 LEG HAS SHOWN SOME IMPROVEMENT IN ANGIOGRAPHY SHOWS A PATENT ANTERIOR TIBIAL ARTERY DOWN TO THE ANKLE WITH SOME RUNOFF TO THE DORSALIS PEDIS. HOWEVER TODAY HEAD ARTERIAL STUDY OF HIS LEG REVEALS NO FLOW IN THAT ANTERIOR TIBIAL ARTERY. RISKS AND OPTIONS BEEN FULLY DISCUSSED AND HE WISHES TO PROCEED WITH POSSIBLE FEM TIBIAL BYPASS FOR LIMB SALVAGE. HE FULLY UNDERSTANDS THE RISK THAT HE IS FACING INCLUDING NEED FOR AMPUTATION IF THIS IS UNSUCCESSFUL NO PALPABLE OR DOPPLERABLE PEDAL PULSES/MULTIPLE ISCHEMIC LESIONS IN HIS RIGHT FOOT CHEST CLEAR COR REGULAR RHYTHM 08/20/18 09:43 COMFORTABLE/FOOT WARM/GOOD PALPABLE PULSES/WOUNDS OKAY LABS REASONABLY GOOD BUT WBC STILL 26 K AND CPK 500 MAJOR COMPLAINT IS HICCUPS/ NO NEED FOR FURTHER FASCIOTOMY YET/AMBULATING ADEQUATELY/WANTS TO GO HOME TOMORROW 08/21/18 09:59 DOING WELL THIS MORNING/AMBULATING/GOOD PULSE/SOME EDEMA IN HIS FOOT/COUMADIN THERAPEUTIC/INR 2.6/WBC IMPROVED TO 21 K PLAN TO REHAB SOON 08/24/18 19:10 pulse good/ wounds ok/ afebrile/ inr 2.5/ wbc still elevated Objective: Vital Signs Temp Pulse Resp BP Pulse Ox 36.9 C 92 16 140/73 H 92 08/24/18 15:44 08/24/18 15:44 08/24/18 15:44 08/24/18 15:44 08/24/18 15:44 Laboratory Results 08/24/18 05:06 08/23/18 04:31 08/23/18 08/24/18 08/25/18 05:59 05:59 05:59 Intake Total 1300 1000 Output Total 1425 925 800 Balance -125 75 -800 PT 27.2 SEC (12.0-15.0) H 08/24/18 05:06 INR 2.53 (0.83-1.16) H 08/24/18 05:06 ICD10 Worksheet Patient Problems: Problems Problem Status Onset Acute retention of urine Acute Arterial occlusion Acute
[2018-08-24] MEDS: LORazepam 1 MG TAB PO PRN (21:00)
[2018-08-25] MEDS: BACLOFEN 10 MG TAB PO SCH ×3 (07:53→21:14)
[2018-08-25] MEDS: LISINOPRIL/HCTZ 20/12.5MG 1 EA TAB PO SCH (07:54)
[2018-08-25] MEDS: METOPROLOL TARTRATE 25 MG TAB PO SCH ×2 (07:54→21:14)
[2018-08-25] MEDS: HYDROXYUREA 500 MG CAP PO SCH (07:54)
[2018-08-25] MEDS: ASPIRIN 81 MG CHEWABLE TAB PO SCH (07:54)
[2018-08-25] MEDS: ATORVASTATIN CALCIUM 40 MG TAB PO SCH (07:55)
[2018-08-25] MEDS: amLODIPine BESYLATE 5 MG TAB PO SCH (07:55)
[2018-08-25] MEDS: PREGABALIN 75 MG CAP PO SCH ×2 (08:42→21:14)
--- NOTE | 2018-08-25 12:32 | SOAPPROG ---
SOAP Progress Note Assessment/Plan: Assessment: s/p fem tib bypass awaiting placement Foot warm Okay to shower without protecting wound Plan: 08/25/18 12:31 Objective: Vital Signs Temp Pulse Resp BP Pulse Ox 36.5 C 82 18 135/76 H 94 08/25/18 11:49 08/25/18 11:49 08/25/18 11:49 08/25/18 11:49 08/25/18 11:49 Microbiology 08/19/18 18:36 Blood Culture - Final Blood 08/19/18 17:40 Blood Culture - Final Blood Laboratory Results 08/24/18 05:06 08/23/18 04:31 08/24/18 08/25/18 08/26/18 05:59 05:59 05:59 Intake Total 1000 400 Output Total 925 1750 Balance 75 -1350 PT 27.2 SEC (12.0-15.0) H 08/24/18 05:06 INR 2.53 (0.83-1.16) H 08/24/18 05:06 ICD10 Worksheet Patient Problems: Problems Problem Status Onset Acute retention of urine Acute Arterial occlusion Acute
--- NOTE | 2018-08-25 13:40 | SOAPPROG ---
SOAP Progress Note Assessment/Plan: Assessment: 1) Myeloproliferative syndrome 2) Recent Right fem/pop bypass 3) H/O CVA Plan: Hydrea started by Dr. Perry yesterday. So far, patient has not had any side effects related to this Tx. Will order a CBC for am. No current indication for plateletpharesis. Doing well from post op standpoint. Likely d/c to SNF once fully recovered from surgery. 08/25/18 13:36 08/25/18 13:40 Subjective: Started Hydrea. Denies n/v, diarrhea, mucocytis, skin rash. Objective: Vital Signs Temp Pulse Resp BP Pulse Ox 36.5 C 82 18 135/76 H 94 08/25/18 11:49 08/25/18 11:49 08/25/18 11:49 08/25/18 11:49 08/25/18 11:49 Microbiology 08/19/18 18:36 Blood Culture - Final Blood 08/19/18 17:40 Blood Culture - Final Blood Laboratory Results 08/24/18 05:06 08/23/18 04:31 08/24/18 08/25/18 08/26/18 05:59 05:59 05:59 Intake Total 1000 400 Output Total 925 1750 450 Balance 75 -1350 -450 PT 27.2 SEC (12.0-15.0) H 08/24/18 05:06 INR 2.53 (0.83-1.16) H 08/24/18 05:06 - Time Spent With Patient Time Spent With Patient: 16 minutes Physical Exam - Physical Exam General Appearance: alert, no apparent distress EENT: PERRL/EOMI Abdomen: non-tender, soft Extremities: other (Right LE with good capillary refill all toes) Neuro/Psych: alert, oriented x 3 ICD10 Worksheet Patient Problems: Problems Problem Status Onset Acute retention of urine Acute Arterial occlusion Acute
[2018-08-25] MEDS: HYDROCODONE/APAP 5/325 TAB PO PRN ×2 (14:01→21:13)
--- NOTE | 2018-08-25 14:45 | HOSPPROG ---
Hospitalist Progress Note Assessment/Plan: Doc Zelaya is a 68 yo M with a PMHx of PVD, Asthma, HLD, HTN who presents to [facility] for SFA occlusion. First encounter, chart reviewed. * PVD with critical limb ischemia RLE - s/p fem-anterior tib bypass POD #8- attempt at limb salvage, s/p failed tpa lysis - ASA/statin plus Coumadin - surgery following * afib - on warfarin, INR therapeutic. Note h/o non-compliance - presented with subtherapeutic INR -cont warfarin, pharmacy dosing -cont BB * Myeloproliferative syndrome -started on Hydrea -no indication for plateletpheresis * tachycardia - CTA neg for PE. HR improved on metoprolol -cont BB, pain control -tachycardia has resolved * Chronic foot wounds -wound care * HTN - Norvasc + metoprolol * SIRS - Likely inflammatory response to limb ischemia. * Groin hematoma -follow * hx of CVA *insomnia -added Melatonin *Plan: can dc if ok w surgery. He will need SNF. Subjective: Yovanny is tired today, his r leg is not very painful and he is feeling well. Objective: Vital Signs Temp Pulse Resp BP Pulse Ox 36.5 C 82 18 135/76 H 94 08/25/18 11:49 08/25/18 11:49 08/25/18 11:49 08/25/18 11:49 08/25/18 11:49 Microbiology 08/19/18 18:36 Blood Culture - Final Blood 08/19/18 17:40 Blood Culture - Final Blood Laboratory Results 08/24/18 05:06 08/23/18 04:31 08/24/18 08/25/18 08/26/18 05:59 05:59 05:59 Intake Total 1000 400 Output Total 925 1750 450 Balance 75 -1350 -450 PT 27.2 SEC (12.0-15.0) H 08/24/18 05:06 INR 2.53 (0.83-1.16) H 08/24/18 05:06 - Physical Exam Constitutional: appears nourished, not in pain, chronically ill appearing Eyes: PERRL Ears, Nose, Mouth, Throat: hearing normal Cardiovascular: regular rate and rhythym Respiratory: no respiratory distress Gastrointestinal: normoactive bowel sounds Skin: warm, other (right lower ext w significant swelling, foot warm. ) Musculoskeletal: generalized weakness Neurologic: AAOx3 Psychiatric: interacting appropriately ICD10 Worksheet Patient Problems: Problems Problem Status Onset Acute retention of urine Acute Arterial occlusion Acute
[2018-08-25] MEDS: WARFARIN SODIUM 5 MG TAB PO SCH (16:19)
[2018-08-25] MEDS: LORazepam 1 MG TAB PO PRN ×2 (16:40→21:14)
[2018-08-25] MEDS ORDERED: MELATONIN 3 MG TAB PO SCH (21:00)
[2018-08-26 05:56] LABS: PLATELET COUNT 1317 10^3/uL (150-400)
[2018-08-26] MEDS: ASPIRIN 81 MG CHEWABLE TAB PO SCH (08:08)
[2018-08-26] MEDS: amLODIPine BESYLATE 5 MG TAB PO SCH (08:08)
[2018-08-26] MEDS: LISINOPRIL/HCTZ 20/12.5MG 1 EA TAB PO SCH (08:09)
[2018-08-26] MEDS: PREGABALIN 75 MG CAP PO SCH (08:09)
[2018-08-26] MEDS: HYDROXYUREA 500 MG CAP PO SCH (08:09)
[2018-08-26] MEDS: BACLOFEN 10 MG TAB PO SCH (08:09)
[2018-08-26] MEDS: ATORVASTATIN CALCIUM 40 MG TAB PO SCH (08:09)
[2018-08-26] MEDS: METOPROLOL TARTRATE 25 MG TAB PO SCH (08:09)
[2018-08-26 08:10] VITALS: BP 136/85
[2018-08-26] MEDS: HYDROCODONE/APAP 5/325 TAB PO PRN (08:28)
--- NOTE | 2018-08-26 09:37 | PDIAF ---
- Diagnosis Diagnosis: PVD Code Status: Full Code - Medication Management Discharge Medications: electronically signed and located in the Home Medication List. PICC Care - Routine: N/A - Orders Services needed: Registered Nurse, Physical Therapy, Occupational Therapy Diet Recommendation: no restrictions on diet - Labs/Radiology PT/INR Date: 08/27/18 - Follow Up Care Current Providers and Referrals: Cathy Ying DO [Primary Care Provider] - Radha Amador MD [Medical Doctor] -
--- NOTE | 2018-08-26 10:15 | ASMTDCNOTE ---
Case Management Discharge Discharge Order Complete? Answers: Yes Patient to Obtain Answers: Other Notes: [facility] Medications Transportation Arranged Answers: Other Notes: [facility] Transport will Pick (Date 08/26/2018 12:00 PM & Time) Case Management Transport Answers: No Form Complete Faxed Final Orders Answers: Yes Notes: [facility] Discharge Comments Notes: Patient has been discharged to [facility]. [facility] setting up transport. Date Signed: 08/26/2018 10:14 AM Electronically Signed By:Gaby Boswell LCSW
--- NOTE | 2018-08-26 10:16 | ASDISCHSUM ---
Discharge Information Plan Status:SNF Medically Cleared to Leave: Discharge Date: D/C Disposition: ADT D/C Disposition:[facility] Facility Projected Discharge Date:08/26/2018 11:00 AM Transportation at D/C: Discharge Delay Reason: Follow-Up Date:08/26/2018 11:00 AM Discharge Slot: Final Diagnosis:Arterial occlusion, Urinary retention Placement Information Referral Type:*Long-Term/SNF Referral ID:[id number] Provider Name:[facility] Address 1:[address] Address 2: City:[place] Selection Factors: State:[place] Patient Contact Information Contact Name:LYNNSAMMY Relationship:Son Address: Work Phone: City:[facility] Phone: [facility]/Zip Code:[place] Email: Financial Information Financial Class:Medicare Primary Plan Desc:MEDICARE INPATIENT Primary Plan Number:[id number] Secondary Plan Desc:MED[place] Secondary Plan Number:[id number] Assessment Information LACE LACE Length of stay for Answers: 7-13 days current admission Acuity / Level of Answers: Yes Care: Did the patient have an inpatient admission? Comorbidities - select Answers: Cerebrovascular disease all that apply (CVA, TIA, aneurysms, vasc ular dementia) Opioid dependence / Chronic pain Peripheral vascular disease Other Notes: HLD; HTN; Hep C # of Emergency department Answers: 1-2 visits in the last 6 months Score: 16 Date Signed: 08/26/2018 10:15 AM Electronically Signed By:Gaby Boswell LCSW [facility] CM Progress Note CM Note CM Note Notes: 68yo male admitted for Arterial occlusion, Urinary retention. He has a Hx of PVD, Asthma, HLD, HTN. Last month admitted for R foot ulcers. Getting [facility] Wound Care to eval, Therapies to eval. Patient lives alone. CM to follow. Date Signed: 08/14/2018 09:55 AM Electronically Signed By:Gaby Boswell LCSW [facility] CM Progress Note CM Note CM Note Notes: 08/19/2018 Case Management Note Met w/pt to discuss discharge needs. Pt had previous stay at [facility]. Faxed referrals to [facility], [facility] and [facility]. Discharge date unclear. Case Management d/c poc: SNF rehab pending acceptance. Case Management to follow. Date Signed: 08/19/2018 12:22 PM Electronically Signed By:Becky Kunz RN [facility] CM Progress Note CM Note CM Note Notes: [facility] accepted pt and the other 2 SNFs are pending onsite. Can likely dc Monday to SNF. DC Plan: SNF/ [facility] Date Signed: 08/21/2018 01:39 PM Electronically Signed By:Faith Butler RN [facility] CM Progress Note CM Note CM Note Notes: Updates sent to [facility] who can still accept pt. [facility] with [facility] here to complete on-stie. [facility] unable to accept pt. D/c plan of care: Likely [facility] SNF Date Signed: 08/22/2018 04:18 PM Electronically Signed By:KEVIN [facility] Progress Note CM Note CM Note Notes: Met with pt, understands he will be going to SNF when medically stable. He wants to go to [facility], CM sent updates. DC date uncertain. DC Plan: SNF/ [facility] Date Signed: 08/24/2018 11:20 AM Electronically Signed By:Faith Butler RN Case Management Discharge Plan Note Case Management Discharge Discharge Order Complete? Answers: Yes Patient to Obtain Answers: Other Notes: [facility] Medications Transportation Arranged Answers: Other Notes: [facility] Transport will Pick (Date 08/26/2018 12:00 PM & Time) Case Management Transport Answers: No Form Complete Faxed Final Orders Answers: Yes Notes: [facility] Discharge Comments Notes: Patient has been discharged to [facility]. setting up transport. Date Signed: 08/26/2018 10:14 AM Electronically Signed By:Gaby Gilbert, [employer] Intervention Information
--- NOTE | 2018-08-26 10:44 | SOAPPROG ---
SOAP Progress Note Assessment/Plan: Assessment: s/p fem tib bypass Going to [facility] Agitated when I wanted to examine his wounds as the dressings were changed 12 hours ago Upset when I told him that he did not need dressings especially if they cause him distress when removing them Upset he is not going home Remove every other staple /2 May shower without covering wound Put in orders in transfer of care and dc tab S: Rude and saying "Whatever" frequently Incisions are cdi Foot warm Less swelling on foot Pt refused for me to look at his toe Plan: 08/25/18 12:31 08/26/18 10:42 Objective: Vital Signs Temp Pulse Resp BP Pulse Ox 36.6 C 88 16 136/85 H 96 08/26/18 08:00 08/26/18 08:09 08/26/18 08:00 08/26/18 08:09 08/26/18 08:00 Microbiology 08/19/18 18:36 Blood Culture - Final Blood 08/19/18 17:40 Blood Culture - Final Blood Laboratory Results 08/26/18 05:25 08/23/18 04:31 08/25/18 08/26/18 08/27/18 05:59 05:59 05:59 Intake Total 400 100 300 Output Total 1750 850 500 Balance -1350 -750 -200 PT 27.2 SEC (12.0-15.0) H 08/24/18 05:06 INR 2.53 (0.83-1.16) H 08/24/18 05:06 ICD10 Worksheet Patient Problems: Problems Problem Status Onset Acute retention of urine Acute Arterial occlusion Acute
--- NOTE | 2018-08-26 10:49 | SOAPPROG ---
[facility] Progress Note Assessment/Plan: Assessment: 1) Myeloproliferative syndrome 2) Recent Right fem/pop bypass 3) H/O CVA Plan: Hydrea started by Dr. Perry Monday. So far, patient has not had any side effects related to this Tx. I will increase his dose to 500 mg BID. He should be discharged on this dose. No current indication for plateletpharesis. Doing well from post op standpoint. Likely d/c to SNF today. He should follow up in the office ([facility]) with Dr. Eddie Pereira in 1 - 2 weeks[address] I [address] notify Dr. Pereira of his discharge. Subjective: Patient will likely be d/c today to [facility]. Denies DURON, N/V, Diarrhea, skin rash Objective: Vital Signs Temp Pulse Resp BP Pulse Ox 36.6 C 88 16 136/85 H 96 08/26/18 08:00 08/26/18 08:09 08/26/18 08:00 08/26/18 08:09 08/26/18 08:00 Microbiology 08/19/18 18:36 Blood Culture - Final Blood 08/19/18 17:40 Blood Culture - Final Blood Laboratory Results 08/26/18 05:25 08/23/18 04:31 08/25/18 08/26/18 08/27/18 05:59 05:59 05:59 Intake Total 400 100 300 Output Total 1750 850 500 Balance -1350 -750 -200 PT 27.2 SEC (12.0-15.0) H 08/24/18 05:06 INR 2.53 (0.83-1.16) H 08/24/18 05:06 - Time Spent With Patient Time Spent With Patient: 15 minutes Physical Exam - Physical Exam General Appearance: alert, no apparent distress EENT: PERRL/EOMI Skin: No rash Neuro/Psych: alert ICD10 Worksheet Patient Problems: Problems Problem Status Onset Acute retention of urine Acute Arterial occlusion Acute
--- NOTE | 2018-08-26 14:19 | GDS ---
DISCHARGE DIAGNOSES: 1. Peripheral vascular disease with critical limb ischemia in the right lower extremity. 2. Atrial fibrillation. 3. Myeloproliferative syndrome. 4. Tachycardia. 5. Chronic foot wound. 6. Hypertension. 7. Systemic inflammatory response syndrome. 8. Groin hematoma. 9. History of cerebrovascular accident. 10. Insomnia. CONSULTATIONS: 1. Interventional Radiology. 2. Critical Care. 3. Surgery. 4. Hematology. PHYSICAL EXAM: GENERAL: The patient is alert. VITAL SIGNS: Afebrile at 36.6 , pulse is 88, respiratory rate 16, blood pressure is 136/85. He is saturating 96% on room air. I have seen and evaluated the patient on the day of discharge. HOSPITAL COURSE: The patient is a 68-year-old male with history of peripheral vascular disease evaluated and diagnosed with: 1. Peripheral vascular disease with critical limb ischemia of the right lower extremity. During this hospitalization, he had a femoral arterial tibial bypass. He is in the postoperative setting. He is tolerating this well. He is on aspirin and Coumadin, and he has been followed by Surgery. 2. History of atrial fibrillation. Again, he is on Coumadin. His INR is therapeutic. Continue his Coumadin in the outpatient setting. 3. Myeloproliferative syndrome. The patient has been started on Hydrea. He will follow with Dr. Pereira after discharge. 4. Tachycardia. Is negative for pulmonary emboli. He is tolerating beta kyrie. This is stable. 5. Chronic foot wounds. He will continue wound care. 6. Hypertension. This is being treated with Norvasc and Lopressor. 7. SIRS. This has resolved. 8. Groin hematoma. This is stable. 9. History of CVA. He is at his baseline. 10. Insomnia. This is stable. DISPOSITION: The patient will be discharged to [facility] for further rehabilitation and management. There are no pending studies. DISCHARGE MEDICATIONS: Please refer to EMR form. New medications, include Tylenol, Norvasc, baclofen, Thorazine, [place], Hydrea, Ativan, melatonin, Lopressor, oxycodone IR. FOLLOWUP: Will be with Cathy Ying, as well as Dr. Enrique Oconnell and Dr. Eddie Pereira. I spent greater than 35 minutes in the care, coordination, and management of patient's disposition. /[id number]/MODL MTDD
[2018-08-26] MEDS ORDERED: HYDROXYUREA 500 MG CAP PO SCH (21:00)
== END 2018-08-26 15:17 | DRG 253 ==
LOC: FIMAGING 10:41 → F2N 12:24 → F3E 08-19 18:14
PROVIDERS: ADMIT Radiology Diagnostic Radiology; ATTEND Internal Medicine
PROC: B41B1ZZ Fluoroscopy of Other Intra-Abdominal Arteries using Low Osmolar Contrast (ICD-10-PCS; 2018-08-13)
PROC: B41F1ZZ Fluoroscopy of Right Lower Extremity Arteries using Low Osmolar Contrast (ICD-10-PCS; 2018-08-13)
PROC: 3E05317 Introduction of Other Thrombolytic into Peripheral Artery, Percutaneous Approach (ICD-10-PCS; 2018-08-13)
PROC: B4101ZZ Fluoroscopy of Abdominal Aorta using Low Osmolar Contrast (ICD-10-PCS; 2018-08-13)
PROC: B41F1ZZ Fluoroscopy of Right Lower Extremity Arteries using Low Osmolar Contrast (ICD-10-PCS; 2018-08-14)
PROC: 047K3ZZ Dilation of Right Femoral Artery, Percutaneous Approach (ICD-10-PCS; 2018-08-14)
PROC: 3E05317 Introduction of Other Thrombolytic into Peripheral Artery, Percutaneous Approach (ICD-10-PCS; 2018-08-14)
PROC: B41F1ZZ Fluoroscopy of Right Lower Extremity Arteries using Low Osmolar Contrast (ICD-10-PCS; 2018-08-15)
PROC: 041K09Q Bypass Right Femoral Artery to Lower Extremity Artery with Autologous Venous Tissue, Open Approach (ICD-10-PCS; principal; 2018-08-17 11:30)
PROC: 04CK0ZZ Extirpation of Matter from Right Femoral Artery, Open Approach (ICD-10-PCS; principal; 2018-08-17 11:30)
DX: I74.3 Embolism and thrombosis of arteries of the lower extremities (principal); I70.8 Atherosclerosis of other arteries; I70.232 Atherosclerosis of native arteries of right leg with ulceration of calf; L97.412 Non-pressure chronic ulcer of right heel and midfoot with fat layer exposed; L97.311 Non-pressure chronic ulcer of right ankle limited to breakdown of skin; L97.511 Non-pressure chronic ulcer of other part of right foot limited to breakdown of skin; R65.10 Systemic inflammatory response syndrome (SIRS) of non-infectious origin without acute organ dysfunction; L76.32 Postprocedural hematoma of skin and subcutaneous tissue following other procedure; D45 Polycythemia vera; I48.2 Chronic atrial fibrillation; Z79.01 Long term (current) use of anticoagulants; I10 Essential (primary) hypertension; I16.0 Hypertensive urgency; E78.00 Pure hypercholesterolemia, unspecified; G47.00 Insomnia, unspecified; J45.909 Unspecified asthma, uncomplicated; Z87.891 Personal history of nicotine dependence; Z86.73 Personal history of transient ischemic attack (TIA), and cerebral infarction without residual deficits
CPT/HCPCS: 85520-90; 97110-GO; 97110-GP; 97116-GP; 97162-GP; 97164-GP; 97165-GO; 97530-GO; 97530-GP; 97535-GO; C1725; C1757; C1760; C1768; C1769; C1892; C1894; G8978-GP-CK; G8979-GP-CI; G8987-GO-CL; G8988-GO-CJ; J0360; J0690; J1100; J1170; J1644; J2250; J2270; J2310; J2370; J2405; J2704; J2720; J2997; J3010; Q9961; Q9967